=== PATIENT | female | born 1940 | race Caucasian/White ===

== ENCOUNTER 2020-04-11 07:53 | Outpatient (CLI) | payer MEDICARE, OTHER, SELFPAY ==
--- NOTE | ~2020-04-11 | CT_ITS ---
EXAMINATION: CT abdomen pelvis w con DATE: 04/11/2020 08:34 INDICATION: Unspecified abdominal pain TECHNIQUE: Computed tomography (CT) of the abdomen and pelvis was performed with 100 cc Omnipaque 350 intravenous contrast. The dose-length product was 1132.66 mGy-cm. Automated exposure control and ite rative reconstruction technique were employed. COMPARISON: None. FINDINGS: There is lingular atelectasis. Cardiomegaly. No significant pleural or pericardial effusion . There is a upper abdominal ventral hernia containing nonobstructed colon. Small fat-containing umbi lical hernia. The liver, spleen, pancreas, adrenal glands and kidneys are unremarkable. Gallbladder is not identifi ed, likely surgically absent. There is atherosclerosis of the aorta without aneurysm. No lymphadenopa thy. Nonobstructive bowel gas pattern. No free air or free fluid. No osteolytic or osteoblastic lesio ns. Moderate lumbar spondylosis. IMPRESSION: 1. Upper abdominal ventral hernia containing nonobstructed colon. Small fat-containing umbilical solo ia. 2: No acute abdominal abnormality identified. Reviewed, dictated and finalized at location A. IMPRESSION: 1. Upper abdominal ventral hernia containing nonobstructed colon. Small fat-con taining umbilical hernia. 2: No acute abdominal abnormality identified.
[2020-04-11 08:21] LABS: Estimated Glomerular Filt Rate 40
== END 2020-04-11 07:54 | disposition home or self-care (01) ==
PROVIDERS: PCP Internal Medicine; Visit Provider Physician Assistant
DX: K43.9 Ventral hernia without obstruction or gangrene (principal)
CPT/HCPCS: 36415; 74177; Q9967

== ENCOUNTER 2021-01-15 09:51 | Outpatient (CLI) | payer MEDICARE, SELFPAY | END 2021-01-15 09:52 | disposition home or self-care (01) | LOC: ANHCOVIDVC 09:51 | PROVIDERS: PCP Internal Medicine; Visit Provider Internal Medicine | DX: Z23 Encounter for immunization (principal) | CPT/HCPCS: 0001A; 91300 ==

== ENCOUNTER 2021-02-05 09:59 | Outpatient (CLI) | payer MEDICARE, SELFPAY | END 2021-02-05 10:00 | disposition home or self-care (01) | LOC: ANHCOVIDVC 09:59 | PROVIDERS: PCP Internal Medicine | DX: Z23 Encounter for immunization (principal) | CPT/HCPCS: 0002A; 91300 ==

== ENCOUNTER 2021-05-17 00:08 | Day surgery (SDC) | payer MEDICARE, SELFPAY ==
[2021-05-06 10:26] VITALS: BMI 38.3
[2021-05-17 07:44] VITALS: BP 138/69; PULSE 59; RESP 18; TEMP 35.8; O2SAT 97
[2021-05-17] MEDS: LACTATED RINGERS 1,000 ML 150 ML IV CONT (07:51)
[2021-05-17 07:57] LABS: Glucose Point of Care 99 mg/dl (65-105)
--- NOTE | 2021-05-17 08:40 | WPDANESEPPF ---
Anes - Initial Pre Proc Eval Procedure: Operation Date: 05/17/21 09:00 Proposed Procedures p Esophagogastroduodenoscopy - Lai Rollins MD Date/Time: 05/17/21 08:40 Surgeon: Lai Rollins MD Pre Op Diagnosis: dysphagia Patient Data Age: 80 Gender: F Height: 1.55 m Weight: 93 kg Last Vital Signs Temp 96.5 F L 05/17/21 07:44 Pulse 59 L 05/17/21 07:44 Resp 18 05/17/21 07:44 BP 138/69 05/17/21 07:44 Pulse Ox 97 05/17/21 07:44 Allergies Allergy/AdvReac Type Severity Reaction Status Date / Time lisinopril Allergy Mild Cough Verified 05/17/21 07:43 Home Medications Medication Instructions Recorded Confirmed Type aspirin 81 mg tablet,delayed 81 mg PO DAILY 03/26/20 05/06/21 History release atorvastatin 20 mg tablet 20 mg PO DAILY 03/26/20 05/06/21 History ergocalciferol (vitamin D2) 1,250 1,250 mcg PO .every other week cap 03/26/20 05/06/21 History mcg (50,000 unit) capsule furosemide 20 mg tablet 40 mg PO QAM tablet 03/26/20 05/06/21 History hydralazine 25 mg tablet 25 mg PO BID tablet 03/26/20 05/06/21 History lancets #50 each 03/26/20 03/28/21 History losartan 25 mg tablet 25 mg PO DAILY 03/26/20 05/06/21 History metoprolol tartrate 25 mg tablet 12.5 mg PO BID tablet 03/26/20 05/17/21 History oxybutynin chloride 5 mg tablet 5 mg PO DAILY 03/26/20 05/06/21 History blood sugar diagnostic #100 ea 11/12/20 03/28/21 Rx lancets 33 gauge #100 each 11/12/20 03/28/21 Rx fluticasone propionate 50 2 spray INTRANASAL DAILY PRN #15.8 12/26/20 05/06/21 Rx mcg/actuation nasal ml spray,suspension levothyroxine 112 mcg tablet 112 mcg PO DAILY #90 tablet 02/14/21 05/06/21 Rx metformin 500 mg tablet 500 mg PO BID #180 tablet 04/08/21 05/06/21 Rx cyclobenzaprine 5 mg PO DAILY 05/06/21 05/06/21 History Laboratory Tests 05/17/21 07:50 POC Capillary Glucose 99 mg/dl mg/dl (65-105) Patient hx anesthesia problems: none Family hx anesthesia problems: none [facility] Past Medical History Medical History (Updated 05/17/21 @ 08:40 by Aaron Guillaume MD) Essential (primary) hypertension Hypothyroidism Obesity Surgical History Surgical History (Updated 05/17/21 @ 08:40 by Aaron Guillaume MD) S/P CABG (coronary artery bypass graft) Family History Family History Sibling Patient's sister is in good health Family history of diabetes mellitus in first degree relative Patient's brother is in good health Father Family history of diabetes mellitus in first degree relative Patient's father is Mother Patient's mother is Social History Social History Smoking status: Never smoker Second hand tobacco smoke exposure: No Alcohol intake: current Alcohol use details: socially Substance use: never Substance use type: does not use Living arrangements: alone Spiritual care concerns: No Anes - Eval Final PreProcedure Day of Procedure 05/17/21 08:40 Patient weight: obese Heart: regular rate and rhythm Airway: Mallampati scale class II Neurological: alert and oriented Last oral intake: >/= 8 hours ASA classification: III Emergent: no Anesthetic plan: proceed Anesthesia type and monitoring: general GIVS and standard monitoring Informed Consent: The patient's anesthetic plan and its attendant risks and benefits were discussed with the patient/family/POA. Questions were solicited and answers provided to the satisfaction of the patient/family/POA.
--- NOTE | 2021-05-17 08:56 | PM.HPGS ---
History of Present Illness History of Present Illness Consent: Risks, benefits, and alternatives have been discussed and questions answered. Patient agrees to proceed with procedure. Chief complaint: dysphagia Narrative: Leila Baugh is a 80 year old female with intermittent dysphagia, no recent EGD Review of Systems Constitutional: Constitutional: Denies headache(s) and Denies weakness Eyes: Eyes: Denies blurry vision ENT: Reports Normal hearing present, Denies headache(s) and Denies neck pain Cardiovascular: Cardiovascular: Denies chest pain and Denies dyspnea Respiratory: Respiratory: Denies dyspnea Gastrointestinal: Gastrointestinal: Reports no additional gastrointestinal complaints Genitourinary: Genitourinary: Denies dysuria Musculoskeletal: Musculoskeletal: Denies neck pain Integumentary/Breasts: Skin/Breast: Denies dry skin Neurologic: Reports Normal hearing present, Denies headache(s) and Denies weakness Psychiatric: Psychiatric: Denies anxiety Endocrine: Endocrine: Denies change in body appearance Hematologic/Lymphatic: Hematologic/Lymphatic: Denies easy bleeding Allergic/Immunologic: Allergic/Immunologic: Denies urticaria PMFSH Past Medical History Medical History (Updated 05/17/21 @ 08:40 by Aaron Guillaume MD) Essential (primary) hypertension Hypothyroidism Obesity Surgical History Surgical History (Updated 05/17/21 @ 08:40 by Aaron Guillaume MD) S/P CABG (coronary artery bypass graft) Family History Family History Sibling Patient's sister is in good health Family history of diabetes mellitus in first degree relative Patient's brother is in good health Father Family history of diabetes mellitus in first degree relative Patient's father is Mother Patient's mother is Social History Social History Smoking status: Never smoker Second hand tobacco smoke exposure: No Alcohol intake: current Alcohol use details: socially Substance use: never Substance use type: does not use Living arrangements: alone Spiritual care concerns: No Meds Home Medications and Allergies Home Medications Medication Instructions Recorded Confirmed Type aspirin 81 mg tablet,delayed 81 mg PO DAILY 03/26/20 05/06/21 History release atorvastatin 20 mg tablet 20 mg PO DAILY 03/26/20 05/06/21 History ergocalciferol (vitamin D2) 1,250 1,250 mcg PO .every other week cap 03/26/20 05/06/21 History mcg (50,000 unit) capsule furosemide 20 mg tablet 40 mg PO QAM tablet 03/26/20 05/06/21 History hydralazine 25 mg tablet 25 mg PO BID tablet 03/26/20 05/06/21 History lancets #50 each 03/26/20 03/28/21 History losartan 25 mg tablet 25 mg PO DAILY 03/26/20 05/06/21 History metoprolol tartrate 25 mg tablet 12.5 mg PO BID tablet 03/26/20 05/17/21 History oxybutynin chloride 5 mg tablet 5 mg PO DAILY 03/26/20 05/06/21 History blood sugar diagnostic #100 ea 11/12/20 03/28/21 Rx lancets 33 gauge #100 each 11/12/20 03/28/21 Rx fluticasone propionate 50 2 spray INTRANASAL DAILY PRN #15.8 12/26/20 05/06/21 Rx mcg/actuation nasal ml spray,suspension levothyroxine 112 mcg tablet 112 mcg PO DAILY #90 tablet 02/14/21 05/06/21 Rx metformin 500 mg tablet 500 mg PO BID #180 tablet 04/08/21 05/06/21 Rx cyclobenzaprine 5 mg PO DAILY 05/06/21 05/06/21 History Allergies Allergy/AdvReac Type Severity Reaction Status Date / Time lisinopril Allergy Mild Cough Verified 05/17/21 07:43 Vital Signs Vital Signs - 24 hr 05/17/21 07:44 Temperature 96.5 F L Pulse Rate 59 L Respiratory Rate 18 Blood Pressure 138/69 Pulse Oximetry 97 Exam Const: General: comfortable and no acute distress HENMT: General nose exam: Normal nares present Eyes: General: appearance normal, both eyes and all related structures Neck: Neck: no
[2021-05-17 09:13] VITALS: BP 106/45; PULSE 50; RESP 10; O2SAT 98
[2021-05-17 09:23] VITALS: BP 113/53; PULSE 56; RESP 16; O2SAT 99
[2021-05-17 09:33] VITALS: BP 165/75; PULSE 53; RESP 13; O2SAT 99
== END 2021-05-17 09:50 | disposition home or self-care (01) ==
PROVIDERS: PCP Internal Medicine; Visit Provider Internal Medicine Gastroenterology
PROC: 0DJ08ZZ Inspection of Upper Intestinal Tract, Via Natural or Artificial Opening Endoscopic (ICD-10-PCS; CPT 43235; principal; 2021-05-17 09:00)
DX: R13.19 Other dysphagia (principal); K29.30 Chronic superficial gastritis without bleeding; I10 Essential (primary) hypertension; E03.9 Hypothyroidism, unspecified; Z95.1 Presence of aortocoronary bypass graft; Z79.82 Long term (current) use of aspirin; Z79.84 Long term (current) use of oral hypoglycemic drugs; E66.9 Obesity, unspecified; Z68.38 Body mass index [BMI] 38.0-38.9, adult
CPT/HCPCS: 43239; 82948; 87081; 88305; J2001; J2704; J7120

== ENCOUNTER → 2021-08-06 04:03 | Outpatient (CLI) | payer MEDICARE, SELFPAY ==
[2021-08-06 18:18] LABS: SARS-CoV-2 RNA PCR Negative
== END ==
PROVIDERS: PCP Internal Medicine; Visit Provider Physician Assistant
DX: Z20.822 Contact with and (suspected) exposure to COVID-19 (principal)
CPT/HCPCS: C9803; U0003; U0005

== ENCOUNTER 2021-10-21 02:04 | Day surgery (SDC) | payer MEDICARE, SELFPAY ==
[2021-10-17 11:04] VITALS: BMI 37.5
[2021-10-17 11:34] VITALS: BMI 37.5
[2021-10-21 09:08] VITALS: BP 154/77; PULSE 59; RESP 18; TEMP 36.1; O2SAT 97; BMI 38.2
[2021-10-21] MEDS: LACTATED RINGERS 1,000 ML 150 ML IV CONT (09:29)
[2021-10-21 09:30] LABS: Glucose Point of Care 83 mg/dl (65-105)
--- NOTE | 2021-10-21 09:40 | WPDANESEPPF ---
Anes - Initial Pre Proc Eval Procedure: Operation Date: 10/21/21 10:00 Proposed Procedures p Esophagogastroduodenoscopy - Lai Rollins MD Date/Time: 10/21/21 09:40 Surgeon: Lai Rollins MD Pre Op Diagnosis: gastritis Patient Data Age: 81 Gender: F Height: 1.55 m Weight: 91.8 kg Last Vital Signs Temp 97 F L 10/21/21 09:08 Pulse 59 L 10/21/21 09:08 Resp 18 10/21/21 09:08 BP 154/77 H 10/21/21 09:08 Pulse Ox 97 10/21/21 09:08 Allergies Allergy/AdvReac Type Severity Reaction Status Date / Time lisinopril Allergy Intermediate Difficulty Verified 10/21/21 09:04 Breathing Home Medications Medication Instructions Recorded Confirmed Type aspirin 81 mg tablet,delayed 81 mg PO DAILY 03/26/20 10/21/21 History release atorvastatin 20 mg tablet 20 mg PO DAILY 03/26/20 10/21/21 History hydralazine 25 mg tablet 25 mg PO BID tablet 03/26/20 10/21/21 History lancets #50 each 03/26/20 10/21/21 History losartan 25 mg tablet 25 mg PO DAILY 03/26/20 10/21/21 History metoprolol tartrate 25 mg tablet 12.5 mg PO BID tablet 03/26/20 10/21/21 History oxybutynin chloride 5 mg tablet 5 mg PO DAILY 03/26/20 10/21/21 History blood sugar diagnostic #100 ea 11/12/20 10/21/21 Rx lancets 33 gauge #100 each 11/12/20 10/21/21 Rx fluticasone propionate 50 2 spray INTRANASAL DAILY PRN #15.8 12/26/20 10/21/21 Rx mcg/actuation nasal ml spray,suspension cyclobenzaprine 5 mg PO DAILY 05/06/21 10/21/21 History levothyroxine 112 mcg tablet 112 mcg PO DAILY #90 tablet 08/19/21 10/21/21 Rx blood sugar diagnostic #100 ea 10/08/21 10/21/21 Rx metformin 500 mg tablet 500 mg PO BID #180 tablet 10/15/21 10/21/21 Rx cholecalciferol (vitamin D3) 50 mcg PO DAILY 10/17/21 10/21/21 History [Vitamin D3] clopidogrel 75 mg PO DAILY 10/17/21 10/21/21 History furosemide 40 mg PO DAILY 10/17/21 10/21/21 History omeprazole 40 mg PO DAILY 10/17/21 10/21/21 History Laboratory Tests 10/21/21 09:27 POC Capillary Glucose 83 mg/dl mg/dl (65-105) Patient hx anesthesia problems: none Family hx anesthesia problems: none Results Review: All pre-operative results and documents have been reviewed as part of the pre-operative evaluation. [facility] Past Medical History Medical History (Updated 08/29/21 @ 12:24 by Rodo Gutiérrez DO) Essential (primary) hypertension Hypothyroidism Obesity Surgical History Surgical History S/P CABG (coronary artery bypass graft) Family History Family History Sibling Patient's sister is in good health Family history of diabetes mellitus in first degree relative Patient's brother is in good health Father Family history of diabetes mellitus in first degree relative Patient's father is Mother Patient's mother is Social History Social History Smoking status: Never smoker Second hand tobacco smoke exposure: No Alcohol intake: current Alcohol use details: socially Substance use: never Substance use type: does not use Living arrangements: with family Spiritual care concerns: No Anes - Eval Final PreProcedure Day of Procedure 10/21/21 09:40 Patient weight: obese Heart: regular rate and rhythm Lungs: clear to auscultation Airway: Mallampati scale class II Neurological: alert and oriented Last oral intake: >/= 8 hours ASA classification: III Emergent: no Anesthetic plan: proceed Anesthesia type and monitoring: general GIVS and standard monitoring Results Review: All pre-operative results and documents have been reviewed as part of the pre-operative evaluation. Informed Consent: The patient's anesthetic plan and its attendant risks and benefits were discussed with the patient/family/POA. Questions were solicited and ans
--- NOTE | 2021-10-21 10:06 | PM.HPGS ---
History of Present Illness History of Present Illness Consent: Risks, benefits, and alternatives have been discussed and questions answered. Patient agrees to proceed with procedure. Chief complaint: gastritis Narrative: Leila Baugh is a 81 year old female with erosive gastritis and ulcers now on ppi daily, she is feeling better now. Review of Systems Constitutional: Constitutional: Denies headache(s) and Denies weakness Eyes: Eyes: Denies blurry vision ENT: Reports Normal hearing present, Denies headache(s) and Denies neck pain Cardiovascular: Cardiovascular: Denies chest pain and Denies dyspnea Respiratory: Respiratory: Denies dyspnea Gastrointestinal: Gastrointestinal: Reports no additional gastrointestinal complaints Genitourinary: Genitourinary: Denies dysuria Musculoskeletal: Musculoskeletal: Denies neck pain Integumentary/Breasts: Skin/Breast: Denies dry skin Neurologic: Reports Normal hearing present, Denies headache(s) and Denies weakness Psychiatric: Psychiatric: Denies anxiety Endocrine: Endocrine: Denies change in body appearance Hematologic/Lymphatic: Hematologic/Lymphatic: Denies easy bleeding Allergic/Immunologic: Allergic/Immunologic: Denies urticaria PMFSH Past Medical History Medical History (Updated 10/21/21 @ 10:07 by Lai Rollins MD) Erosive gastritis Essential (primary) hypertension Hypothyroidism Obesity Surgical History Surgical History S/P CABG (coronary artery bypass graft) Family History Family History Sibling Patient's sister is in good health Family history of diabetes mellitus in first degree relative Patient's brother is in good health Father Family history of diabetes mellitus in first degree relative Patient's father is Mother Patient's mother is Social History Social History Smoking status: Never smoker Second hand tobacco smoke exposure: No Alcohol intake: current Alcohol use details: socially Substance use: never Substance use type: does not use Living arrangements: with family Spiritual care concerns: No Meds Home Medications and Allergies Home Medications Medication Instructions Recorded Confirmed Type aspirin 81 mg tablet,delayed 81 mg PO DAILY 03/26/20 10/21/21 History release atorvastatin 20 mg tablet 20 mg PO DAILY 03/26/20 10/21/21 History hydralazine 25 mg tablet 25 mg PO BID tablet 03/26/20 10/21/21 History lancets #50 each 03/26/20 10/21/21 History losartan 25 mg tablet 25 mg PO DAILY 03/26/20 10/21/21 History metoprolol tartrate 25 mg tablet 12.5 mg PO BID tablet 03/26/20 10/21/21 History oxybutynin chloride 5 mg tablet 5 mg PO DAILY 03/26/20 10/21/21 History blood sugar diagnostic #100 ea 11/12/20 10/21/21 Rx lancets 33 gauge #100 each 11/12/20 10/21/21 Rx fluticasone propionate 50 2 spray INTRANASAL DAILY PRN #15.8 12/26/20 10/21/21 Rx mcg/actuation nasal ml spray,suspension cyclobenzaprine 5 mg PO DAILY 05/06/21 10/21/21 History levothyroxine 112 mcg tablet 112 mcg PO DAILY #90 tablet 08/19/21 10/21/21 Rx blood sugar diagnostic #100 ea 10/08/21 10/21/21 Rx metformin 500 mg tablet 500 mg PO BID #180 tablet 10/15/21 10/21/21 Rx cholecalciferol (vitamin D3) 50 mcg PO DAILY 10/17/21 10/21/21 History [Vitamin D3] clopidogrel 75 mg PO DAILY 10/17/21 10/21/21 History furosemide 40 mg PO DAILY 10/17/21 10/21/21 History omeprazole 40 mg PO DAILY 10/17/21 10/21/21 History Allergies Allergy/AdvReac Type Severity Reaction Status Date / Time lisinopril Allergy Intermediate Difficulty Verified 10/21/21 09:04 Breathing Vital Signs Vital Signs - 24 hr 10/21/21 09:08 Temperature 97 F L Pulse Rate 59 L Respiratory Rate 18 Blood Pressure 154/77 H Pulse Oximetry 97
[2021-10-21 10:26] VITALS: BP 160/51; PULSE 50; RESP 18; O2SAT 100
[2021-10-21 10:36] VITALS: BP 143/61; PULSE 51; RESP 16; O2SAT 98
[2021-10-21 10:46] VITALS: BP 127/69; PULSE 52; RESP 18; O2SAT 99
== END 2021-10-21 11:05 | disposition home or self-care (01) ==
PROVIDERS: PCP Internal Medicine; Visit Provider Internal Medicine Gastroenterology
PROC: 0DJ08ZZ Inspection of Upper Intestinal Tract, Via Natural or Artificial Opening Endoscopic (ICD-10-PCS; CPT 43235; principal; 2021-10-21 10:00)
DX: Z09 Encounter for follow-up examination after completed treatment for conditions other than malignant neoplasm (principal); K29.70 Gastritis, unspecified, without bleeding; K44.9 Diaphragmatic hernia without obstruction or gangrene; I10 Essential (primary) hypertension; E03.9 Hypothyroidism, unspecified; E66.9 Obesity, unspecified; Z68.38 Body mass index [BMI] 38.0-38.9, adult; Z79.82 Long term (current) use of aspirin; Z79.84 Long term (current) use of oral hypoglycemic drugs; Z79.02 Long term (current) use of antithrombotics/antiplatelets; Z95.1 Presence of aortocoronary bypass graft
CPT/HCPCS: 43235; 82948; J2704; J7120

== ENCOUNTER 2022-10-18 09:32 | Observation (INO) | payer MEDICARE, SELFPAY ==
--- NOTE | ~2022-10-18 | XR_ITS ---
XR ankle LT min 3V, XR foot LT min 3V 10/18/2022 11:24 Indication: Left foot and ankle pain Procedure: 4 views left ankle and 4 views left foot Comparison: No prior studies for comparison. Findings: Osteopenia. Ankle mortise intact. There is extensive atherosclerosis. There are degenerativ e calcaneal enthesophytes. There is midfoot osteoarthritis. There are severe degenerative changes at the first, second and third tarsal metatarsal joints. There is a distal fifth metatarsal fracture, li saniya chronic. Correlate for point tenderness. Mild soft tissue swelling lateral to the fifth metatars al. There is soft tissue swelling lateral to the ankle. Impression: 1: No acute fracture. 2: There is a distal fifth metatarsal fracture which appears chronic. 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 Reviewed, dictated and finalized at location A. GRADER Impression: 1: No acute fracture. 2: There is a distal fifth metatarsal fracture which appears chronic. 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 Impression: 1: No acute fracture. 2: There is a distal fifth metatarsal fracture which appears chronic. 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
--- NOTE | ~2022-10-18 | XR_ITS ---
EXAM: XR knee LT 2V DATE: 10/18/2022 16:48 HISTORY: Left knee pain . COMPARISON: 01/08/2016. FINDINGS: Decreased mineralization. Persistent displacement of the patellar component, otherwise unc omplicated appearing left total knee arthroplasty. No osseous fracture or dislocation. No lytic or bl astic lesion. Joint spaces are maintained. No erosion or periosteal change. Soft tissues within dajuan l limits. Small left knee joint effusion. IMPRESSION: No acute radiographic finding in the left knee. Reviewed, dictated and finalized at location K. NDER SANDER OPERATOR
--- NOTE | ~2022-10-18 | US_ITS ---
EXAMINATION:US venous doppler LE LT INDICATION:Left leg pain TECHNIQUE: Multiple grayscale, color flow and Doppler images of the left lower extremity deep venous systems were obtained and reviewed. COMPARISON: 09/13/2028 FINDINGS: The common femoral, superficial femoral and popliteal veins demonstrate normal respiratory variation, augmentation and compressibility. Color flow is also seen within the posterior tibial, pe roneal, greater saphenous and profunda veins. IMPRESSION: 1: No lower extremity deep venous thrombosis. Reviewed, dictated and finalized at location A. GER TERMINAL
[2022-10-18 09:41] VITALS: BP 182/47; PULSE 52; RESP 18; TEMP 36.6; O2SAT 97
--- NOTE | 2022-10-18 10:29 | ED.EXTPRO ---
HPI - Extremity Problem General Chief complaint: Extremity Problem,Nontraumatic Stated complaint: leg pain Time Seen by Provider: 10/18/22 10:29 Related Data Home Medications Medication Instructions Recorded Confirmed aspirin 81 mg tablet,delayed 81 mg PO DAILY 03/26/20 08/18/22 release (Adult Low Dose Aspirin) atorvastatin 20 mg tablet 20 mg PO DAILY 03/26/20 08/18/22 hydralazine 25 mg tablet 25 mg PO BID 03/26/20 08/18/22 lancets (Microlet Lancet) #50 ea 03/26/20 08/18/22 losartan 25 mg tablet 25 mg PO DAILY 03/26/20 08/18/22 metoprolol tartrate 25 mg tablet 12.5 mg PO BID 03/26/20 08/18/22 oxybutynin chloride 5 mg tablet 5 mg PO DAILY 03/26/20 08/18/22 cyclobenzaprine 5 mg tablet 5 mg PO DAILY muscle spasm 05/06/21 08/18/22 cholecalciferol (vitamin D3) 50 50 mcg PO DAILY 10/17/21 08/18/22 mcg (2,000 unit) tablet (Vitamin D3) clopidogrel 75 mg tablet 75 mg PO DAILY 10/17/21 08/18/22 furosemide 40 mg tablet 40 mg PO DAILY 10/17/21 08/18/22 Allergies Allergy/AdvReac Type Severity Reaction Status Date / Time lisinopril Allergy Intermediate Difficulty Verified 10/18/22 09:48 Breathing PMFSH Past Medical History Medical History Erosive gastritis Essential (primary) hypertension Hypothyroidism Obesity Surgical History Surgical History S/P CABG (coronary artery bypass graft) Family History Family History Sibling Patient's sister is in good health Family history of diabetes mellitus in first degree relative Patient's brother is in good health Father Family history of diabetes mellitus in first degree relative Patient's father is Mother Patient's mother is Social History Social History Smoking status: Never smoker Second hand tobacco smoke exposure: No Alcohol intake: current Alcohol use details: socially Substance use: never Substance use type: does not use Spiritual care concerns: No Course Reevaluation(s) Reevaluation #1: The patient and her daughter decided to not to go home because she does not have any care management assistant at home, and she is hurting and the possibility of fall is very high. They decided to go to a alf for pain management. Date: 10/18/22 Time: 12:55 Vital Signs Vital signs: Vital Signs Temperature 36.6 C 10/18/22 09:41 Pulse Rate 52 L 10/18/22 09:41 Respiratory Rate 18 10/18/22 09:41 Blood Pressure 182/47 H 10/18/22 09:41 Pulse Oximetry 97 10/18/22 09:41 Oxygen Delivery Room Air 10/18/22 09:41 Temperature 36.6 C 10/18/22 09:41 Pulse Rate 56 L 10/18/22 11:43 Respiratory Rate 18 10/18/22 11:43 Blood Pressure 202/59 H 10/18/22 11:43 Pulse Oximetry 96 10/18/22 11:43 Oxygen Delivery Room Air 10/18/22 09:41 MDM - Extremity (Nontraumatic) Imaging Data Radiologist's impression: Impressions Venous Doppler Study 10/18/22 10:28 IMPRESSION: 1: No lower extremity deep venous thrombosis. Ankle X-Ray 10/18/22 11:26 Impression: 1: No acute fracture. 2: There is a distal fifth metatarsal fracture which appears chronic. 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 Foot X-Ray 10/18/22 11:26 Impression: 1: No acute fracture. 2: There is a distal fifth metatarsal fracture which appears chronic. 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 Discharge Plan Discharge Clinical Impression: Polyarticular osteoarthritis, Unable to manage residence-related activities Patient Disposition: Still a Patient Condition: Stable Prescriptions: New tramadol 50 mg tablet 50 mg PO Q4H PRN (Reason: pain) Qty: 20 0RF No Action aspirin [Adult Low Dose Aspirin] 81 mg
[2022-10-18] MEDS: HYDROcodone/acetaminophen (*CRX) 5-325 MG TABLET 1 TAB PO (11:31)
[2022-10-18 11:43] VITALS: BP 202/59; PULSE 56; RESP 18; O2SAT 96
--- NOTE | 2022-10-18 12:25 | PC.NURSE ---
Pt and her daughter voiced concern going home, and be able to fully function on her own. Pt and family are thinking about staying and looking for chcf placement.
--- NOTE | 2022-10-18 13:20 | PC.NURSE ---
Heart healthy tray ordered for pt at [id number]
--- NOTE | 2022-10-18 13:25 | PM.IMHP ---
H&P: HPI History of Present Illness Date/Time: 10/18/22 13:25 Chief Complaint: Left leg pain Narrative: This is an 82-year-old female patient who lives home alone. The patient complains of pain and swelling to her left knee which has been chronic. The patient stated that the pain has been severe that she is not able to walk on it. The patient stated that she is scheduled in the near future to have the orthopedic physician to give her injections in the left knee. Her H&H is 10.8 and 32.5 with the baseline around 11.4 and 34.2. Her urine is clear and COVID is negative. The patient stated she has not had any injury to her left knee or left leg. Her foot x-ray on the left shows no acute fracture. There is a distal 5th metatarsal fracture which appears chronic. 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 The left ankle x-ray was read as no acute fracture. There is a distal 5th metatarsal fracture which appears chronic. 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 Venous Doppler of the left leg was read as no lower extremity deep vein thrombosis. The patient is being admitted to inpatient status on the date of service of 10/18/2022. Review of Systems Review of Systems: All systems reviewed & are unremarkable except as noted in HPI and below Constitutional: Constitutional: Reports as per HPI and Reports no additional constitutional complaints Eyes: Eyes: Reports as per HPI and Reports no additional eye complaints ENT: Reports system reviewed and no additional complaints, except as documented and Reports Normal hearing present Cardiovascular: Cardiovascular: Reports no additional cardiovascular complaints Respiratory: Respiratory: Reports no additional respiratory complaints and Reports no additional respiratory complaints Gastrointestinal: Gastrointestinal: Reports as per HPI and Reports no additional gastrointestinal complaints Musculoskeletal: Musculoskeletal: Reports no additional musculoskeletal complaints Integumentary/Breasts: Skin/Breast: Reports system reviewed and no additional complaints, except as docu and Reports as per HPI Neurologic: Reports system reviewed and no additional complaints, except as documented, Reports as per HPI and Reports Normal hearing present Psychiatric: Psychiatric: Reports no additional psychiatric complaints and Reports as per HPI Endocrine: Endocrine: Reports no additional endocrine complaints Hematologic/Lymphatic: Hematologic/Lymphatic: Reports no additional hematologic/lymphatic complaints Allergic/Immunologic: Allergic/Immunologic: Reports no additional allergic/immunologic complaints [facility] Past Medical History Medical History (Updated 10/18/22 @ 17:18 by Jesusita Linda NP) CAD (coronary artery disease) Cholecystitis with cholelithiasis Erosive gastritis Essential (primary) hypertension Hypothyroidism Obesity Titubation Type 2 diabetes mellitus Surgical History Surgical History Hx of cholecystectomy S/P CABG (coronary artery bypass graft) S/P rotator cuff repair Total knee replacement status Family History Family History Sibling Patient's sister is in good health Family history of diabetes mellitus in first degree relative Patient's brother is in good health Father Family history of diabetes mellitus in first degree relative Patient's father is Mother Patient's mother is Social History Social History (Updated 10/18/22 @ 16:51 by Jesusita Linda NP) Social History: The patient is and has 3 children. The patient is retired from [employer]. She has never smoked. She does not use any alcohol marijuana or illicit drugs. Her children on the durable power patent attorney for healthcare. Code status full code Smoking status: Never smoker Second hand tobac
[2022-10-18 13:55] LABS: Basophils Percent Auto 0.4 % (0.2-1.2); Eosinophils Absolute Auto 0.1 K/mm3 (0-0.3); Eosinophils Percent Auto 0.6 % (0-4.4); Hematocrit 32.5 % (37.0-47.0); Hemoglobin 10.8 g/dL (12.0-15.0); Immature Granulocyte Absolute 0.02 K/mm3 (0.00-0.031); Immature Granulocyte Percent A 0.2 % (0-0.5); Lymphocytes Absolute Auto 1.32 K/mm3 (0.9-3.2); Lymphocytes Percent Auto 13.8 % (18.3-44.2); Mean Corpuscular HGB Conc 33.2 g/dl (32-36); Mean Corpuscular Hemoglobin 30.4 pg (26-34); Mean Corpuscular Volume 91.5 fl (80-100); Mean Platelet Volume 10.9 fl (7.4-10.4); Monocytes Absolute Auto 1.1 K/mm3 (0.1-0.6); Monocytes Percent Auto 11.8 % (2.6-8.5); Neutrophils Percent Auto 73.2 % (45.5-73.1); Platelet Count Result 160 k/mm3 (150-375); Red Blood Count 3.55 M/mm3 (4.2-5.4); Red Cell Distribution Width 13.5 % (11.5-14.5); White Blood Count 9.6 K/mm3 (4.5-10.0)
[2022-10-18 14:13] LABS: Alanine Aminotransferase 13 U/L (6-35); Albumin Level 3.7 g/dL (3.5-5.1); Alkaline Phosphatase 82 U/L (38-126); Anion Gap 6 mmol/L (8-16); Aspartate Amino Transferase 16 U/L (14-36); Bilirubin,Total 0.4 mg/dL (0.2-1.3); Blood Urea Nitrogen 18 mg/dL (7-17); Carbon Dioxide 29 mmol/L (22-30); Chloride 105 mmol/L (98-107); Estimated CRCL calculation 39 ml/min; Estimated Glomerular Filt Rate 53; Glucose 107 mg/dL (65-110); Potassium 3.3 mmol/L (3.4-5.0); Sodium 140 mmol/L (137-145); Uric Acid 9.6 mg/dL (2.5-7.5)
[2022-10-18 14:30] LABS: SARS-CoV-2 RNA PCR Negative
[2022-10-18 14:37] LABS: Appearance Urine Clear (Clear); Bilirubin Urine Negative (Negative); Blood Urine Negative (Negative); Color Urine Yellow (Yellow); Glucose Urine UA Negative (Negative); Ketones Urine Negative (Negative); Leukocyte Esterase Ur Negative LEU/UL (Negative); Nitrate Urine Negative (Negative); Protein Urine 3+ mg/dL (Negative); Specific Grav Ur 1.015 (1.001-1.035); Urobilinogen Urine 0.2 mg/dL (<2.0); pH Urine 5.5 (5.0-9.0)
[2022-10-18 14:42] LABS: Vitamin D 25 Hydroxy 42.4 ng/mL
[2022-10-18 14:45] LABS: Mucus Urine Rare /lpf; RBC Urine 0-2 /hpf (0-2); Squamous Epithelial Cell Urine Rare /hpf (Few); WBC Urine 0-3 /hpf
[2022-10-18 14:47] LABS: Add Urine Microscopic? YES
[2022-10-18 15:17] VITALS: BMI 35.9
[2022-10-18 16:59] LABS: Glucose Point of Care 157 mg/dl (65-105)
--- NOTE | 2022-10-18 17:00 | PCCCNOTE ---
Addendum entered by Sakina Suggs RN 10/18/22 17:58: Referrals fax'd successfully to [facility], [facility], and [facility] Addendum entered by Sakina Suggs RN 10/18/22 17:37: PASSR completed, No Level II required. Original Note: Met with patient and daughter Kaylah in ED Room 9 for referral for group home placement. Patient reports that she lives alone with her puppy in [place]. She uses a walker and cane for mobility and is able to do her adls but very slowly. Reports recent falls and difficulty walking. Patient is having pain but daughter Kaylah reports some deconditioning. Requesting SNF placement for rehab with [facility] insurance. Understands will need insurance authorization. First choice, [facility] or [facility], 2nd choice [facility] and 3rd choice [facility]. PT/OT have been ordered.
[2022-10-18 17:03] LABS: INR 1.2; Prothrombin Time 14.3 Seconds (11.1-14.7)
[2022-10-18 17:04] LABS: Partial Thromboplastin Time 36.2 SECONDS (22.3-36.8)
[2022-10-18 17:12] LABS: NT Pro B Type Natriuretic Pept 2300 pg/mL (5-100)
[2022-10-18 17:36] LABS: D Dimer 0.61 ug/mL (<0.48)
[2022-10-18] MEDS: METOPROLOL TARTRATE 12.5 MG TABLET PO (18:09)
[2022-10-18] MEDS: hydrALAZINE HCL 25 MG TABLET PO (18:09)
[2022-10-18] MEDS: POTASSIUM CHLORIDE 20 MEQ PACKET (FOR LIQUID) PO (18:10)
[2022-10-18] MEDS: OXYBUTYNIN CHLORIDE 5 MG TABLET PO (18:10)
[2022-10-18] MEDS: metFORMIN HCL 500 MG TABLET PO (18:10)
[2022-10-18] MEDS: DICLOFENAC SODIUM 1% 100 GM GEL (*BKC) 1 APPLIC TOPICAL (20:17)
[2022-10-18] MEDS: ASPIRIN 81 MG ENTERIC TABLET PO (20:17)
[2022-10-18 20:56] LABS: Glucose Point of Care 168 mg/dl (65-105)
[2022-10-18 21:59] VITALS: BP 139/63; PULSE 49; RESP 14; TEMP 36.2; O2SAT 97
[2022-10-19 06:00] VITALS: BP 151/61; PULSE 57; RESP 14; TEMP 36.3; O2SAT 96
[2022-10-19] MEDS: predniSONE 40 MG, predniSONE 10 MG 50 MG PO (07:29)
[2022-10-19] MEDS: LEVOTHYROXINE SODIUM 112 MCG TABLET PO (07:29)
[2022-10-19 07:54] LABS: Glucose Point of Care 97 mg/dl (65-105)
[2022-10-19 08:13] LABS: Alanine Aminotransferase 10 U/L (6-35); Albumin Level 3.3 g/dL (3.5-5.1); Alkaline Phosphatase 68 U/L (38-126); Anion Gap 5 mmol/L (8-16); Aspartate Amino Transferase 18 U/L (14-36); Bilirubin,Total 0.4 mg/dL (0.2-1.3); Blood Urea Nitrogen 18 mg/dL (7-17); Calcium 8.7 mg/dL (8.4-10.2); Carbon Dioxide 29 mmol/L (22-30); Chloride 102 mmol/L (98-107); Estimated CRCL calculation 36 ml/min; Estimated Glomerular Filt Rate 48; Glucose 90 mg/dL (65-110); Magnesium 1.7 mg/dL (1.6-2.3); Potassium 3.8 mmol/L (3.4-5.0); Sodium 136 mmol/L (137-145)
[2022-10-19 08:17] LABS: Basophils Percent Auto 0.3 % (0.2-1.2); Eosinophils Absolute Auto 0.1 K/mm3 (0-0.3); Eosinophils Percent Auto 1.4 % (0-4.4); Hematocrit 30.7 % (37.0-47.0); Hemoglobin 9.9 g/dL (12.0-15.0); Immature Granulocyte Absolute 0.02 K/mm3 (0.00-0.031); Immature Granulocyte Percent A 0.2 % (0-0.5); Lymphocytes Absolute Auto 1.25 K/mm3 (0.9-3.2); Lymphocytes Percent Auto 14.4 % (18.3-44.2); Mean Corpuscular HGB Conc 32.2 g/dl (32-36); Mean Corpuscular Hemoglobin 30.2 pg (26-34); Mean Corpuscular Volume 93.6 fl (80-100); Mean Platelet Volume 12.1 fl (7.4-10.4); Monocytes Absolute Auto 1.2 K/mm3 (0.1-0.6); Monocytes Percent Auto 13.6 % (2.6-8.5); Neutrophils Absolute Auto 6.1 K/mm3 (1.3-6.7); Neutrophils Percent Auto 70.1 % (45.5-73.1); Platelet Count Result 148 k/mm3 (150-375); Red Blood Count 3.28 M/mm3 (4.2-5.4); Red Cell Distribution Width 13.6 % (11.5-14.5); White Blood Count 8.7 K/mm3 (4.5-10.0)
[2022-10-19 08:20] LABS: Lactic Acid Reflex 0.8 mmol/L (0.7-2.0)
[2022-10-19 08:43] LABS: Hemoglobin A1C 5.9 % (<5.7)
[2022-10-19 08:58] VITALS: PULSE 60
[2022-10-19] MEDS: LOSARTAN POTASSIUM 25 MG TABLET PO (08:58)
[2022-10-19] MEDS: PANTOPRAZOLE 40 MG TABLET PO ×2 (08:58→16:22)
[2022-10-19] MEDS: CLOPIDOGREL BISULFATE 75 MG TABLET PO (08:58)
[2022-10-19] MEDS: ATORVASTATIN 20 MG TABLET PO (08:58)
[2022-10-19] MEDS: metFORMIN HCL 500 MG TABLET PO ×2 (08:58→16:22)
[2022-10-19] MEDS: METOPROLOL TARTRATE 12.5 MG TABLET PO ×2 (08:58→16:25)
[2022-10-19] MEDS: FUROSEMIDE 40 MG TABLET PO (08:58)
[2022-10-19] MEDS: OXYBUTYNIN CHLORIDE 5 MG TABLET PO ×2 (08:58→16:22)
[2022-10-19] MEDS: DICLOFENAC SODIUM 1% 100 GM GEL (*BKC) 1 APPLIC TOPICAL ×4 (08:59→20:15)
[2022-10-19] MEDS: CHOLECALCIFEROL 1,000 UNITS TABLET 1000 UNITS PO (08:59)
[2022-10-19] MEDS: hydrALAZINE HCL 25 MG TABLET PO ×2 (08:59→16:22)
--- NOTE | 2022-10-19 09:15 | PM.IMPN ---
Progress Note: A&P Assessment and Plan (1) Gout flare: Code(s): M10.9 - Gout, unspecified Status: Acute Assessment and Plan: Acute gout flare Probably the reason for the ankle swelling and pain Prednisone on board Start allopurinol uric acid 9.6 Trend pain level PT/OT on board (2) Polyarticular osteoarthritis: Code(s): M15.9 - Polyosteoarthritis, unspecified Status: Acute Assessment and Plan: -the patient has had both of her knees replaced in the past. However the left ankle is swollen up to the mid calf -X-rays did show osteoarthritis in the mid foot. -low-dose prednisone and monitor her blood sugars carefully. -Continue Voltaren gel -PT and OT evaluation would greatly be appreciated -floor care technician has been consulted as well as the patient is not able to take care of herself at home anymore. (3) Type 2 diabetes mellitus: Code(s): E11.9 - Type 2 diabetes mellitus without complications Status: Acute Assessment and Plan: -current glucose is 90 -Accu-Cheks AC and HS -sliding scale insulin -hypoglycemic protocol. -hold metformin for now. -Trend glucose -adjust therapy as indicted (4) Unable to manage residence-related activities: Code(s): R68.89 - Other general symptoms and signs Status: Acute Assessment and Plan: PT and OT evaluation we greatly be appreciated -floor care technician would greatly be appreciated. The patient will either need to go into rehab facility or a usp. (5) PAD (peripheral artery disease): Code(s): I73.9 - Peripheral vascular disease, unspecified Status: Acute Assessment and Plan: -the patient is on Plavix and aspirin. (6) Erosive gastritis: Code(s): K29.60 - Other gastritis without bleeding Status: Acute Assessment and Plan: -continue with omeprazole. (7) Essential (primary) hypertension: Code(s): I10 - Essential (primary) hypertension Status: Acute Assessment and Plan: -current BP is 151/48 -continue Hydralazine, metoprolol, losartan, and Lasix -Trend BP -Adjust therapy as indicated (8) Hypothyroidism: Code(s): E03.9 - Hypothyroidism, unspecified Status: Acute Assessment and Plan: -TSH 4.700, T4 1.31, T3 0.88 -continue with levothyroxine (9) CAD (coronary artery disease): Code(s): I25.10 - Atherosclerotic heart disease of [place] coronary artery without angina pectoris Status: Acute Assessment and Plan: -continue with metoprolol -continue with losartan -continue with Plavix -continue with atorvastatin -continue with aspirin -the patient has a history of 4 vessel CABG. Time Spent With Patient Time with patient: Greater than 35 minutes Subjective Date/time seen: 10/19/22914 Interval history: 10/19/22914 Patient was lying in bed eating breakfast. Patient stated that she is doing okay however her ankle is still swollen. Her uric acid is elevated. Currently patient seems stable. Patient would like to get out of bed however is afraid of the pain. Will get PT and OT involved. 10/18/22? 13:25 This is an 82-year-old female patient who lives home alone.? The patient complains of pain and swelling to her left knee which has been chronic.? The patient stated that the pain has been severe that she is not able to walk on it.? The patient stated that she is scheduled in the near future to have the orthopedic physician to give her injections in the left knee.? Her H&H is 10.8 and 32.5 with the baseline around 11.4 and 34.2.? Her urine is clear and COVID is negative.? The patient stated she has not had any injury to her left knee or left leg.? Her foot x-ray on the left shows no acute fracture.? There is a distal 5th metatarsal fracture which appears chronic.? 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 The left a
[2022-10-19 10:26] LABS: Free T4 Free Thyroxine Reflex 1.31 ng/dL (0.78-2.19)
[2022-10-19 11:54] LABS: Glucose Point of Care 177 mg/dl (65-105)
[2022-10-19 12:32] LABS: Total Triiodothyronine (T3) 0.88 NG/ML (0.97-1.69)
[2022-10-19 13:58] VITALS: BP 151/48; PULSE 53; RESP 16; TEMP 36.6; O2SAT 96
[2022-10-19 16:25] VITALS: PULSE 53
[2022-10-19 16:34] LABS: Glucose Point of Care 261 mg/dl (65-105)
[2022-10-19] MEDS: ASPIRIN 81 MG ENTERIC TABLET PO (20:15)
[2022-10-19 21:04] LABS: Glucose Point of Care 216 mg/dl (65-105)
[2022-10-19 22:00] VITALS: BP 134/58; PULSE 48; RESP 18; TEMP 36.6; O2SAT 97
--- NOTE | 2022-10-20 | ECHO_ITS ---
Patient Info Name: Leila Baugh Age: 82 years : 1940 Gender: Female Ht: 61 in Wt: 187 lbs BSA: 1.95 m2 HR: 75 bpm BP: 159 / 66 mmHg Technical Quality: Good Exam Date: 10/20/2022 11:11 AM Exam Location: [facility] Pul[facility] Patient Status: Inpatient Admit Date: 10/18/2022 Staff Ordering Physician: Jesusita Linda NP Loss Prevention Analyst: Amrita Cheung RCS Attending Provider: Mitchell Uribe MD Referring Physician: Maddi RIVERA; Exam Type: CA echo doppler color flow Study Info Indications R60.9 - Edema, unspecified Complete two-dimensional, color flow and Doppler transthoracic echocardiogram is performed. Summary 1. Complete two-dimensional, color flow and Doppler transthoracic echocardiogram is performed. 2. Left ventricular chamber dimension is normal. 3. Left ventricular systolic function is normal, estimated at 60-65%. 4. There is mildly increased left ventricular wall thickness. 5. The left ventricular diastolic function is grade II diastolic dysfunction. 6. E/e' 13 is mildly elevated. 7. Left atrial chamber dimension is mildly enlarged. 8. There is moderate aortic valve sclerosis. 9. The mitral valve has moderately calcified annulus. 10. There is mild mitral valve regurgitation. 11. There is mild to moderate tricuspid valve regurgitation. 12. Mild pulmonary hypertension, estimated pulmonary arterial systolic pressure is 47 mmHg. 13. There is mild pulmonic regurgitation. Left Ventricle E/e' 13 is mildly elevated. Left ventricular chamber dimension is normal. Left ventricular systolic function is normal, estimated at 60-65%. There is mildly increased left ventricular wall thickness. The left ventricular diastolic function is grade II diastolic dysfunction. Right Ventricle Right ventricular chamber dimension is normal. Right ventricular systolic function is normal. Left Atria Left atrial chamber dimension is mildly enlarged. Right Atria Right atrial chamber dimension is normal. Aortic Valve The aortic valve is trileaflet. There is moderate aortic valve sclerosis. There is no aortic valve stenosis. There is no aortic valve regurgitation. Pulmonic Valve There is mild pulmonic regurgitation. Mitral Valve The mitral valve has moderately calcified annulus. There is no mitral valve stenosis. There is mild mitral valve regurgitation. Tricuspid Valve There is mild to moderate tricuspid valve regurgitation. Mild pulmonary hypertension, estimated pulmonary arterial systolic pressure is 47 mmHg. Pericardium/Pleural There is no pericardial effusion. Inferior Vena Cava Normal inferior vena cava with >50% collapse upon inspiration consistent with normal right atrial pressure, 5 mmHg. Aorta The aortic root size at the sinus of Valsalva is normal. Left Ventricular Outflow Tract Name Value Normal LVOT 2D LVOT Diameter 2.0 cm LVOT Doppler LVOT Peak Gradient 4 mmHg LVOT Mean Gradient 3 mmHg LVOT VTI 33 cm LVOT VTI/AV VTI Ratio 0.7
[2022-10-20] MEDS: LEVOTHYROXINE SODIUM 112 MCG TABLET PO (05:41)
[2022-10-20 06:00] VITALS: BP 159/66; PULSE 51; RESP 18; TEMP 36.6; O2SAT 97
[2022-10-20 07:29] LABS: Basophils Percent Auto 0.4 % (0.2-1.2); Eosinophils Percent Auto 0.4 % (0-4.4); Hematocrit 27.9 % (37.0-47.0); Hemoglobin 9.4 g/dL (12.0-15.0); Immature Granulocyte Absolute 0.03 K/mm3 (0.00-0.031); Immature Granulocyte Percent A 0.4 % (0-0.5); Lymphocytes Absolute Auto 1.34 K/mm3 (0.9-3.2); Mean Corpuscular HGB Conc 33.7 g/dl (32-36); Mean Corpuscular Hemoglobin 30.1 pg (26-34); Mean Corpuscular Volume 89.4 fl (80-100); Mean Platelet Volume 11.4 fl (7.4-10.4); Monocytes Absolute Auto 1.1 K/mm3 (0.1-0.6); Monocytes Percent Auto 13.3 % (2.6-8.5); Neutrophils Absolute Auto 5.8 K/mm3 (1.3-6.7); Neutrophils Percent Auto 69.5 % (45.5-73.1); Platelet Count Result 150 k/mm3 (150-375); Red Blood Count 3.12 M/mm3 (4.2-5.4); Red Cell Distribution Width 13.3 % (11.5-14.5); White Blood Count 8.4 K/mm3 (4.5-10.0)
[2022-10-20 07:40] LABS: Alanine Aminotransferase 11 U/L (6-35); Alkaline Phosphatase 57 U/L (38-126); Anion Gap 2 mmol/L (8-16); Aspartate Amino Transferase 15 U/L (14-36); Bilirubin,Total 0.3 mg/dL (0.2-1.3); Blood Urea Nitrogen 22 mg/dL (7-17); Calcium 8.6 mg/dL (8.4-10.2); Carbon Dioxide 30 mmol/L (22-30); Chloride 101 mmol/L (98-107); Estimated CRCL calculation 36 ml/min; Estimated Glomerular Filt Rate 48; Glucose 112 mg/dL (65-110); Magnesium 1.6 mg/dL (1.6-2.3); Potassium 3.4 mmol/L (3.4-5.0); Sodium 133 mmol/L (137-145)
[2022-10-20 08:19] LABS: Glucose Point of Care 133 mg/dl (65-105)
[2022-10-20 08:46] VITALS: PULSE 52
[2022-10-20] MEDS: METOPROLOL TARTRATE 12.5 MG TABLET PO ×2 (08:46→16:25)
[2022-10-20] MEDS: DICLOFENAC SODIUM 1% 100 GM GEL (*BKC) 1 APPLIC TOPICAL ×3 (08:46→16:27)
[2022-10-20] MEDS: CHOLECALCIFEROL 1,000 UNITS TABLET 1000 UNITS PO (08:46)
[2022-10-20] MEDS: LOSARTAN POTASSIUM 25 MG TABLET PO (08:46)
[2022-10-20] MEDS: allopurinoL 100 MG TABLET PO (08:47)
[2022-10-20] MEDS: FUROSEMIDE 40 MG TABLET PO (08:48)
[2022-10-20] MEDS: OXYBUTYNIN CHLORIDE 5 MG TABLET PO ×2 (08:48→16:26)
[2022-10-20] MEDS: ATORVASTATIN 20 MG TABLET PO (08:48)
[2022-10-20] MEDS: predniSONE 40 MG, predniSONE 10 MG 50 MG PO (08:48)
[2022-10-20] MEDS: PANTOPRAZOLE 40 MG TABLET PO ×2 (08:48→16:26)
[2022-10-20] MEDS: hydrALAZINE HCL 25 MG TABLET PO ×2 (08:49→16:26)
[2022-10-20] MEDS: CLOPIDOGREL BISULFATE 75 MG TABLET PO (08:49)
[2022-10-20] MEDS: metFORMIN HCL 500 MG TABLET PO ×2 (08:49→16:25)
[2022-10-20 12:04] LABS: Glucose Point of Care 158 mg/dl (65-105)
--- NOTE | 2022-10-20 12:45 | PM.IMPN ---
Progress Note: A&P Assessment and Plan (1) Gout flare: Code(s): M10.9 - Gout, unspecified Status: Acute Assessment and Plan: Acute gout flare Probably the reason for the ankle swelling and pain Prednisone on board Continue allopurinol uric acid 9.6 Trend pain level PT/OT on board (2) Polyarticular osteoarthritis: Code(s): M15.9 - Polyosteoarthritis, unspecified Status: Acute Assessment and Plan: -the patient has had both of her knees replaced in the past, swelling is better today -X-rays did show osteoarthritis in the mid foot. -low-dose prednisone and monitor her blood sugars carefully. -Continue Voltaren gel -PT and OT evaluation would greatly be appreciated -nursing care attendant has been consulted as well as the patient is not able to take care of herself at home anymore. (3) Type 2 diabetes mellitus: Code(s): E11.9 - Type 2 diabetes mellitus without complications Status: Acute Assessment and Plan: -current glucose is 112 -Accu-Cheks AC and HS -sliding scale insulin -hypoglycemic protocol. -hold metformin for now. -Trend glucose -adjust therapy as indicted (4) Unable to manage residence-related activities: Code(s): R68.89 - Other general symptoms and signs Status: Acute Assessment and Plan: PT and OT evaluation we greatly be appreciated -nursing care attendant would greatly be appreciated. rehab facility, awaiting acceptance and insurance auth (5) PAD (peripheral artery disease): Code(s): I73.9 - Peripheral vascular disease, unspecified Status: Acute Assessment and Plan: -the patient is on Plavix and aspirin. (6) Erosive gastritis: Code(s): K29.60 - Other gastritis without bleeding Status: Acute Assessment and Plan: -continue with omeprazole. (7) Essential (primary) hypertension: Code(s): I10 - Essential (primary) hypertension Status: Acute Assessment and Plan: -current BP is 159/66 -continue Hydralazine, metoprolol, losartan, and Lasix -Trend BP -Adjust therapy as indicated (8) Hypothyroidism: Code(s): E03.9 - Hypothyroidism, unspecified Status: Acute Assessment and Plan: -TSH 4.700, T4 1.31, T3 0.88 -continue with levothyroxine (9) CAD (coronary artery disease): Code(s): I25.10 - Atherosclerotic heart disease of [place] coronary artery without angina pectoris Status: Acute Assessment and Plan: -continue with metoprolol -continue with losartan -continue with Plavix -continue with atorvastatin -continue with aspirin -the patient has a history of 4 vessel CABG. Time Spent With Patient Time with patient: Greater than 35 minutes Subjective Date/time seen: 10/20/22 12:45 Interval history: 10/20/22 1245 Patient was sitting in the chair excited about eating a salad. She did state that she was doing little better with mobility however she is very slow and very unsteady on her feet. She denies any chest pain, shortness a breath, nausea, vomiting, diarrhea, constipation, sweats, fevers, chills. 10/19/22 0915 Patient was lying in bed eating breakfast. Patient stated that she is doing okay however her ankle is still swollen. Her uric acid is elevated. Currently patient seems stable. Patient would like to get out of bed however is afraid of the pain. Will get PT and OT involved. 10/18/22? 13:25 This is an 82-year-old female patient who lives home alone.? The patient complains of pain and swelling to her left knee which has been chronic.? The patient stated that the pain has been severe that she is not able to walk on it.? The patient stated that she is scheduled in the near future to have the orthopedic physician to give her injections in the left knee.? Her H&H is 10.8 and 32.5 with the baseline around 11.4 and 34.2.? Her urine
[2022-10-20 14:00] VITALS: BP 157/72; PULSE 51; RESP 16; TEMP 36.4; O2SAT 97
[2022-10-20] MEDS: MAGNESIUM SULF 2 GM/WATER 50ML 2 GM/50 ML BAG IVPB (15:25)
[2022-10-20 16:25] VITALS: PULSE 52
[2022-10-20 16:38] LABS: Glucose Point of Care 223 mg/dl (65-105)
[2022-10-20] MEDS: ASPIRIN 81 MG ENTERIC TABLET PO (21:19)
[2022-10-20 21:29] VITALS: BP 158/53; PULSE 49; RESP 20; TEMP 36.4; O2SAT 97
[2022-10-20] MEDS: HYDROcodone/acetaminophen (*CRX) 5-325 MG TABLET 1 TAB PO (22:21)
[2022-10-21 06:00] VITALS: PULSE 81; RESP 18; TEMP 36.3; O2SAT 98
[2022-10-21] MEDS: LEVOTHYROXINE SODIUM 112 MCG TABLET PO (06:36)
[2022-10-21 06:43] VITALS: BP 168/49
[2022-10-21] MEDS: hydrALAZINE HCL 25 MG TABLET PO ×2 (06:44→17:27)
[2022-10-21 07:53] LABS: Glucose Point of Care 107 mg/dl (65-105)
[2022-10-21] MEDS: LOSARTAN POTASSIUM 25 MG TABLET PO (09:38)
[2022-10-21] MEDS: ATORVASTATIN 20 MG TABLET PO (09:38)
[2022-10-21] MEDS: METOPROLOL TARTRATE 12.5 MG TABLET PO ×2 (09:38→17:27)
[2022-10-21] MEDS: FUROSEMIDE 40 MG TABLET PO (09:38)
[2022-10-21] MEDS: PANTOPRAZOLE 40 MG TABLET PO ×2 (09:38→17:27)
[2022-10-21] MEDS: OXYBUTYNIN CHLORIDE 5 MG TABLET PO ×2 (09:38→17:27)
[2022-10-21] MEDS: CHOLECALCIFEROL 1,000 UNITS TABLET 1000 UNITS PO (09:38)
[2022-10-21] MEDS: metFORMIN HCL 500 MG TABLET PO ×2 (09:38→17:27)
[2022-10-21] MEDS: allopurinoL 100 MG TABLET PO (09:38)
[2022-10-21] MEDS: predniSONE 40 MG, predniSONE 10 MG 50 MG PO (09:38)
[2022-10-21] MEDS: CLOPIDOGREL BISULFATE 75 MG TABLET PO (09:38)
[2022-10-21] MEDS: DICLOFENAC SODIUM 1% 100 GM GEL (*BKC) 1 APPLIC TOPICAL ×2 (09:39→21:26)
--- NOTE | 2022-10-21 10:15 | PM.IMPN ---
Progress Note: A&P Assessment and Plan (1) Gout flare: Code(s): M10.9 - Gout, unspecified Status: Acute Assessment and Plan: Acute gout flare Probably the reason for the ankle swelling and pain Prednisone on board, wean to 20mg PO daily Continue allopurinol uric acid 9.6 Trend pain level PT/OT on board (2) Polyarticular osteoarthritis: Code(s): M15.9 - Polyosteoarthritis, unspecified Status: Acute Assessment and Plan: -the patient has had both of her knees replaced in the past, swelling is better today -X-rays did show osteoarthritis in the mid foot. -low-dose prednisone and monitor her blood sugars carefully. -Continue Voltaren gel -PT and OT evaluation would greatly be appreciated -attending ambulatory care has been consulted as well as the patient is not able to take care of herself at home anymore. (3) Type 2 diabetes mellitus: Code(s): E11.9 - Type 2 diabetes mellitus without complications Status: Acute Assessment and Plan: -current glucose is 151 -Accu-Cheks AC and HS -sliding scale insulin -hypoglycemic protocol. -hold metformin for now. -Trend glucose -adjust therapy as indicted (4) Unable to manage residence-related activities: Code(s): R68.89 - Other general symptoms and signs Status: Acute Assessment and Plan: PT and OT evaluation we greatly be appreciated -attending ambulatory care would greatly be appreciated. rehab facility, awaiting acceptance and insurance auth (5) PAD (peripheral artery disease): Code(s): I73.9 - Peripheral vascular disease, unspecified Status: Acute Assessment and Plan: -the patient is on Plavix and aspirin. (6) Erosive gastritis: Code(s): K29.60 - Other gastritis without bleeding Status: Acute Assessment and Plan: -continue with omeprazole. (7) Essential (primary) hypertension: Code(s): I10 - Essential (primary) hypertension Status: Acute Assessment and Plan: -current BP is 168/49 -continue Hydralazine, metoprolol, losartan, and Lasix -Trend BP -Adjust therapy as indicated (8) Hypothyroidism: Code(s): E03.9 - Hypothyroidism, unspecified Status: Acute Assessment and Plan: -TSH 4.700, T4 1.31, T3 0.88 -continue with levothyroxine (9) CAD (coronary artery disease): Code(s): I25.10 - Atherosclerotic heart disease of [place] coronary artery without angina pectoris Status: Acute Assessment and Plan: -continue with metoprolol -continue with losartan -continue with Plavix -continue with atorvastatin -continue with aspirin -the patient has a history of 4 vessel CABG. Time Spent With Patient Time with patient: Greater than 35 minutes Subjective Date/time seen: 10/21/22 1015 Interval history: 10/21/22 1015 Patient was sitting in the chair doing well. She stated that she is still slow in her feet and she is still having hard time getting up and moving around on her own. She denies any chest pain, shortness a breath, nausea, vomiting, diarrhea, constipation, weakness or fatigue. Still waiting for placement at this time. 10/20/22 1245 Patient was sitting in the chair excited about eating a salad. She did state that she was doing little better with mobility however she is very slow and very unsteady on her feet. She denies any chest pain, shortness a breath, nausea, vomiting, diarrhea, constipation, sweats, fevers, chills. 10/19/22 0915 Patient was lying in bed eating breakfast. Patient stated that she is doing okay however her ankle is still swollen. Her uric acid is elevated. Currently patient seems stable. Patient would like to get out of bed however is afraid of the pain. Will get PT and OT involved. 10/18/22? 13:25 This is an 82-year-old female patient who lives home alone.? The
[2022-10-21 12:08] LABS: Glucose Point of Care 151 mg/dl (65-105)
[2022-10-21 14:00] VITALS: BP 121/65; PULSE 76; RESP 14; TEMP 35.8; O2SAT 100
[2022-10-21 17:01] LABS: Glucose Point of Care 217 mg/dl (65-105)
[2022-10-21 20:34] LABS: Glucose Point of Care 213 mg/dl (65-105)
[2022-10-21] MEDS: ASPIRIN 81 MG ENTERIC TABLET PO (21:26)
[2022-10-21 22:00] VITALS: BP 169/51; PULSE 54; RESP 18; TEMP 36.7; O2SAT 96
[2022-10-22 03:43] VITALS: BP 166/60; PULSE 56; RESP 17; TEMP 36.2; O2SAT 97
[2022-10-22] MEDS: LEVOTHYROXINE SODIUM 112 MCG TABLET PO (05:26)
[2022-10-22 07:53] LABS: Hematocrit 29.5 % (37.0-47.0); Hemoglobin 9.7 g/dL (12.0-15.0); Immature Granulocyte Absolute 0.05 K/mm3 (0.00-0.031); Immature Granulocyte Percent A 0.6 % (0-0.5); Lymphocytes Absolute Auto 1.07 K/mm3 (0.9-3.2); Lymphocytes Percent Auto 13.4 % (18.3-44.2); Mean Corpuscular HGB Conc 32.9 g/dl (32-36); Mean Corpuscular Hemoglobin 29.6 pg (26-34); Mean Corpuscular Volume 89.9 fl (80-100); Mean Platelet Volume 11.5 fl (7.4-10.4); Monocytes Absolute Auto 0.8 K/mm3 (0.1-0.6); Monocytes Percent Auto 9.6 % (2.6-8.5); Neutrophils Absolute Auto 6.1 K/mm3 (1.3-6.7); Neutrophils Percent Auto 76.4 % (45.5-73.1); Platelet Count Result 189 k/mm3 (150-375); Red Blood Count 3.28 M/mm3 (4.2-5.4); Red Cell Distribution Width 13.3 % (11.5-14.5)
[2022-10-22 08:14] LABS: Alanine Aminotransferase 12 U/L (6-35); Albumin Level 3.3 g/dL (3.5-5.1); Alkaline Phosphatase 58 U/L (38-126); Anion Gap 5 mmol/L (8-16); Aspartate Amino Transferase 15 U/L (14-36); Bilirubin,Total 0.2 mg/dL (0.2-1.3); Blood Urea Nitrogen 29 mg/dL (7-17); Calcium 8.6 mg/dL (8.4-10.2); Carbon Dioxide 31 mmol/L (22-30); Chloride 97 mmol/L (98-107); Estimated CRCL calculation 33 ml/min; Estimated Glomerular Filt Rate 43; Glucose 120 mg/dL (65-110); Magnesium 1.9 mg/dL (1.6-2.3); Potassium 3.7 mmol/L (3.4-5.0); Sodium 133 mmol/L (137-145)
[2022-10-22 08:25] LABS: Glucose Point of Care 122 mg/dl (65-105)
[2022-10-22 09:34] VITALS: PULSE 56
[2022-10-22] MEDS: DICLOFENAC SODIUM 1% 100 GM GEL (*BKC) 1 APPLIC TOPICAL (09:34)
[2022-10-22] MEDS: predniSONE 20 MG TABLET PO (09:34)
[2022-10-22] MEDS: METOPROLOL TARTRATE 12.5 MG TABLET PO ×2 (09:34→17:29)
[2022-10-22] MEDS: metFORMIN HCL 500 MG TABLET PO ×2 (09:34→17:29)
[2022-10-22] MEDS: LOSARTAN POTASSIUM 25 MG TABLET PO (09:34)
[2022-10-22] MEDS: FUROSEMIDE 40 MG TABLET PO (09:34)
[2022-10-22] MEDS: hydrALAZINE HCL 25 MG TABLET PO ×2 (09:34→17:29)
[2022-10-22] MEDS: ATORVASTATIN 20 MG TABLET PO (09:34)
[2022-10-22] MEDS: CHOLECALCIFEROL 1,000 UNITS TABLET 1000 UNITS PO (09:36)
[2022-10-22] MEDS: allopurinoL 100 MG TABLET PO (09:36)
[2022-10-22] MEDS: CLOPIDOGREL BISULFATE 75 MG TABLET PO (09:36)
[2022-10-22] MEDS: OXYBUTYNIN CHLORIDE 5 MG TABLET PO ×2 (09:36→17:29)
[2022-10-22] MEDS: PANTOPRAZOLE 40 MG TABLET PO ×2 (09:36→17:29)
[2022-10-22 12:10] LABS: Glucose Point of Care 177 mg/dl (65-105)
[2022-10-22 14:00] VITALS: BP 165/55; PULSE 52; RESP 16; TEMP 35.8; O2SAT 98
--- NOTE | 2022-10-22 14:35 | PM.IMPN ---
Progress Note: A&P Assessment and Plan (1) Gout flare: Code(s): M10.9 - Gout, unspecified Status: Acute Assessment and Plan: Patient presented with ankle swelling and pain, felt to be consistent with acute gout flare Uric acid level was 9.6 Symptoms improved with prednisone. Continue taper Continue allopurinol (2) Polyarticular osteoarthritis: Code(s): M15.9 - Polyosteoarthritis, unspecified Status: Chronic Assessment and Plan: X-rays did show osteoarthritis in the mid foot and patient has history of bilateral knee replacement. Continue Voltaren gel (3) Type 2 diabetes mellitus: Code(s): E11.9 - Type 2 diabetes mellitus without complications Status: Acute Assessment and Plan: A1c is 5.9. Blood sugars reasonably well controlled Continue Accu-Cheks, sliding scale insulin, hypoglycemic protocol Home metformin on hold (4) Unable to manage residence-related activities: Code(s): R68.89 - Other general symptoms and signs Status: Acute Assessment and Plan: Patient had some issues with ambulation and felt that she may not be able to care for herself at home She participated in PT/OT Referral placed to SNF, however patient was denied and family opted not to proceed with peer to peer review On further review with family, patient did feel comfortable to return home with the assistance of her daughter; home health services being arranged (5) Erosive gastritis: Code(s): K29.60 - Other gastritis without bleeding Status: Chronic Assessment and Plan: Continue with omeprazole. (6) Essential (primary) hypertension: Code(s): I10 - Essential (primary) hypertension Status: Chronic Assessment and Plan: Blood pressures remained reasonably well controlled continue Hydralazine, metoprolol, losartan, and Lasix (7) Hypothyroidism: Code(s): E03.9 - Hypothyroidism, unspecified Status: Chronic Assessment and Plan: Continue levothyroxine (8) CAD (coronary artery disease): Code(s): I25.10 - Atherosclerotic heart disease of [place] coronary artery without angina pectoris Status: Chronic Assessment and Plan: History of 4 vessel CABG Continue medication therapy per securities underwriter: Metoprolol, losartan, aspirin, Plavix, atorvastatin (9) PAD (peripheral artery disease): Code(s): I73.9 - Peripheral vascular disease, unspecified Status: Chronic Assessment and Plan: Chronic, no acute issues Continue aspirin and Plavix Subjective Date/time seen: 10/22/22 14:35 Interval history: date of service: 10/22/2022 Charline Baugh is an 82-year-old female with a history of CAD, hypertension, hypothyroidism, type 2 diabetes mellitus, who is seen in follow-up for gout flare. Patient states she is feeling okay today. Her weakness has improved. She does have some mild discomfort in her bilateral feet which she rates as 2/10. She also complains of chronic low back pain. She denies shortness of breath, cough, chest pain. She has no additional concerns. Review of Systems Review of Systems: All systems reviewed & are unremarkable except as noted in HPI and below Exam Narrative: General: Well-nourished, well-appearing 82-year-old female, sitting up in bed, comfortable, NARD Neuro: awake, alert and oriented x4, speech clear, no focal neuro deficits noted HEENMT: normocephalic, atraumatic, EOMI, sclerae anicteric Respiratory: clear to auscultation bilaterally, nonlabored breathing Cardio: regular rate, regular rhythm with S1-S2 Abdomen: nondistended, normoactive bowel sounds, soft, nontender to palpation Extremities: no edema, erythema, or tenderness to palpation, DP pulses 2+ bilaterally, able to wiggle toes bilaterally Skin: no rashes or lesions, warm and dry Psych: appropriate mood and affect, judgment and insight intact Objective Data Vi
--- NOTE | 2022-10-22 15:35 | PM.DS ---
DS: Admitting Diagnosis Discharge Date 10/22/2022 Admitting Diagnosis Gout DS: Discharge Diagnosis Discharge Diagnosis (1) Gout flare: Code(s): M10.9 - Gout, unspecified Status: Acute Assessment and Plan: Patient presented with ankle swelling and pain, felt to be consistent with acute gout flare Uric acid level was 9.6 Symptoms improved with prednisone. Continue with outpatient taper Continue allopurinol (2) Polyarticular osteoarthritis: Code(s): M15.9 - Polyosteoarthritis, unspecified Status: Chronic Assessment and Plan: X-rays did show osteoarthritis in the mid foot and patient has history of bilateral knee replacement. Continue Voltaren gel (3) Type 2 diabetes mellitus: Code(s): E11.9 - Type 2 diabetes mellitus without complications Status: Acute Assessment and Plan: A1c is 5.9. Blood sugars reasonably well controlled during admission Continue home metformin (4) Unable to manage residence-related activities: Code(s): R68.89 - Other general symptoms and signs Status: Acute Assessment and Plan: Patient had some issues with ambulation and felt that she may not be able to care for herself at home She participated in PT/OT Referral placed to SNF, however patient was denied and family opted not to proceed with peer to peer review On further review with family, patient did feel comfortable to return home with the assistance of her daughter and home health services were arranged (5) Erosive gastritis: Code(s): K29.60 - Other gastritis without bleeding Status: Chronic Assessment and Plan: Continue omeprazole. (6) Essential (primary) hypertension: Code(s): I10 - Essential (primary) hypertension Status: Chronic Assessment and Plan: Blood pressures remained reasonably well controlled during admission continue home regimen of Hydralazine, metoprolol, losartan, and Lasix (7) Hypothyroidism: Code(s): E03.9 - Hypothyroidism, unspecified Status: Chronic Assessment and Plan: Continue levothyroxine (8) CAD (coronary artery disease): Code(s): I25.10 - Atherosclerotic heart disease of nome coronary artery without angina pectoris Status: Chronic Assessment and Plan: History of 4 vessel CABG Continue medication therapy per bracelet maker novelty: Metoprolol, losartan, aspirin, Plavix, atorvastatin (9) PAD (peripheral artery disease): Code(s): I73.9 - Peripheral vascular disease, unspecified Status: Chronic Assessment and Plan: Chronic, no acute issues Continue aspirin and Plavix DS: Summary Hospital Course Hospital Course: Date of admission: 10/18/2022 Date of discharge: 10/22/2022 Charline Baugh is an 82-year-old female with a history of CAD, hypertension, hypothyroidism, type 2 diabetes mellitus who presented to the emergency department on 10/18/2022 with complaints of left leg, foot, ankle pain. On presentation to the ED, her vital signs were stable, she was afebrile, venous Doppler was negative for DVT, ankle x-ray showed chronic 5th metatarsal fracture with no acute fractures and mild polyarticular osteoarthritis. The patient was admitted to the hospitalist service for further evaluation and management. She was started on prednisone for treatment of acute gout flare with elevated uric acid level. She will continue with the prednisone taper and uric acid lowering therapy. Patient had symptomatic improvement and had overall improvement with her mobility. Initially plan for SNF placement, however unfortunately patient was denied placement and ultimately decided that she could return home with the assistance of her daughter and home health services were arranged per care coordination. Patient family felt comfortable with plans for discharge and patient was discharged in hemodynamically stable condition on 10/22/2022. Time S
--- NOTE | 2022-10-24 11:31 | PC.NURSE ---
daughter Kaylah Conde called and stated that she went to the pharmacy to machine operator picker patient's medications and the pharmacist told her that she needed a physical script for the pain medications. She states they were not given a physical script for the pain medication at discharge. I contacted the nurse Donita Gill who discharged the patient and she stated that she did not know they needed a physical script and did not give them one. I attempted to contact Twyla Child. I left a message on her phone and I am waiting for a call back.
--- NOTE | 2022-10-24 12:29 | PC.NURSE ---
talked with Twyla regarding tramadol script. She did not order the tramadol and recommended the patient take tylenol for pain or to call her primary MD if something more is needed. tramadol script was from ED. patient ended up being admitted and tramadol script stopped. Message left on Kaylah's phone regarding no need for ultram. Discussed with Charline at [phone]. She states that she is not having pain now but just thought that she was supposed to have the medication. I let her know about taking tylenol or calling her doctor if needed for pain. She verbalized understanding.
== END 2022-10-22 18:30 | disposition home health service (06) ==
LOC: ANHED 12:55 → ANH3MEDSUR 10-19 02:03
PROVIDERS: Nurse Practitioner; Admitting Provider Chiropractor; Emergency Provider Emergency Medicine; PCP Internal Medicine; Visit Provider Physician Assistant
DX: M10.9 Gout, unspecified (principal); M15.9 Polyosteoarthritis, unspecified; E11.9 Type 2 diabetes mellitus without complications; R68.89 Other general symptoms and signs; K29.60 Other gastritis without bleeding; I11.9 Hypertensive heart disease without heart failure; E03.9 Hypothyroidism, unspecified; I25.10 Atherosclerotic heart disease of native coronary artery without angina pectoris; I73.9 Peripheral vascular disease, unspecified; M25.562 Pain in left knee; M84.475A Pathological fracture, left foot, initial encounter for fracture; E66.9 Obesity, unspecified; Z68.36 Body mass index [BMI] 36.0-36.9, adult; D64.9 Anemia, unspecified; F10.90 Alcohol use, unspecified, uncomplicated; I27.20 Pulmonary hypertension, unspecified; I80.3 Phlebitis and thrombophlebitis of lower extremities, unspecified; Z20.822 Contact with and (suspected) exposure to COVID-19; Z96.653 Presence of artificial knee joint, bilateral; Z79.82 Long term (current) use of aspirin; Z79.02 Long term (current) use of antithrombotics/antiplatelets; Z79.84 Long term (current) use of oral hypoglycemic drugs; Z95.1 Presence of aortocoronary bypass graft; Z79.891 Long term (current) use of opiate analgesic; Z79.899 Other long term (current) drug therapy; Z83.3 Family history of diabetes mellitus
CPT/HCPCS: 36415; 73560; 73610; 73630; 80053; 81001; 82306; 82948; 83036; 83605; 83735; 83880; 84439; 84443; 84480; 84550; 85025; 85380; 85610; 85730; 93306; 93971; 97110; 97116; 97161; 97165; 97530; 97535; 99285; A9270; G0378; J3475; J7512; U0003; U0005

== ENCOUNTER 2022-10-29 11:54 | Outpatient (NON) | payer MEDICARE, SELFPAY ==
[2022-10-29 12:49] LABS: Albumin Level 3.7 g/dL (3.5-5.1); Anion Gap 6 mmol/L (8-16); Blood Urea Nitrogen 31 mg/dL (7-17); Calcium 8.9 mg/dL (8.4-10.2); Carbon Dioxide 30 mmol/L (22-30); Chloride 99 mmol/L (98-107); Estimated Glomerular Filt Rate 39; Glucose 153 mg/dL (65-110); Phosphorus 2.8 mg/dL (2.5-4.5); Potassium 3.4 mmol/L (3.4-5.0); Sodium 135 mmol/L (137-145)
== END 2022-10-29 11:55 | disposition home or self-care (01) ==
PROVIDERS: PCP Internal Medicine; Visit Provider Physician Assistant
DX: R79.89 Other specified abnormal findings of blood chemistry (principal); M10.9 Gout, unspecified; E11.9 Type 2 diabetes mellitus without complications; K29.60 Other gastritis without bleeding; M15.9 Polyosteoarthritis, unspecified
CPT/HCPCS: 80069

== ENCOUNTER 2023-01-13 18:20 | Inpatient (IN) | payer MEDICARE, SELFPAY ==
--- NOTE | ~2023-01-13 | XR_ITS ---
EXAM: XR lumbar spine 2-3V DATE: 01/13/2023 19:46 HISTORY: fall with lower back pain . COMPARISON: 01/08/2016, CT abdomen and pelvis 04/11/2020. FINDINGS: 5 nonrib-bearing lumbar-type vertebral bodies. Pedicles intact. Normal vertebral body alig nment. Exaggerated lumbar lordosis. Vertebral body heights preserved. Multilevel degenerative disc di sease. Multilevel facet arthropathy. No fracture or dislocation. Aortic atherosclerotic calcification without evident aneurysm. Pelvic phleboliths. IMPRESSION: No acute fracture or traumatic malalignment detected in the lumbar spine. Reviewed, dictated and finalized at location K. STANT PRESS OPERATOR OFFSET
--- NOTE | ~2023-01-13 | XR_ITS ---
EXAMINATION: XR chest 1V portable Exam Date/Time: 01/13/2023 12:30 REPAIRING CALIBRATOR HISTORY: syncope Comparison: None available. RESULT: Lines, tubes, and devices: Multiple fractured sternotomy wires, with migration of several wire fragm ents. Lungs and pleura: Increased bilateral reticular opacities. Indistinct pulmonary vessels. Bibasilar a telectasis. Cardiomediastinal silhouette: Stable. Other: No acute osseous or upper abdominal finding. IMPRESSION: Migrating sternotomy wire fragments, which can be a source of pain. Pulmonary opacities may represent mild pulmonary edema in the appropriate clinical context. Reviewed, dictated and finalized at location K. IRING CALIBRATOR IMPRESSION: Migrating sternotomy wire fragments, which can be a source of pain. Pulmonary o pacities may represent mild pulmonary edema in the appropriate clinical context .
--- NOTE | ~2023-01-13 | CT_ITS ---
EXAMINATION: CT brain wo con DATE: 01/13/2023 19:42 INDICATION: fall with neck and head pain . TECHNIQUE: Computed tomography (CT) of the head was performed without intravenous contrast. The mA wa s adjusted according to patient size. Iterative reconstruction technique was employed. The dose-lengt h product was 605.33 mGy-cm. COMPARISON: None. FINDINGS: No acute intracranial hemorrhage or extra-axial fluid collection. No hydrocephalus, mass, or herniation. No acute ischemic infarct. Unremarkable dural venous sinus attenuation. No acute osseous abnormality. The aerated spaces are clear. Right frontal scalp contusion/hematoma, near the vertex. Mild atrophy and chronic white matter change. Atherosclerotic intracranial calcification. Bilateral l ens replacements. IMPRESSION: No acute intracranial process. Reviewed, dictated and finalized at location K. LLECTUAL PROPERTY LAWYER
--- NOTE | ~2023-01-13 | CT_ITS ---
EXAMINATION: CT cervical spine wo con DATE: 01/13/2023 19:44 INDICATION: fall with head and neck pain TECHNIQUE: Computed tomography (CT) of the cervical spine was performed without intravenous contrast. Automated exposure control and iterative reconstruction technique were employed. The dose-length pro duct was 519.56 mGy-cm. COMPARISON: MR cervical spine 01/11/2018. FINDINGS: Vertebral Body Alignment: Intact. Focal kyphosis centered at C4-5, stable. Trace anterolisthesis at C 2-3, stable. Craniocervical and atlantoaxial alignment: Moderate degenerative change with pannus formation. Alignm ent intact. Osseous structures/fracture: No evidence of a lytic or blastic process in the visualized spine. No e vidence of acute fracture. . Cervical soft tissues: The paraspinal soft tissues planes are maintained. Moderate aortic arch calcif ication. Biapical pleural scarring. Interlobular septal thickening. Small right pleural effusion. Degenerative changes: Multilevel severe degenerative disc disease. Severe right neural foraminal narr owing at C4-5. Severe left neural foraminal narrowing at 3-4. Moderate central canal narrowing at C4- 5 and C5-6. IMPRESSION: No acute fracture or traumatic malalignment in the cervical spine. Interstitial edema. Small right pl eural effusion. Reviewed, dictated and finalized at location K. ICATION SPECIALIST IMPRESSION: No acute fracture or traumatic malalignment in the cervical spine. Interstitial edema. Small right pleural effusion.
--- NOTE | ~2023-01-13 | XR_ITS ---
EXAMINATION: XR foot RT 2V DATE: 01/15/2023 11:47 INDICATION: Right foot dorsal abscess. TECHNIQUE: 2 views of right foot were obtained. COMPARISON: None. FINDINGS: Bone alignment is normal. No fracture. There is mild to moderate osteoarthritis of many of the midfoot and forefoot joints. There is severe osteoarthritis of the naviculocuneiform joints. Ther e is an enthesophyte at plantar aspect of calcaneal tuberosity. There is dorsal foot soft tissue swel ling. IMPRESSION: 1. Polyarticular osteoarthritis. Reviewed, dictated and finalized at location A. IE
--- NOTE | ~2023-01-13 | XR_ITS ---
EXAMINATION: XR shoulder RT min 2V DATE: 01/19/2023 12:04 INDICATION: Right hand tingling. TECHNIQUE: 4 views of right shoulder were obtained. COMPARISON: None. FINDINGS: There is superior subluxation of humeral head with narrowing of the subacromial space and r emodeling of the undersurface of the acromion, consistent with chronic rotator cuff tear with cuff ar thropathy. No fracture. There is severe osteoarthritis of glenohumeral joint and mild osteoarthritis of the acromioclavicular joint. Median sternotomy wires are noted. IMPRESSION: 1. Severe osteoarthritis of glenohumeral joint. 2. Chronic rotator cuff tear with cuff arthropathy. Reviewed, dictated and finalized at location A. R
[2023-01-13 18:57] VITALS: BP 174/69; PULSE 48; RESP 16; TEMP 36.2; O2SAT 97
--- NOTE | 2023-01-13 21:14 | ECG_ITS ---
Measurements Intervals [place] Rate: 41 P: 133 IN: 243 QRS: 123 QRSD: 114 T: 220 QT: 519 QTc: 429 Interpretive Statements SINUS BRADYCARDIA WITH SINUS ARRHYTHMIA WITH FIRST DEGREE AV BLOCK CONSIDER LIMB LEAD REVERSAL INCOMPLETE RIGHT BUNDLE BRANCH BLOCK BORDERLINE ST-T WAVE ABNORMALITY- INFERIOR LEADS BASELINE ARTIFACT- I, II, III, AVR, AVL, AVF, V1-V6 ABNORMAL ECG NO PREVIOUS ECG AVAILABLE FOR COMPARISON Electronically Signed On 01-14-2023 6:35:42 SHOT PEEN OPERATOR by Tino Hong D.O.
--- NOTE | 2023-01-13 21:17 | ED.FALL ---
HPI - Fall General Chief Complaint: Fall Stated Complaint: multiple falls/hi Time Seen by Provider: 01/13/23 20:29 History of Present Illness HPI Narrative: Patient is an 82-year-old female with a history of hypertension, gout, CAD, hypothyroidism, CHF presenting with multiple falls. Patient lives alone and unfortunately has been having increasingly frequent falls at home. Today she had 2 falls. She states that she does not remember tripping. She is unsure why she fell. States that she struck her head on a table. Does not think that she lost consciousness. States that she has been feeling generally weak. She does not think that she felt light headed or nauseated or diaphoretic prior to falling. No chest pain or shortness of breath. Patient's family is concerned due to her increasingly frequent falls. They are also concerned that she seems to be having episodes of left-sided weakness. Patient's daughter states that she sometimes will drag her left foot. Patient states that she does have intermittent paresthesias affecting her left arm. Patient's family feels like the left side of her face was drooping earlier today and she had some slurred speech. The symptoms had resolved prior to her arrival. Patient reports decreased appetite lately but no vomiting or diarrhea, no dysuria, no hematuria, no fevers or cough. Patient does complain of a chronic wound on her right foot for which she is following with podiatry. Related Data Home Medications Medication Instructions Recorded Confirmed aspirin 81 mg tablet,delayed 81 mg PO HS 03/26/20 01/14/23 release (Adult Low Dose Aspirin) atorvastatin 20 mg tablet 20 mg PO DAILY 03/26/20 01/14/23 hydralazine 25 mg tablet 25 mg PO BID 03/26/20 01/14/23 lancets (Microlet Lancet) #50 ea 03/26/20 01/07/23 losartan 25 mg tablet 25 mg PO DAILY 03/26/20 01/14/23 metoprolol tartrate 25 mg tablet 12.5 mg PO BID 03/26/20 01/14/23 cholecalciferol (vitamin D3) 50 50 mcg PO DAILY 10/17/21 01/14/23 mcg (2,000 unit) tablet (Vitamin D3) clopidogrel 75 mg tablet 75 mg PO DAILY 10/17/21 01/14/23 furosemide 40 mg tablet 40 mg PO DAILY 10/17/21 01/14/23 azelastine 205.5 mcg (0.15 %) 2 spray intranasal BID PRN Allergy 10/18/22 01/14/23 nasal spray Symptoms omeprazole 40 mg capsule,delayed 40 mg PO DAILY 01/14/23 01/14/23 release triamcinolone acetonide 0.1 % 1 applic topical BID 01/14/23 01/14/23 topical ointment Allergies Allergy/AdvReac Type Severity Reaction Status Date / Time lisinopril Allergy Intermediate Difficulty Verified 01/07/23 15:21 Breathing Review of Systems Review of Systems: All systems reviewed & are unremarkable except as noted in HPI and below PMFSH Past Medical History Medical History CAD (coronary artery disease) Cholecystitis with cholelithiasis Erosive gastritis Essential (primary) hypertension Hypothyroidism Obesity Titubation Type 2 diabetes mellitus Surgical History Surgical History Hx of cholecystectomy S/P CABG (coronary artery bypass graft) S/P rotator cuff repair Total knee replacement status Family History Family History Sibling Patient's sister is in good health Family history of diabetes mellitus in first degree relative Patient's brother is in good health Father Family history of diabetes mellitus in first degree relative Patient's father is Mother Patient's mother is Social History Social History Social History: The patient is and has 3 children. The patient is retired from [employer]. She has never smoked. She does not use any alcohol marijuana or illicit drugs. Her children on the durable power workers compensation defense attorney for healthcare. Code status full code Smoking status: Never sm
[2023-01-13] MEDS: SODIUM CHLORIDE 0.9% IV 1,000 ML 999 ML IV CONT (21:38)
[2023-01-13 21:40] LABS: Basophils Percent Auto 0.6 % (0.2-1.2); Eosinophils Percent Auto 0.8 % (0-4.4); Hematocrit 28.6 % (37.0-47.0); Hemoglobin 9.3 g/dL (12.0-15.0); Immature Granulocyte Absolute 0.02 K/mm3 (0.00-0.031); Immature Granulocyte Percent A 0.4 % (0-0.5); Lymphocytes Absolute Auto 0.84 K/mm3 (0.9-3.2); Lymphocytes Percent Auto 16.1 % (18.3-44.2); Mean Corpuscular HGB Conc 32.5 g/dl (32-36); Mean Corpuscular Hemoglobin 29.9 pg (26-34); Mean Platelet Volume 11.4 fl (7.4-10.4); Monocytes Absolute Auto 0.6 K/mm3 (0.1-0.6); Monocytes Percent Auto 10.6 % (2.6-8.5); Neutrophils Absolute Auto 3.7 K/mm3 (1.3-6.7); Neutrophils Percent Auto 71.5 % (45.5-73.1); Platelet Count Result 144 k/mm3 (150-375); Red Blood Count 3.11 M/mm3 (4.2-5.4); Red Cell Distribution Width 14.8 % (11.5-14.5); White Blood Count 5.2 K/mm3 (4.5-10.0)
[2023-01-13 21:51] LABS: INR 1.1
[2023-01-13 21:52] LABS: Partial Thromboplastin Time 40.5 SECONDS (22.3-36.8)
[2023-01-13 22:03] VITALS: BP 162/58; PULSE 43; RESP 19; O2SAT 97
[2023-01-13 22:05] LABS: Alanine Aminotransferase 26 U/L (6-35); Albumin Level 3.8 g/dL (3.5-5.1); Alkaline Phosphatase 128 U/L (38-126); Anion Gap 5 mmol/L (8-16); Aspartate Amino Transferase 26 U/L (14-36); Bilirubin,Total 0.5 mg/dL (0.2-1.3); Blood Urea Nitrogen 27 mg/dL (7-17); Calcium 9.5 mg/dL (8.4-10.2); Carbon Dioxide 29 mmol/L (22-30); Chloride 106 mmol/L (98-107); Estimated CRCL calculation 36 ml/min; Estimated Glomerular Filt Rate 48; Glucose 114 mg/dL (65-110); Sodium 140 mmol/L (137-145)
[2023-01-13 22:10] LABS: NT Pro B Type Natriuretic Pept 2710 pg/mL (19.9-100); Troponin I < 0.012 ng/mL (0.000-0.034)
[2023-01-13 22:15] LABS: Influenza A QL RT-PCR Negative (Negative); Influenza B QL RT-PCR Negative (Negative); RSV RNA, RT-PCR Negative (Negative); SARS-CoV-2 RNA PCR Negative
[2023-01-13 22:46] VITALS: BP 158/56; PULSE 44; RESP 12; O2SAT 95
--- NOTE | 2023-01-13 23:05 | PM.IMHP ---
H&P: HPI History of Present Illness Date/Time: 01/13/23 23:05 Chief Complaint: Recurrent falls Narrative: This is an 82-year-old female with past medical history significant for hypertension, hypothyroidism, GERD, coronary artery disease, obesity, coronary artery bypass graft. Patient presents to the emergency room due to recurrent falls as well as tingling sensation on of the limbs and face patient denies any shortness of breath cough sputum production fevers rigors or chills describes headache no vision changes no chest pain, no PND, no orthopnea has bilateral lower extremity swelling. Preliminary workup was significant for brain natriuretic peptide upwards 1999, a chest x-ray was reported as: IMPRESSION: Migrating sternotomy wire fragments, which can be a source of pain. Pulmonary opacities may represent mild pulmonary edema in the appropriate clinical context. Patient also was noted to be bradycardic on telemetry in emergency room Review of Systems Review of Systems: Recurrent falls, generalized weakness, numbness tingling sensation, PMFSH Past Medical History Medical History (Updated 01/14/23 @ 03:15 by Reinaldo Casillas MD) CAD (coronary artery disease) Cholecystitis with cholelithiasis Erosive gastritis Essential (primary) hypertension Hypothyroidism Obesity Titubation Type 2 diabetes mellitus Surgical History Surgical History (Updated 01/14/23 @ 03:15 by Reinaldo Casillas MD) Hx of cholecystectomy S/P CABG (coronary artery bypass graft) S/P rotator cuff repair Total knee replacement status Family History Family History Sibling Patient's sister is in good health Family history of diabetes mellitus in first degree relative Patient's brother is in good health Father Family history of diabetes mellitus in first degree relative Patient's father is Mother Patient's mother is Social History Social History Social History: The patient is and has 3 children. The patient is retired from [employer]. She has never smoked. She does not use any alcohol marijuana or illicit drugs. Her children on the durable power litigation attorney associate for healthcare. Code status full code Smoking status: Never smoker Second hand tobacco smoke exposure: No Alcohol intake: current Drinks per week: 1 Alcohol use details: socially Substance use: never Substance use type: does not use Lack of Transportation: No Lack of Food: Never True Current Housing: I Have Housing Concerned About Future Housing: No Difficulty Paying Gas/Electric Bills: No Difficulty Paying for Meds: No Currently Unemployed: No Education: High School Diploma/GED Difficulty w/ Childcare or Family Care: No Living arrangements: with family Spiritual care concerns: No Meds Home Medications and Allergies Home Medications Medication Instructions Recorded Confirmed Type aspirin 81 mg tablet,delayed 81 mg PO HS 03/26/20 01/07/23 History release (Adult Low Dose Aspirin) atorvastatin 20 mg tablet 20 mg PO DAILY 03/26/20 01/07/23 History hydralazine 25 mg tablet 25 mg PO BID 03/26/20 01/07/23 History lancets (Microlet Lancet) #50 ea 03/26/20 01/07/23 History losartan 25 mg tablet 25 mg PO DAILY 03/26/20 01/07/23 History metoprolol tartrate 25 mg tablet 12.5 mg PO BID 03/26/20 01/07/23 History blood sugar diagnostic (Blood #100 ea 11/12/20 01/07/23 Rx Glucose Test strips) fluticasone propionate 50 2 spray intranasal DAILY PRN 12/26/20 01/07/23 Rx mcg/actuation nasal allergy symptoms #15.8 mL spray,suspension cholecalciferol (vitamin D3) 50 50 mcg PO DAILY 10/17/21 01/07/23 History mcg (2,000 unit) tablet (Vitamin D3) clopidogrel 75 mg tablet 75 mg PO DAILY 10/17/21 01/07/23 History furosemide 40 mg tablet 40 mg PO DAILY 10/17/21 01/07/23 History biju
[2023-01-13 23:31] VITALS: BP 150/57; PULSE 39; RESP 18; O2SAT 93
[2023-01-13 23:46] VITALS: BP 151/61; PULSE 41; RESP 10; O2SAT 95
[2023-01-14] VITALS (16 sets, daily range): BP systolic 125–181; BP diastolic 45–74; PULSE 39–79; RESP 14–20; TEMP 35.3–37; O2SAT 95–100
--- NOTE | 2023-01-14 | ECHO_ITS ---
Patient Info Name: Leila Baugh Age: 82 years : 1940 Gender: Female Ht: 61 in Wt: 190 lbs BSA: 1.97 m2 HR: 46 bpm BP: 125 / 73 mmHg Heart Rhythm: Sinus Rhythm, Bradycardia Technical Quality: Good Exam Date: 01/14/2023 11:15 AM Exam Location: [facility]am Room: [facility]– [place][note 2] Patient Status: Inpatient Admit Date: 01/13/2023 Staff Ordering Physician: Jaime Sargent MD Perpetual Inventory Clerk: Amrita Cheung RDCS Attending Provider: Reinaldo Casillas MD Exam Type: CA echo doppler color flow Study Info Indications - bradycardia syncope Complete two-dimensional, color flow and Doppler transthoracic echocardiogram is performed. Summary 1. Complete two-dimensional, color flow and Doppler transthoracic echocardiogram is performed. 2. Left ventricular chamber dimension is normal. 3. Left ventricular systolic function is normal, estimated at 60-65%. 4. There is no increased left ventricular wall thickness. 5. The left ventricular diastolic function is grade II diastolic dysfunction. 6. Left atrial chamber dimension is severely enlarged. 7. Right atrial chamber dimension is moderately enlarged. 8. There is no aortic valve stenosis. 9. There is mild mitral valve regurgitation. 10. There is mild to moderate tricuspid valve regurgitation. 11. Severe pulmonary hypertension, estimated pulmonary arterial systolic pressure is 63 mmHg. 12. Dilated inferior vena cava with <50% collapse upon inspiration consistent with elevated right atrial pressure, 10 mmHg. Left Ventricle Left ventricular chamber dimension is normal. Left ventricular systolic function is normal, estimated at 60-65%. There is no increased left ventricular wall thickness. The left ventricular diastolic function is grade II diastolic dysfunction. Right Ventricle Right ventricular chamber dimension is normal. Prominent moderator band. Right ventricular systolic function is normal. Left Atria Left atrial chamber dimension is severely enlarged. Right Atria Right atrial chamber dimension is moderately enlarged. Aortic Valve The aortic valve is probable trileaflet. There is mild aortic valve sclerosis. There is no aortic valve stenosis. There is no aortic valve regurgitation. Pulmonic Valve The pulmonic valve is normal. There is mild to moderate pulmonic regurgitation. Mitral Valve The mitral valve has thickened leaflets. There is mild mitral valve regurgitation. The mitral valve annulus is moderately calcified. Tricuspid Valve The tricuspid valve leaflets are normal. There is mild to moderate tricuspid valve regurgitation. Severe pulmonary hypertension, estimated pulmonary arterial systolic pressure is 63 mmHg. Pericardium/Pleural The pericardium appears normal. There is no pericardial effusion. Inferior Vena Cava Dilated inferior vena cava with <50% collapse upon inspiration consistent with elevated right atrial pressure, 10 mmHg. Aorta The aortic root size at the sinus of Valsalva is normal. There is mild-moderate aortic atherosclerosis. Left Ventricular Outflow Tract Name Value Normal LVOT 2D LVOT Diameter 2.0 cm LVOT Doppler
[2023-01-14 00:51] LABS: Appearance Urine Clear (Clear); Bacteria Urine None Seen /hpf; Bilirubin Urine Negative (Negative); Blood Urine Negative (Negative); Color Urine Yellow (Yellow); Glucose Urine UA Negative (Negative); Ketones Urine Negative (Negative); Leukocyte Esterase Ur Negative LEU/UL (Negative); Nitrate Urine Negative (Negative); Non Pathogenic Casts 0-2; Protein Urine 3+ mg/dL (Negative); RBC Urine 0-2 /hpf (0-2); Specific Grav Ur 1.012 (1.001-1.035); Squamous Epithelial Cell Urine None seen /hpf (Few); Urobilinogen Urine 0.2 mg/dL (<2.0); WBC Urine 0-5 /hpf; pH Urine 6.5 (5.0-9.0)
[2023-01-14 00:53] LABS: Troponin I < 0.012 ng/mL (0.000-0.034)
[2023-01-14 00:56] LABS: Add Urine Microscopic? YES
--- NOTE | 2023-01-14 01:01 | PC.NURSE ---
0100 attempted to call report. BREANA Smith currently tied up in a room.
--- NOTE | 2023-01-14 01:55 | ADMGEN ---
This patient, Leila Baugh, was admitted to Medical Room 342-01. Patient/family oriented to hospital policies and general routines including ID bracelet, bed and alarms, visiting hours, pain management, procedures, bathroom and other care routines, personal items, smoking policy, room service/diet, and visiting hours. Information on how to activate the Rapid Response Team has been discussed. Patient/Family are encouraged to report perceived risks to care and to ask questions if they do not understand what they are told or what they should do.
[2023-01-14 01:56] LABS: Glucose Point of Care 82 mg/dl (65-105)
[2023-01-14 05:44] LABS: Troponin I < 0.012 ng/mL (0.000-0.034)
[2023-01-14] MEDS: ACETAMINOPHEN 500 MG TABLET 1000 MG PO (06:40)
--- NOTE | 2023-01-14 13:47 | PCPTNOTE ---
Per hospitalist, hold PT evaluation for today due to low HR. Will follow.
--- NOTE | 2023-01-14 14:32 | PM.IMPN ---
Progress Note: A&P Assessment and Plan (1) Sinus bradycardia: Code(s): R00.1 - Bradycardia, unspecified Status: Acute Assessment and Plan: Will continue to monitor Admit to [facility] telemetry Cardiology consult Avoid beta-blockers Avoid calcium channel raegan SINUS BRADYCARDIA WITH SINUS ARRHYTHMIA WITH FIRST DEGREE AV BLOCK POSSIBLE RIGHT VENTRICULAR HYPERTROPHY [SOME/ALL OF: PROMINENT R IN V1, LATE TRANSITION, RAD, TAMELA, SSS] INFERIOR MYOCARDIAL INFARCTION , OF INDETERMINATE AGE [40+ ms Q WAVE AND/OR ST/T ABNORMALITY IN II/aVF] NO PREVIOUS ECG AVAILABLE FOR COMPARISO 01/14/2023 interval history: 82-year-old female with history of coronary artery disease status post CABG presented with a syncopal episode patient states there were no prodrome she just fell, patient states she was on the ground for 30 minutes before sick call for help, call for help, however upon arrival EKG showed sinus bradycardia suspect her syncopal episode may be related to bradycardia, will consult web production designer, do cardiac echo and further recommendation to follow, will transfer the patient to IMU. patient daughter is present in the room and answered all her questions. (2) Recurrent falls while walking: Code(s): R29.6 - Repeated falls Status: Acute Assessment and Plan: PT OT consult (3) TIA (transient ischemic attack): Code(s): G45.9 - Transient cerebral ischemic attack, unspecified Status: Acute Assessment and Plan: Patient noted to be bradycardic which could be potentially contributing to these subjective feelings Physical exam no findings CT of the head reported as: FINDINGS: No acute intracranial hemorrhage or extra-axial fluid collection. No hydrocephalus, mass, or herniation. No acute ischemic infarct. Unremarkable dural venous sinus attenuation. No acute osseous abnormality. The? aerated spaces are clear. Right frontal scalp contusion/hematoma, near the vertex. Mild atrophy and chronic white matter change. Atherosclerotic intracranial calcification. Bilateral lens replacements. IMPRESSION:? No acute intracranial process. (4) CAD (coronary artery disease): Code(s): I25.10 - Atherosclerotic heart disease of [place] coronary artery without angina pectoris Status: Chronic Assessment and Plan: Chest pain-free Status post coronary artery bypass grafting (5) Type 2 diabetes mellitus: Code(s): E11.9 - Type 2 diabetes mellitus without complications Status: Acute Assessment and Plan: Patient is on metformin at home (6) PAD (peripheral artery disease): Code(s): I73.9 - Peripheral vascular disease, unspecified Status: Chronic Assessment and Plan: Unchanged (7) Essential (primary) hypertension: Code(s): I10 - Essential (primary) hypertension Status: Chronic Assessment and Plan: Unchanged (8) Obesity (BMI 30-39.9): Code(s): E66.9 - Obesity, unspecified Status: Acute Assessment and Plan: Carb consistent diet (9) Spinal stenosis, unspecified region other than cervical: Code(s): M48.00 - Spinal stenosis, site unspecified Status: Acute Assessment and Plan: Unchanged (10) S/P CABG (coronary artery bypass graft): Code(s): Z95.1 - Presence of aortocoronary bypass graft Status: Acute Assessment and Plan: Unchanged (11) Gastro-esophageal reflux disease without esophagitis: Code(s): K21.9 - Gastro-esophageal reflux disease without esophagitis Status: Acute Assessment and Plan: PPI Subjective Date/time seen: 01/14/23 14:32 Recurrent falls Narrative: This is an 82-year-old female with past medical history significant for hypertension, hypothyroidism, GERD, coronary artery disease, obesity, coronary artery bypass graft.? Patient presents to the emergency room due to recurrent falls as well as tingling sensation on of the limbs and face pat
--- NOTE | 2023-01-14 14:43 | PM.CNCAR ---
Assessment and Plan Assessment and plan (1) Sinus bradycardia: Code(s): R00.1 - Bradycardia, unspecified Status: Acute Assessment and Plan: patient remains bradycardic and potentially symptomatic with recurrent falls and generalized weakness. Evaluate for treatable reversible causes. Check TSH. Metoprolol has been on hold now nearly 48 hours. No significant or consistent hypotension noted. Check orthostatic vital signs. Electrolytes stable. Discussed with patient and her daughter at length she likely may require permanent pacemaker implantation but need to washout metoprolol for Another 24 hours and observe any change in this regard. explained very additional contributions to weakness and falls be on bradycardia need to establish chronic contributors. If she remains unacceptably bradycardic with poor chronotropic response may plan for permanent pacemaker implantation prior to discharge. Patient clearly has underlying sick sinus syndrome with first-degree AV block incomplete right bundle-branch block but without high-grade AV blocks or prolonged pauses thus far. Continue telemetry. Avoid all AV idalia blocking agents particular metoprolol. Apnea link overnight. Check TSH monitor renal function electrolytes closely. Follow H&H. (2) CAD (coronary artery disease): Code(s): I25.10 - Atherosclerotic heart disease of [place] coronary artery without angina pectoris Status: Chronic Assessment and Plan: patient had been maintained on dual antiplatelet therapy as an outpatient. May be able to simplify further Cindy clopidogrel over aspirin history of gastric ulcer. Continue atorvastatin atherosclerotic risk reduction. Goal LDL less than 70. Avoid all AV idalia blocking agents particular metoprolol. (3) Recurrent falls while walking: Code(s): R29.6 - Repeated falls Status: Acute Assessment and Plan: As above. PT OT evaluation. Explained likely multifactorial contribution to fall risk,, need to exclude other treatable secondary reversible causes to contribute persistent bradycardia to weakness and falls. No high-grade AV blocks or prolonged pauses noted thus far. DVT prophylaxis. (4) Essential (primary) hypertension: Code(s): I10 - Essential (primary) hypertension Status: Chronic Assessment and Plan: Stable, she remains hypertensive. Check orthostatic vital signs. Hydralazine and losartan have been held since admission. (5) Anemia: Code(s): D64.9 - Anemia, unspecified Status: Acute Assessment and Plan: Worsen from July 2022 but stable from October with mild decline. Monitor for bleeding, workup underway. Mild thrombocytopenia. Monitor platelet count. (6) Type 2 diabetes mellitus: Code(s): E11.9 - Type 2 diabetes mellitus without complications Status: Acute Assessment and Plan: Diabetes management per primary service. (7) S/P CABG (coronary artery bypass graft): Code(s): Z95.1 - Presence of aortocoronary bypass graft Status: Acute Assessment and Plan: As above. No anginal symptoms. History of 3 vessel with only MACIAS to LAD remaining on left heart catheterization 2018 per outpatient cardiovascular records. History of Present Illness History of Present Illness Consult date/time: Date of service:01/14/23 14:43 Requesting physician: Jaime Sargent MD Consult reason: Other ( Bradycardia) Reason For Visit: TIA Narrative: patient is a very pleasant 82-year-old female with past medical history single for prior CABG Three vessel 2010 with patent MACIAS to LAD noted on left heart catheterization 07/06/2019, hypertension, hyperlipidemia, type 2 diabetes mellitus, obesity, history of LUCIANA no longer on CPAP, hypothyroidism, history of bleeding gastric ulcer presented emergency department with complaints of generalized weakness and recurrent falls without syncope. patient's da
[2023-01-14] MEDS: ACETAMINOPHEN 325 MG TABLET 650 MG PO (16:38)
[2023-01-14] MEDS: oxyBUTYnin CHLORIDE 5 MG TABLET PO (16:41)
[2023-01-14 17:13] LABS: Glucose Point of Care 171 mg/dl (65-105)
[2023-01-14] MEDS: TRIAMCINOLONE ACET 0.1% OINT 15 GM TUBE 1 APPLIC TOPICAL (18:26)
[2023-01-14] MEDS: ASPIRIN 81 MG ENTERIC TABLET PO (20:52)
[2023-01-15] VITALS (18 sets, daily range): BP systolic 136–181; BP diastolic 48–84; PULSE 48–70; RESP 11–22; TEMP 36–36.6; O2SAT 22–100
[2023-01-15] MEDS: ACETAMINOPHEN 325 MG TABLET 650 MG PO (00:19)
[2023-01-15] MEDS: LEVOTHYROXINE SODIUM 112 MCG TABLET PO (06:17)
[2023-01-15 08:08] LABS: Glucose Point of Care 83 mg/dl (65-105)
[2023-01-15] MEDS: oxyBUTYnin CHLORIDE 5 MG TABLET PO ×2 (08:13→20:01)
[2023-01-15] MEDS: TRIAMCINOLONE ACET 0.1% OINT 15 GM TUBE 1 APPLIC TOPICAL (08:13)
[2023-01-15] MEDS: allopurinoL 100 MG TABLET PO (08:14)
[2023-01-15] MEDS: ATORVASTATIN 20 MG TABLET PO (08:14)
[2023-01-15] MEDS: LOSARTAN POTASSIUM 25 MG TABLET PO (08:14)
[2023-01-15] MEDS: CLOPIDOGREL BISULFATE 75 MG TABLET PO (08:14)
[2023-01-15] MEDS: CHOLECALCIFEROL 1,000 UNITS TABLET 2000 UNITS PO (08:14)
[2023-01-15] MEDS: PANTOPRAZOLE 40 MG TABLET PO (08:14)
--- NOTE | 2023-01-15 10:26 | PM.PNCARD ---
Progress Note: A&P Assessment and Plan (1) Sinus bradycardia: Code(s): R00.1 - Bradycardia, unspecified Status: Acute Assessment and Plan: -Continue telemetry for now. -EF preserved by echocardiogram personally reviewed. Severe pulmonary hypertension RVSP 63 mm Hg noted, however. - She remains in sinus rhythm without prolonged pauses or high-grade AV blocks. Heart rate improved now day 3 off metoprolol sleeping heart rate in the 40s generally 50s to 70s. Patient does not require permanent pacemaker implantation at this moment. However, given concern for underlying infection dorsum of right foot and suspicion for underlying abscess even if permanent pacemaker implantation were felt necessary at this juncture must be deferred till this infectious concern has been addressed. she is hemodynamically stable in this regard. Will continue to monitor clinically. Avoid all AV idalia blocking agents. The patient maintains in this regard pacemaker may be deferred even as an outpatient to follow up with her therapy assistant for further management decisions. -Will continue to follow for the time being. (2) CAD (coronary artery disease): Code(s): I25.10 - Atherosclerotic heart disease of [place] coronary artery without angina pectoris Status: Chronic Assessment and Plan: patient had been maintained on dual antiplatelet therapy as an outpatient. May be able to simplify further Cindy clopidogrel over aspirin history of gastric ulcer. Continue atorvastatin atherosclerotic risk reduction. Goal LDL less than 70. Avoid all AV idalia blocking agents particular metoprolol. (3) Recurrent falls while walking: Code(s): R29.6 - Repeated falls Status: Acute Assessment and Plan: As above. PT OT evaluation. Explained likely multifactorial contribution to fall risk,, need to exclude other treatable secondary reversible causes to contribute persistent bradycardia to weakness and falls. No high-grade AV blocks or prolonged pauses noted thus far. DVT prophylaxis. (4) Foot pain: Code(s): M79.673 - Pain in unspecified foot Status: Acute Assessment and Plan: appearance consistent with infection and concern for underlying abscess with warmth, tenderness, swelling and blanching. This must be dealt with more definitively either with drainage and ongoing antibiotics with appropriate wound care prior to any consideration for device therapy or invasive procedure. At this time patient is stable and does not require pacemaker at this very moment. Will defer to primary service, consider surgical consultation. (5) Essential (primary) hypertension: Code(s): I10 - Essential (primary) hypertension Status: Chronic Assessment and Plan: Stable, she remains hypertensive. Check orthostatic vital signs. Hydralazine and losartan have been held since admission. (6) Anemia: Code(s): D64.9 - Anemia, unspecified Status: Acute Assessment and Plan: Worsen from July 2022 but stable from October with mild decline. Monitor for bleeding, workup underway. Mild thrombocytopenia. Monitor platelet count. (7) Type 2 diabetes mellitus: Code(s): E11.9 - Type 2 diabetes mellitus without complications Status: Acute Assessment and Plan: Diabetes management per primary service. (8) S/P CABG (coronary artery bypass graft): Code(s): Z95.1 - Presence of aortocoronary bypass graft Status: Acute Assessment and Plan: As above. No anginal symptoms. History of 3 vessel with only MACIAS to LAD remaining on left heart catheterization 2019 per outpatient cardiovascular records. Subjective Date/time seen: Date of service:01/15/23 10:26 Follow-up for bradycardia, falls patient denies chest pain shortness of breath. She states she still feels tired. No dizziness or falls. Remains in sinus rhythm out prolonged pauses or high-grade AV bl
--- NOTE | 2023-01-15 12:03 | PM.CNGS ---
Assessment and Plan Assessment and plan (1) Abscess of right foot excluding toes: Code(s): L02.611 - Cutaneous abscess of right foot Status: Acute Assessment and Plan: will proceed with incision and drainage under anesthesia later today in the operating room. I discussed the procedure with the patient. She agrees to proceed. Will make her NPO and add her on for this afternoon. (2) Antiplatelet or antithrombotic long-term use: Code(s): Z79.02 - custodial (current) use of antithrombotics/antiplatelets Status: Acute Assessment and Plan: Should be okay for minor superficial incision and drainage procedure (3) Recurrent falls while walking: Code(s): R29.6 - Repeated falls Status: Chronic (4) Sinus bradycardia: Code(s): R00.1 - Bradycardia, unspecified Status: Chronic (5) S/P CABG (coronary artery bypass graft): Code(s): Z95.1 - Presence of aortocoronary bypass graft Status: Chronic History of Present Illness Consult details Consult date: 01/15/23 Reason for consult: other ( right foot abscess) Requesting physician: Jaime Sargent MD Narrative: patient is an 82-year-old woman who was admitted 2 days ago with history of falls, bradycardia, pulmonary edema. She was also noted to have an injury to the instep of her right foot. She has been evaluated by Cardiology and the hospitalist group. Her beta-raegan was stopped and apparently she does not need a pacemaker at this time. Her CT scan of the head did not show an acute process. I was asked to see her as her injury to the right foot has gotten more swollen and is now fluctuant. She reports that about 2 weeks ago, her 3-year-old grandson was running and stepped on the foot. Later that day, for mobile phone fell and landed in the same area. She has had soreness to the area since then but it has gotten worse in the last couple of days. She has not had a fever and her white blood cell count is normal. She is an insulin-dependent diabetic. Plain films of the right foot from earlier today shows swelling over the dorsum of the foot and osteoarthritis. She is seen now in consultation. She does take clopidogrel which has been continued since admission. Review of Systems Review of Systems: All systems reviewed & are unremarkable except as noted in HPI and below ( HPI and those items noted below) Constitutional: Constitutional: Denies chills and Denies fever(s) Cardiovascular: Cardiovascular: Denies chest pain, Denies diaphoresis, Denies dyspnea and Denies paroxysmal nocturnal dyspnea Respiratory: Respiratory: Denies chest congestion, Denies cough and Denies dyspnea Integumentary/Breasts: Skin/Breast: Denies lesions and Denies rash [facility] Past Medical History Medical History CAD (coronary artery disease) Cholecystitis with cholelithiasis Erosive gastritis Essential (primary) hypertension Hypothyroidism Obesity Titubation Type 2 diabetes mellitus Surgical History Surgical History Hx of cholecystectomy S/P CABG (coronary artery bypass graft) S/P rotator cuff repair Total knee replacement status Family History Family History Sibling Patient's sister is in good health Family history of diabetes mellitus in first degree relative Patient's brother is in good health Father Family history of diabetes mellitus in first degree relative Patient's father is Mother Patient's mother is Social History Social History Social History: The patient is and has 3 children. The patient is retired from [employer]. She has never smoked. She does not use any alcohol marijuana or illicit drugs. Her children on the durable power provider scribe for healthcare.
[2023-01-15 12:53] LABS: Glucose Point of Care 114 mg/dl (65-105)
--- NOTE | 2023-01-15 14:36 | WPDANESEPPF ---
Anes - Initial Pre Proc Eval Procedure: Operation Date: 01/15/23 16:00 Proposed Procedures p Incision and Drainage Superficial Right Foot Abcess - Jarad Linaers MD Date/Time: 01/15/23 14:36 Surgeon: Reinaldo Casillas MD Pre Op Diagnosis: TIA Patient Data Age: 82 Gender: F Height: 1.55 m Weight: 86.3 kg Last Vital Signs Temp 36.0 C L 01/15/23 12:00 Pulse 52 L 01/15/23 12:00 Resp 22 H 01/15/23 12:00 BP 181/74 H 01/15/23 12:00 Pulse Ox 22 L 01/15/23 12:00 O2 Del Method Room Air 01/15/23 12:00 Allergies Allergy/AdvReac Type Severity Reaction Status Date / Time lisinopril Allergy Intermediate Difficulty Verified 01/07/23 15:21 Breathing Home Medications Medication Instructions Recorded Confirmed Type aspirin 81 mg tablet,delayed 81 mg PO HS 03/26/20 01/14/23 History release (Adult Low Dose Aspirin) atorvastatin 20 mg tablet 20 mg PO DAILY 03/26/20 01/14/23 History hydralazine 25 mg tablet 25 mg PO BID 03/26/20 01/14/23 History lancets (Microlet Lancet) #50 ea 03/26/20 01/07/23 History losartan 25 mg tablet 25 mg PO DAILY 03/26/20 01/14/23 History metoprolol tartrate 25 mg tablet 12.5 mg PO BID 03/26/20 01/14/23 History blood sugar diagnostic (Blood #100 ea 11/12/20 01/07/23 Rx Glucose Test strips) cholecalciferol (vitamin D3) 50 50 mcg PO DAILY 10/17/21 01/14/23 History mcg (2,000 unit) tablet (Vitamin D3) clopidogrel 75 mg tablet 75 mg PO DAILY 10/17/21 01/14/23 History furosemide 40 mg tablet 40 mg PO DAILY 10/17/21 01/14/23 History lancets 33 gauge (OneTouch Delica #100 ea 04/08/22 01/07/23 Rx Lancets) azelastine 205.5 mcg (0.15 %) 2 spray intranasal BID PRN Allergy 10/18/22 01/14/23 History nasal spray Symptoms allopurinol 100 mg tablet 100 mg PO DAILY@0800 #30 tabs 10/22/22 01/14/23 Rx metformin 500 mg tablet 500 mg PO BID #180 tabs 11/03/22 01/14/23 Rx oxybutynin chloride 5 mg tablet 5 mg PO BID #60 tabs 12/23/22 01/14/23 Rx levothyroxine 112 mcg tablet 112 mcg PO DAILY #90 tabs 12/25/22 01/14/23 Rx blood sugar diagnostic (OneTouch #100 ea 01/01/23 01/07/23 Rx Ultra Test strips) omeprazole 40 mg capsule,delayed 40 mg PO DAILY 01/14/23 01/14/23 History release triamcinolone acetonide 0.1 % 1 applic topical BID 01/14/23 01/14/23 History topical ointment Laboratory Tests 01/14/23 01/15/23 01/15/23 17:11 06:57 07:54 POC Capillary Glucose 171 mg/dl H mg/dl 83 mg/dl mg/dl (65-105) (65-105) TSH (Reflex) 1.740 uIU/mL uIU/mL (0.465-4.68) 01/15/23 12:45 POC Capillary Glucose 114 mg/dl H mg/dl (65-105) TSH (Reflex) Patient hx anesthesia problems: none Family hx anesthesia problems: none Results Review: All pre-operative results and documents have been reviewed as part of the pre-operative evaluation. [facility] Past Medical History Medical History CAD (coronary artery disease) Cholecystitis with cholelithiasis Erosive gastritis Essential (primary) hypertension Hypothyroidism Obesity Titubation Type 2 diabetes mellitus Surgical History Surgical History Hx of cholecystectomy S/P CABG (coronary artery bypass graft) S/P rotator cuff repair Total knee replacement status Family History Family History Sibling Patient's sister is in good health Family history of diabetes mellitus in first degree relative Patient's brother is in good health Father Family history of diabetes mellitus in first degree relative Patient's father is Mother Patient's mother is Social History Social History Social History: The patient is and has 3 children. The patient is retired from [employer]. She has never smoked. She does not use any alcohol marijua
[2023-01-15] MEDS: LACTATED RINGERS 1,000 ML 30 ML IV CONT (15:00)
[2023-01-15 15:18] LABS: Glucose Point of Care 92 mg/dl (65-105)
--- NOTE | 2023-01-15 15:18 | WPDHPUPDATE1 ---
History and Physical Update Update Date/Time: 01/15/23 15:18 History and Physical has been reviewed, including an updated exam of the patient. There are NO changes in the patient's condition. Risks, benefits, and alternatives have been discussed and questions answered. Patient agrees to proceed with procedure.
[2023-01-15] MEDS: ceFAZolin 2 GM/D5W 50 ML 2 GM/50 ML BAG IVPB (15:42)
[2023-01-15] MEDS: LIDOCAINE 1% BUFFERED WITH 8.4% SODIUM BICARB 1 ML SYRINGE 10 ML INFILTRATE (16:09)
--- NOTE | 2023-01-15 16:25 | P.OP_ITS ---
Procedure Note - Detailed Date of Procedure 01/15/23 Pre-op Diagnosis Right foot abscess Post-op Diagnosis Same Procedure Performed Incision and drainage complex right foot abscess Surgeon Jarad Linares MD Decorative Engraver Yelena Gould [facility] Anesthesia General and Local (1% lidocaine plain) Indications Patient suffered injuries to the instep of her right foot about 2 weeks ago. She was admitted to the hospital with falls, pulmonary edema, bradycardia. She does take Plavix. The for right foot was swelling and became fluctuant. It was quite red and peer to be an abscess. Plain films did not show osteomyelitis. She is taken to surgery now for incision and drainage. Findings Patient had an infected hematoma. Cultures were taken Description of Procedure Patient was taken to surgery and induced into general anesthesia. The right foot was prepped and draped. I infiltrated local over the area of the anticipated incision and all around the area of the abscess on the dorsum of the right foot. Incision was made and purulent appearing old blood came forth. Cultures were taken for aerobes anaerobes and Gram stain. I then evacuated as much of the hematoma as I could. We then irrigated the wound thoroughly with warm saline. Once the irrigant was quite clear, we dressed the wound with fluffs and wrapped with Kerlix roll and 4 in Raffy wrap. Patient was then awakened and taken to recovery in good condition. Sponge needle counts were correct x2. Estimated Blood Loss -2 Urine Output 600 Drains No Packing No Pathology Other (Cultures only) Complications No immediate complications Condition Stable Disposition PACU [facility] Billing Surgery - Charge Forward: Surgery Billing (Incision and drainage complex right foot abscess under anesthesia)
[2023-01-15 16:26] LABS: Glucose Point of Care 97 mg/dl (65-105)
[2023-01-15] MEDS: fentaNYL CITRATE INJ (*CRX) 100 MCG/2 ML VIAL 25 MCG IV PUSH ×2 (16:32→16:39)
--- NOTE | 2023-01-15 17:19 | PM.IMPN ---
Progress Note: A&P Assessment and Plan (1) Sinus bradycardia: Code(s): R00.1 - Bradycardia, unspecified Status: Chronic Assessment and Plan: Will continue to monitor Admit to med telemetry Cardiology consult Avoid beta-blockers Avoid calcium channel raegan SINUS BRADYCARDIA WITH SINUS ARRHYTHMIA WITH FIRST DEGREE AV BLOCK POSSIBLE RIGHT VENTRICULAR HYPERTROPHY [SOME/ALL OF: PROMINENT R IN V1, LATE TRANSITION, RAD, TAMELA, SSS] INFERIOR MYOCARDIAL INFARCTION , OF INDETERMINATE AGE [40+ ms Q WAVE AND/OR ST/T ABNORMALITY IN II/aVF] NO PREVIOUS ECG AVAILABLE FOR COMPARISO 01/15/2023 interval history: 82-year-old female with history of coronary artery disease status post CABG presented with a syncopal episode patient stated there were no prodrome she just fell, patient states she was on the ground for 30 minutes before she call for help, however upon arrival EKG showed sinus bradycardia suspect her syncopal episode may be related to bradycardia, seen by apartment groundskeeper held BB and her HR is trending up, will continue to monitor, echo showed preserved LV function with grade 2 diastolic dysfunction, and further recommendation to follow, patient was transferred to IMU. patient also found to cellulitis on right dorsum of the foot patient is seen by surgery service and will have I&D and further recommendation to follow. (2) Recurrent falls while walking: Code(s): R29.6 - Repeated falls Status: Chronic Assessment and Plan: PT OT consult (3) TIA (transient ischemic attack): Code(s): G45.9 - Transient cerebral ischemic attack, unspecified Status: Acute Assessment and Plan: Patient noted to be bradycardic which could be potentially contributing to these subjective feelings Physical exam no findings CT of the head reported as: FINDINGS: No acute intracranial hemorrhage or extra-axial fluid collection. No hydrocephalus, mass, or herniation. No acute ischemic infarct. Unremarkable dural venous sinus attenuation. No acute osseous abnormality. The? aerated spaces are clear. Right frontal scalp contusion/hematoma, near the vertex. Mild atrophy and chronic white matter change. Atherosclerotic intracranial calcification. Bilateral lens replacements. IMPRESSION:? No acute intracranial process. (4) CAD (coronary artery disease): Code(s): I25.10 - Atherosclerotic heart disease of [place] coronary artery without angina pectoris Status: Chronic Assessment and Plan: Chest pain-free Status post coronary artery bypass grafting (5) Type 2 diabetes mellitus: Code(s): E11.9 - Type 2 diabetes mellitus without complications Status: Acute Assessment and Plan: Patient is on metformin at home (6) PAD (peripheral artery disease): Code(s): I73.9 - Peripheral vascular disease, unspecified Status: Chronic Assessment and Plan: Unchanged (7) Essential (primary) hypertension: Code(s): I10 - Essential (primary) hypertension Status: Chronic Assessment and Plan: Unchanged (8) Obesity (BMI 30-39.9): Code(s): E66.9 - Obesity, unspecified Status: Acute Assessment and Plan: Carb consistent diet (9) Spinal stenosis, unspecified region other than cervical: Code(s): M48.00 - Spinal stenosis, site unspecified Status: Acute Assessment and Plan: Unchanged (10) S/P CABG (coronary artery bypass graft): Code(s): Z95.1 - Presence of aortocoronary bypass graft Status: Chronic Assessment and Plan: Unchanged (11) Gastro-esophageal reflux disease without esophagitis: Code(s): K21.9 - Gastro-esophageal reflux disease without esophagitis Status: Acute Assessment and Plan: PPI Subjective Date/time seen: 01/15/23 17:19 01/15/2023 interval history: 82-year-old female with history of coronary artery disease status post CABG presented with a syncopal episode patien
[2023-01-15 18:16] LABS: Glucose Point of Care 103 mg/dl (65-105)
[2023-01-15 19:46] LABS: Glucose Point of Care 143 mg/dl (65-105)
[2023-01-15] MEDS: HYDROcodone/acetaminophen (*CRX) 5-325 MG TABLET 1 TAB PO (19:59)
[2023-01-15] MEDS: ASPIRIN 81 MG ENTERIC TABLET PO (19:59)
[2023-01-16] VITALS (13 sets, daily range): BP systolic 133–166; BP diastolic 40–68; PULSE 45–63; RESP 16–20; TEMP 36–36.6; O2SAT 92–100
[2023-01-16 04:41] LABS: Hemoglobin 8.2 g/dL (12.0-15.0); Immature Platelet Fraction Pct 8.4 % (0.9-11.2); Mean Corpuscular HGB Conc 31.5 g/dl (32-36); Mean Corpuscular Volume 91.9 fl (80-100); Mean Platelet Volume 11.4 fl (7.4-10.4); Platelet Count Result 115 k/mm3 (150-375); Red Blood Count 2.83 M/mm3 (4.2-5.4); Red Cell Distribution Width 14.9 % (11.5-14.5); White Blood Count 5.5 K/mm3 (4.5-10.0)
[2023-01-16 04:55] LABS: Anion Gap 3 mmol/L (8-16); Blood Urea Nitrogen 21 mg/dL (7-17); Calcium 9.2 mg/dL (8.4-10.2); Carbon Dioxide 26 mmol/L (22-30); Chloride 106 mmol/L (98-107); Estimated CRCL calculation 33 ml/min; Estimated Glomerular Filt Rate 43; Glucose 78 mg/dL (65-110); Potassium 4.1 mmol/L (3.4-5.0); Sodium 135 mmol/L (137-145)
[2023-01-16] MEDS: LEVOTHYROXINE SODIUM 112 MCG TABLET PO (06:11)
[2023-01-16] MEDS: HYDROcodone/acetaminophen (*CRX) 5-325 MG TABLET 1 TAB PO ×2 (06:11→12:53)
--- NOTE | 2023-01-16 07:38 | WPDANESPN ---
Anes - Prog Note Post-Op Date/Time: 01/16/23 07:38 Cardiovascular status: normal Respiratory status: normal Airway patency: baseline Mental status: baseline Post-Op hydration status: normal Vital Signs: Last Vital Signs Temp 36.4 C L 01/16/23 04:00 Pulse 63 01/16/23 06:00 Resp 18 01/16/23 04:00 BP 166/41 H 01/16/23 04:00 Pulse Ox 93 01/16/23 04:00 O2 Del Method Room Air 01/16/23 04:00 O2 Flow Rate 2 01/15/23 20:00 Pain Score (VAS): Patient asleep, no nonverbal signs of pain at this time I/O: Intake & Output 01/15/23 01/15/23 01/16/23 15:59 23:59 07:59 Intake Total 580 650 100 Output Total 1600 400 Balance 580 -950 -300 Laboratory Tests 01/16/23 04:33 01/16/23 04:33 01/15/23 01/15/23 01/15/23 06:57 07:54 12:45 WBC RBC Hgb Hct MCV MCH MCHC RDW Plt Count MPV % Immature Plt Fraction Sodium Potassium Chloride Carbon Dioxide Anion Gap BUN Creatinine Estim Creat Clear Calc Estimated GFR Glucose POC Capillary Glucose 83 114 H Calcium TSH (Reflex) 1.740 01/15/23 01/15/23 01/15/23 15:14 16:22 18:14 WBC RBC Hgb Hct MCV MCH MCHC RDW Plt Count MPV % Immature Plt Fraction Sodium Potassium Chloride Carbon Dioxide Anion Gap BUN Creatinine Estim Creat Clear Calc Estimated GFR Glucose POC Capillary Glucose 92 97 103 Calcium TSH (Reflex) 01/15/23 01/16/23 01/16/23 19:43 04:33 04:33 WBC 5.5 RBC 2.83 L Hgb 8.2 L Hct 26.0 L MCV 91.9 MCH 29.0 MCHC 31.5 L RDW 14.9 H Plt Count 115 L MPV 11.4 H % Immature Plt Fraction 8.4 Sodium 135 L Potassium 4.1 Chloride 106 Carbon Dioxide 26 Anion Gap 3 L BUN 21 H Creatinine 1.20 H Estim Creat Clear Calc 33 Estimated GFR 43 L Glucose 78 POC Capillary Glucose 143 H Calcium 9.2 TSH (Reflex) Post-procedural complaints: none Patient Feedback: Patient satisfied with anesthetic care.
[2023-01-16 08:03] LABS: Glucose Point of Care 79 mg/dl (65-105)
[2023-01-16] MEDS: ATORVASTATIN 20 MG TABLET PO (09:05)
[2023-01-16] MEDS: CHOLECALCIFEROL 1,000 UNITS TABLET 2000 UNITS PO (09:05)
[2023-01-16] MEDS: allopurinoL 100 MG TABLET PO (09:05)
[2023-01-16] MEDS: CLOPIDOGREL BISULFATE 75 MG TABLET PO (09:06)
[2023-01-16] MEDS: PANTOPRAZOLE 40 MG TABLET PO (09:06)
[2023-01-16] MEDS: LOSARTAN POTASSIUM 25 MG TABLET PO (09:06)
[2023-01-16] MEDS: oxyBUTYnin CHLORIDE 5 MG TABLET PO ×2 (09:06→20:43)
[2023-01-16] MEDS: TOLNAFTATE 1% POWDER 45 GM BTL 1 APPLIC TOPICAL ×2 (09:07→20:17)
--- NOTE | 2023-01-16 10:35 | ECG_ITS ---
Measurements Intervals [place] Rate: 43 P: 69 MN: 203 QRS: 85 QRSD: 109 T: 17 QT: 489 QTc: 416 Interpretive Statements SINUS BRADYCARDIA BORDERLINE AV CONDUCTION DELAY BASELINE ARTIFACT- V4 ABNORMAL ECG COMPARED TO ECG 01/13/2023 21:22:40 NO SIGNIFICANT CHANGES Electronically Signed On 01-16-2023 11:25:31 DIRECTOR TEEN POST by Tino Hong D.O.
--- NOTE | 2023-01-16 11:26 | PM.PNCARD ---
Progress Note: A&P Assessment and Plan (1) Sinus bradycardia: Code(s): R00.1 - Bradycardia, unspecified Status: Chronic Assessment and Plan: She has sinus bradycardia, improved wit discontinuation of beta raegan Continue telemetry for now. EF preserved by echocardiogram personally reviewed. Severe pulmonary hypertension RVSP 63 mm Hg noted, however. She remains in sinus rhythm without prolonged pauses or high-grade AV blocks. Heart rate improved now day 4 off metoprolol sleeping heart rate in the 40s generally 50s to 70s. No indication for PPM at this time. Avoid all AV idalia blocking agents. Will see her on an as needed basis at this point. (2) CAD (coronary artery disease): Code(s): I25.10 - Atherosclerotic heart disease of [place] coronary artery without angina pectoris Status: Chronic Assessment and Plan: patient had been maintained on dual antiplatelet therapy as an outpatient. May be able to simplify further Cindy clopidogrel over aspirin history of gastric ulcer. Continue atorvastatin atherosclerotic risk reduction. Goal LDL less than 70. Avoid all AV idalia blocking agents particular metoprolol. (3) Recurrent falls while walking: Code(s): R29.6 - Repeated falls Status: Chronic Assessment and Plan: As above. PT OT evaluation. Explained likely multifactorial contribution to fall risk,, need to exclude other treatable secondary reversible causes to contribute persistent bradycardia to weakness and falls. No high-grade AV blocks or prolonged pauses noted thus far. DVT prophylaxis. (4) Foot pain: Code(s): M79.673 - Pain in unspecified foot Status: Acute Assessment and Plan: S/p debridement. Surgery following. (5) Essential (primary) hypertension: Code(s): I10 - Essential (primary) hypertension Status: Chronic Assessment and Plan: Stable, she remains hypertensive. Check orthostatic vital signs. Hydralazine and losartan have been held since admission. (6) Anemia: Code(s): D64.9 - Anemia, unspecified Status: Acute Assessment and Plan: Worsen from July 2022 but stable from October with mild decline. Monitor for bleeding, workup underway. Mild thrombocytopenia. Monitor platelet count. (7) Type 2 diabetes mellitus: Code(s): E11.9 - Type 2 diabetes mellitus without complications Status: Acute Assessment and Plan: Diabetes management per primary service. (8) S/P CABG (coronary artery bypass graft): Code(s): Z95.1 - Presence of aortocoronary bypass graft Status: Chronic Assessment and Plan: As above. No anginal symptoms. History of 3 vessel with only MACIAS to LAD remaining on left heart catheterization 2019 per outpatient cardiovascular records. Subjective Date/time seen: 01/16/23 11:26 Cardiology follow up for bradycardia She is sleeping when I entered the room but awakens to voice. Has no complaints aside from being very tired. Remains in sinus bradycardia on telemetry Review of Systems Review of Systems: All systems reviewed & are unremarkable except as noted in HPI and below Constitutional: Constitutional: Reports as per HPI and Reports no additional constitutional complaints Eyes: Eyes: Reports as per HPI and Reports no additional eye complaints ENT: Reports system reviewed and no additional complaints, except as documented and Reports as per HPI Cardiovascular: Cardiovascular: Reports as per HPI and Reports no additional cardiovascular complaints Respiratory: Respiratory: Reports as per HPI and Reports no additional respiratory complaints Gastrointestinal: Gastrointestinal: Reports as per HPI and Reports no additional gastrointestinal complaints Genitourinary: Genitourinary: Reports as per HPI Musculoskeletal: Musculoskeletal: Reports no additional musculoskeletal complaints and Reports as per HPI Integumentary/
[2023-01-16 11:36] LABS: Glucose Point of Care 114 mg/dl (65-105)
--- NOTE | 2023-01-16 12:02 | PM.PNGS ---
Progress Note: A&P Assessment and Plan (1) Abscess of right foot excluding toes: Code(s): L02.611 - Cutaneous abscess of right foot Status: Acute Assessment and Plan: Appeared to be infected hematoma. Cultures are pending. Looks much better. Wound is clean with no evidence of bleeding. Will start silver gel and gauze dressings daily. If patient is discharged, she can continue these dressings at home and see me in the office in 2 weeks. (2) Antiplatelet or antithrombotic long-term use: Code(s): Z79.02 - medical terminologist (current) use of antithrombotics/antiplatelets Status: Acute Assessment and Plan: Continue Plavix. Subjective Subjective Date/Time Seen: 01/16/23 12:02 Post Op day: 1 Patient reports: no new complaints and afebrile Review of Systems Review of Systems: All systems reviewed & are unremarkable except as noted in HPI and below (HPI) Exam Const: General: cooperative, comfortable, no acute distress, alert and awake Extrem: Right lower extremity: foot (Drainage wound clean, no hematoma or recurrent purulent fluid.) Objective Data Vital Signs Vital Signs: Vital Signs - 24 hr 01/15/23 14:55 01/15/23 16:17 01/15/23 16:30 Temperature 36.1 C L 36.4 C L Pulse Rate 51 L 57 L 53 L Respiratory Rate 18 12 14 Blood Pressure 150/73 H 148/63 H 178/84 H Pulse Oximetry 94 98 97 Oxygen Delivery Room Air Simple Face Mask Simple Face Mask Oxygen Flow Rate 8 8 01/15/23 16:45 01/15/23 14:00 01/15/23 17:00 Temperature Pulse Rate 51 L 54 L 52 L Respiratory Rate 14 11 L Blood Pressure 145/56 H 155/62 H Pulse Oximetry 97 98 Oxygen Delivery Simple Face Mask Nasal Cannula Oxygen Flow Rate 8 3 01/15/23 17:15 01/15/23 17:24 01/15/23 19:49 Temperature 36.1 C L Pulse Rate 51 L 52 L 52 L Respiratory Rate 12 12 16 Blood Pressure 156/68 H 158/77 H 161/48 H Pulse Oximetry 99 99 92 Oxygen Delivery Nasal Cannula Nasal Cannula Oxygen Flow Rate 3 3 01/15/23 20:00 01/15/23 20:00 01/15/23 22:00 Temperature Pulse Rate 51 L 52 L 50 L Respiratory Rate 16 Blood Pressure Pulse Oximetry 92 Oxygen Delivery Nasal Cannula Oxygen Flow Rate 2 01/16/23 00:00 01/16/23 00:00 01/16/23 00:00 Temperature 36.3 C L Pulse Rate 51 L 51 L 57 L Respiratory Rate 16 16 Blood Pressure 145/40 H Pulse Oximetry 92 92 Oxygen Delivery Room Air Oxygen Flow Rate 01/16/23 02:00 01/16/23 04:00 01/16/23 04:00 Temperature Pulse Rate 55 L 52 L 52 L Respiratory Rate 16 Blood Pressure Pulse Oximetry 92 Oxygen Delivery Room Air Oxygen Flow Rate 01/16/23 04:00 01/16/23 06:00 01/16/23 08:00 Temperature 36.4 C L Pulse Rate 58 L 63 Respiratory Rate 18 Blood Pressure 166/41 H Pulse Oximetry 93 92 Oxygen Delivery Room Air Oxygen Flow Rate 01/16/23 08:00 01/16/23 08:00 01/16/23 08:00 Temperature 36.3 C L Pulse Rate 46 L 53 L 53 L Respiratory Rate 18 18 Blood Pressure 166/51 H Pulse Oximetry 99 99 Oxygen Delivery Nasal Cannula Oxygen Flow Rate 2 01/16/23 10:00 01/16/23 11:49 Temperature Pulse Rate 47 L Respiratory Rate Blood Pressure Pulse Oximetry 92 Oxygen Delivery Room Air Oxygen Flow Rate Intake/Output Intake/Output: Intake & Output 01/13/23 01/14/23 01/15/23 01/16/23 23:59 23:59 23:59 23:59 Intake Total 1100 1250 1480 540 Output Total 2200 400 Balance 1100 1250 -720 140 Meds/Results Medications: Active Medications Generic Name Dose Route Start Last Admin Trade Name Freq PRN Reason Stop Dose Admin Acetaminophen 500 mg 01/15/23 17:29 Acetaminophen 500 Mg Tablet PO Q6H PRN Mild Pain (1-3) or Fever Hydrocodone Bitart/Acetaminophen 1 tab 01/15/23 17:29 01/16/23 06:11 Hydrocodone/Acetaminophen (*Crx) 5-325 Mg Tablet PO 1 tab Q4H PRN Administration Pain Rated 4-6 Allopurinol 100 mg 01/15/23 08:00 01/16/23 09:05 Allopurinol 100 Mg
--- NOTE | 2023-01-16 13:05 | PCOTNOTE ---
Attempted to see Patient at this time. Patient verbalized she is having a hard time staying awake, still feels so drowsy. Patient's family in the room and requested to perform therapy services at a another time.
[2023-01-16] MEDS: cefTRIAXone 2 GM in SODIUM CHLORIDE 0.9% IV 100 ML 200 ML IVPB (14:04)
--- NOTE | 2023-01-16 15:08 | PM.IMPN ---
Progress Note: A&P Assessment and Plan (1) Sinus bradycardia: Code(s): R00.1 - Bradycardia, unspecified Status: Chronic Assessment and Plan: Will continue to monitor Admit to [facility] telemetry Cardiology consult Avoid beta-blockers Avoid calcium channel raegan SINUS BRADYCARDIA WITH SINUS ARRHYTHMIA WITH FIRST DEGREE AV BLOCK POSSIBLE RIGHT VENTRICULAR HYPERTROPHY [SOME/ALL OF: PROMINENT R IN V1, LATE TRANSITION, RAD, TAMELA, SSS] INFERIOR MYOCARDIAL INFARCTION , OF INDETERMINATE AGE [40+ ms Q WAVE AND/OR ST/T ABNORMALITY IN II/aVF] NO PREVIOUS ECG AVAILABLE FOR COMPARISO 01/16/2023 interval history: 82-year-old female with history of coronary artery disease status post CABG presented with a syncopal episode patient stated there were no prodrome she just fell, patient states she was on the ground for 30 minutes before she call for help, however upon arrival EKG showed sinus bradycardia suspect her syncopal episode may be related to bradycardia, seen by rescue boat operator held BB and her HR is trending up, will continue to monitor, echo showed preserved LV function with grade 2 diastolic dysfunction, and further recommendation to follow, patient was transferred to IMU. patient also found to cellulitis on right dorsum of the foot patient is seen by surgery service and had I&D surgeon suspect infected hematoma, started patient on ceftriaxone, wlll follow up on wound culture, and further recommendation to follow. (2) Recurrent falls while walking: Code(s): R29.6 - Repeated falls Status: Chronic Assessment and Plan: PT OT consult (3) TIA (transient ischemic attack): Code(s): G45.9 - Transient cerebral ischemic attack, unspecified Status: Acute Assessment and Plan: Patient noted to be bradycardic which could be potentially contributing to these subjective feelings Physical exam no findings CT of the head reported as: FINDINGS: No acute intracranial hemorrhage or extra-axial fluid collection. No hydrocephalus, mass, or herniation. No acute ischemic infarct. Unremarkable dural venous sinus attenuation. No acute osseous abnormality. The? aerated spaces are clear. Right frontal scalp contusion/hematoma, near the vertex. Mild atrophy and chronic white matter change. Atherosclerotic intracranial calcification. Bilateral lens replacements. IMPRESSION:? No acute intracranial process. (4) CAD (coronary artery disease): Code(s): I25.10 - Atherosclerotic heart disease of [place] coronary artery without angina pectoris Status: Chronic Assessment and Plan: Chest pain-free Status post coronary artery bypass grafting (5) Type 2 diabetes mellitus: Code(s): E11.9 - Type 2 diabetes mellitus without complications Status: Acute Assessment and Plan: Patient is on metformin at home (6) PAD (peripheral artery disease): Code(s): I73.9 - Peripheral vascular disease, unspecified Status: Chronic Assessment and Plan: Unchanged (7) Essential (primary) hypertension: Code(s): I10 - Essential (primary) hypertension Status: Chronic Assessment and Plan: Unchanged (8) Obesity (BMI 30-39.9): Code(s): E66.9 - Obesity, unspecified Status: Acute Assessment and Plan: Carb consistent diet (9) Spinal stenosis, unspecified region other than cervical: Code(s): M48.00 - Spinal stenosis, site unspecified Status: Acute Assessment and Plan: Unchanged (10) S/P CABG (coronary artery bypass graft): Code(s): Z95.1 - Presence of aortocoronary bypass graft Status: Chronic Assessment and Plan: Unchanged (11) Gastro-esophageal reflux disease without esophagitis: Code(s): K21.9 - Gastro-esophageal reflux disease without esophagitis Status: Acute Assessment and Plan: PPI Subjective Date/time seen: 01/16/23 15:08 01/16/2023 interval history: 82-year-old female wi
[2023-01-16 17:06] LABS: Glucose Point of Care 104 mg/dl (65-105)
[2023-01-16 19:32] LABS: Glucose Point of Care 110 mg/dl (65-105)
[2023-01-16] MEDS: ASPIRIN 81 MG ENTERIC TABLET PO (20:16)
[2023-01-16] MEDS: TRIAMCINOLONE ACET 0.1% OINT 15 GM TUBE 1 APPLIC TOPICAL (20:18)
[2023-01-16] MEDS: LACTATED RINGERS 1,000 ML 60 ML IV CONT (20:51)
[2023-01-17] VITALS (13 sets, daily range): BP systolic 102–165; BP diastolic 41–47; PULSE 42–63; RESP 12–20; TEMP 36.4–36.8; O2SAT 87–98; BMI 10.0
[2023-01-17] MEDS: LEVOTHYROXINE SODIUM 112 MCG TABLET PO (06:22)
[2023-01-17 07:39] LABS: Glucose Point of Care 82 mg/dl (65-105)
[2023-01-17] MEDS: allopurinoL 100 MG TABLET PO (08:59)
[2023-01-17] MEDS: LOSARTAN POTASSIUM 25 MG TABLET PO (09:00)
[2023-01-17] MEDS: ATORVASTATIN 20 MG TABLET PO (09:00)
[2023-01-17] MEDS: PANTOPRAZOLE 40 MG TABLET PO (09:00)
[2023-01-17] MEDS: CHOLECALCIFEROL 1,000 UNITS TABLET 2000 UNITS PO (09:00)
[2023-01-17] MEDS: oxyBUTYnin CHLORIDE 5 MG TABLET PO ×2 (09:00→16:40)
[2023-01-17] MEDS: SILVERGEL (ELTA) 45 ML 1 APPLIC TOPICAL (09:01)
[2023-01-17] MEDS: TRIAMCINOLONE ACET 0.1% OINT 15 GM TUBE 1 APPLIC TOPICAL ×2 (09:01→16:40)
[2023-01-17] MEDS: TOLNAFTATE 1% POWDER 45 GM BTL 1 APPLIC TOPICAL ×2 (09:01→20:27)
--- NOTE | 2023-01-17 10:06 | PM.PNCARD ---
Progress Note: A&P Assessment and Plan (1) Sinus bradycardia: Code(s): R00.1 - Bradycardia, unspecified Status: Chronic Assessment and Plan: She has sinus bradycardia, improved wit discontinuation of beta raegan Continue telemetry for now. EF preserved by echocardiogram personally reviewed. Severe pulmonary hypertension RVSP 63 mm Hg noted, however. She remains in sinus rhythm without prolonged pauses or high-grade AV blocks. Heart rate improved now day 4 off metoprolol sleeping heart rate in the 40s generally 50s to 70s. No indication for PPM at this time. Continue to avoid AV idalai agents (2) CAD (coronary artery disease): Code(s): I25.10 - Atherosclerotic heart disease of [place] coronary artery without angina pectoris Status: Chronic Assessment and Plan: patient had been maintained on dual antiplatelet therapy as an outpatient. May be able to simplify further Cindy clopidogrel over aspirin history of gastric ulcer. Continue atorvastatin atherosclerotic risk reduction. Goal LDL less than 70. Avoid all AV idalia blocking agents particular metoprolol. (3) Recurrent falls while walking: Code(s): R29.6 - Repeated falls Status: Chronic Assessment and Plan: As above. PT OT evaluation. Explained likely multifactorial contribution to fall risk,, need to exclude other treatable secondary reversible causes to contribute persistent bradycardia to weakness and falls. No high-grade AV blocks or prolonged pauses noted thus far. DVT prophylaxis. (4) Foot pain: Code(s): M79.673 - Pain in unspecified foot Status: Acute Assessment and Plan: S/p debridement. Surgery following. (5) Essential (primary) hypertension: Code(s): I10 - Essential (primary) hypertension Status: Chronic Assessment and Plan: Stable, she remains hypertensive. Check orthostatic vital signs. Hydralazine and losartan have been held since admission. (6) Anemia: Code(s): D64.9 - Anemia, unspecified Status: Acute Assessment and Plan: Worsen from July 2022 but stable from October with mild decline. Monitor for bleeding, workup underway. Mild thrombocytopenia. Monitor platelet count. (7) Type 2 diabetes mellitus: Code(s): E11.9 - Type 2 diabetes mellitus without complications Status: Acute Assessment and Plan: Diabetes management per primary service. (8) S/P CABG (coronary artery bypass graft): Code(s): Z95.1 - Presence of aortocoronary bypass graft Status: Chronic Assessment and Plan: As above. No anginal symptoms. History of 3 vessel with only MACIAS to LAD remaining on left heart catheterization 2019 per outpatient cardiovascular records. Subjective Date/time seen: 01/17/23 10:06 Interval history: 82-year-old consult for bradycardia. Date of service 01/17/2023: Beta-raegan held and heart rate is now better. She denies any chest pain or shortness of breath Review of Systems Review of Systems: All systems reviewed & are unremarkable except as noted in HPI and below Constitutional: Constitutional: Reports as per HPI and Reports no additional constitutional complaints Eyes: Eyes: Reports as per HPI and Reports no additional eye complaints ENT: Reports system reviewed and no additional complaints, except as documented and Reports as per HPI Cardiovascular: Cardiovascular: Reports as per HPI and Reports no additional cardiovascular complaints Respiratory: Respiratory: Reports as per HPI and Reports no additional respiratory complaints Gastrointestinal: Gastrointestinal: Reports as per HPI and Reports no additional gastrointestinal complaints Genitourinary: Genitourinary: Reports as per HPI Musculoskeletal: Musculoskeletal: Reports no additional musculoskeletal complaints and Reports as per HPI Integumentary/Breasts: Skin/Breast: Reports system reviewed and no additio
[2023-01-17] MEDS: CLOPIDOGREL BISULFATE 75 MG TABLET PO (10:39)
[2023-01-17 12:16] LABS: Glucose Point of Care 95 mg/dl (65-105)
--- NOTE | 2023-01-17 14:38 | PM.IMPN ---
Progress Note: A&P Assessment and Plan (1) Sinus bradycardia: Code(s): R00.1 - Bradycardia, unspecified Status: Chronic Assessment and Plan: Will continue to monitor Admit to [facility] telemetry Cardiology consult Avoid beta-blockers Avoid calcium channel raegan SINUS BRADYCARDIA WITH SINUS ARRHYTHMIA WITH FIRST DEGREE AV BLOCK POSSIBLE RIGHT VENTRICULAR HYPERTROPHY [SOME/ALL OF: PROMINENT R IN V1, LATE TRANSITION, RAD, TAMELA, SSS] INFERIOR MYOCARDIAL INFARCTION , OF INDETERMINATE AGE [40+ ms Q WAVE AND/OR ST/T ABNORMALITY IN II/aVF] NO PREVIOUS ECG AVAILABLE FOR COMPARISO 01/17/2023 interval history: 82-year-old female with history of coronary artery disease status post CABG presented with a syncopal episode patient stated there were no prodrome she just fell, patient states she was on the ground for 30 minutes before she call for help, however upon arrival EKG showed sinus bradycardia suspect her syncopal episode may be related to bradycardia, seen by veterans services specialist held BB and her HR is trending up, will continue to monitor, echo showed preserved LV function with grade 2 diastolic dysfunction, and further recommendation to follow, patient was transferred to IMU. patient also found to cellulitis on right dorsum of the foot patient was seen by surgery service and had I&D surgeon suspect infected hematoma, started patient on ceftriaxone, wlll follow up on wound culture, patient still with difficulty with bearing weight on the foot, will encourage to participate in PT and further recommendation to follow. (2) Recurrent falls while walking: Code(s): R29.6 - Repeated falls Status: Chronic Assessment and Plan: PT OT consult (3) TIA (transient ischemic attack): Code(s): G45.9 - Transient cerebral ischemic attack, unspecified Status: Acute Assessment and Plan: Patient noted to be bradycardic which could be potentially contributing to these subjective feelings Physical exam no findings CT of the head reported as: FINDINGS: No acute intracranial hemorrhage or extra-axial fluid collection. No hydrocephalus, mass, or herniation. No acute ischemic infarct. Unremarkable dural venous sinus attenuation. No acute osseous abnormality. The? aerated spaces are clear. Right frontal scalp contusion/hematoma, near the vertex. Mild atrophy and chronic white matter change. Atherosclerotic intracranial calcification. Bilateral lens replacements. IMPRESSION:? No acute intracranial process. (4) CAD (coronary artery disease): Code(s): I25.10 - Atherosclerotic heart disease of [place] coronary artery without angina pectoris Status: Chronic Assessment and Plan: Chest pain-free Status post coronary artery bypass grafting (5) Type 2 diabetes mellitus: Code(s): E11.9 - Type 2 diabetes mellitus without complications Status: Acute Assessment and Plan: Patient is on metformin at home (6) PAD (peripheral artery disease): Code(s): I73.9 - Peripheral vascular disease, unspecified Status: Chronic Assessment and Plan: Unchanged (7) Essential (primary) hypertension: Code(s): I10 - Essential (primary) hypertension Status: Chronic Assessment and Plan: Unchanged (8) Obesity (BMI 30-39.9): Code(s): E66.9 - Obesity, unspecified Status: Acute Assessment and Plan: Carb consistent diet (9) Spinal stenosis, unspecified region other than cervical: Code(s): M48.00 - Spinal stenosis, site unspecified Status: Acute Assessment and Plan: Unchanged (10) S/P CABG (coronary artery bypass graft): Code(s): Z95.1 - Presence of aortocoronary bypass graft Status: Chronic Assessment and Plan: Unchanged (11) Gastro-esophageal reflux disease without esophagitis: Code(s): K21.9 - Gastro-esophageal reflux disease without esophagitis Status: Acute Assessment and Plan: PPI
[2023-01-17] MEDS: cefTRIAXone 2 GM in SODIUM CHLORIDE 0.9% IV 100 ML 200 ML IVPB (14:43)
[2023-01-17] MEDS: HYDROcodone/acetaminophen (*CRX) 5-325 MG TABLET 1 TAB PO (15:35)
[2023-01-17 16:21] LABS: Glucose Point of Care 122 mg/dl (65-105)
--- NOTE | 2023-01-17 18:21 | PC.NURSE ---
This patient, Leila Baugh, was received from [facility] on 01/17/23 at 1822. Patient/family oriented to unit policies and routines
[2023-01-17 20:25] LABS: Glucose Point of Care 155 mg/dl (65-105)
[2023-01-17] MEDS: ASPIRIN 81 MG ENTERIC TABLET PO (20:27)
[2023-01-18] VITALS (11 sets, daily range): BP systolic 136–167; BP diastolic 46–91; PULSE 47–67; RESP 12–18; TEMP 36.6–36.7; O2SAT 90–95
[2023-01-18] MEDS: LEVOTHYROXINE SODIUM 112 MCG TABLET PO (05:27)
[2023-01-18 08:15] LABS: Glucose Point of Care 96 mg/dl (65-105)
--- NOTE | 2023-01-18 08:55 | PM.PNCARD ---
Progress Note: A&P Assessment and Plan (1) Sinus bradycardia: Code(s): R00.1 - Bradycardia, unspecified Status: Chronic Assessment and Plan: She has sinus bradycardia, improved wit discontinuation of beta raegan Continue telemetry for now. EF preserved by echocardiogram personally reviewed. Severe pulmonary hypertension RVSP 63 mm Hg noted, however. She remains in sinus rhythm without prolonged pauses or high-grade AV blocks. Heart rate improved now day 4 off metoprolol sleeping heart rate in the 40s generally 50s to 70s. No indication for PPM at this time. Continue to avoid AV idalia agents (2) CAD (coronary artery disease): Code(s): I25.10 - Atherosclerotic heart disease of [place] coronary artery without angina pectoris Status: Chronic Assessment and Plan: patient had been maintained on dual antiplatelet therapy as an outpatient. May be able to simplify further Cindy clopidogrel over aspirin history of gastric ulcer. Continue atorvastatin atherosclerotic risk reduction. Goal LDL less than 70. Avoid all AV idalia blocking agents particular metoprolol. (3) Recurrent falls while walking: Code(s): R29.6 - Repeated falls Status: Chronic Assessment and Plan: As above. PT OT evaluation. Explained likely multifactorial contribution to fall risk,, need to exclude other treatable secondary reversible causes to contribute persistent bradycardia to weakness and falls. No high-grade AV blocks or prolonged pauses noted thus far. DVT prophylaxis. (4) Foot pain: Code(s): M79.673 - Pain in unspecified foot Status: Acute Assessment and Plan: S/p debridement. Surgery following. (5) Essential (primary) hypertension: Code(s): I10 - Essential (primary) hypertension Status: Chronic Assessment and Plan: Stable, she remains hypertensive. Check orthostatic vital signs. Hydralazine and losartan have been held since admission. (6) Anemia: Code(s): D64.9 - Anemia, unspecified Status: Acute Assessment and Plan: Worsen from July 2022 but stable from October with mild decline. Monitor for bleeding, workup underway. Mild thrombocytopenia. Monitor platelet count. (7) Type 2 diabetes mellitus: Code(s): E11.9 - Type 2 diabetes mellitus without complications Status: Acute Assessment and Plan: Diabetes management per primary service. (8) S/P CABG (coronary artery bypass graft): Code(s): Z95.1 - Presence of aortocoronary bypass graft Status: Chronic Assessment and Plan: As above. No anginal symptoms. History of 3 vessel with only MACIAS to LAD remaining on left heart catheterization 2019 per outpatient cardiovascular records. Subjective Date/time seen: 01/18/23 08:55 Interval history: 82-year-old consult for bradycardia. Date of service 01/17/2023: Beta-raegan held and heart rate is now better. She denies any chest pain or shortness of breath Date of service 01/18/2023: Still intermittently bradycardic but not symptomatic from it Review of Systems Review of Systems: All systems reviewed & are unremarkable except as noted in HPI and below Constitutional: Constitutional: Reports as per HPI and Reports no additional constitutional complaints Eyes: Eyes: Reports as per HPI and Reports no additional eye complaints ENT: Reports system reviewed and no additional complaints, except as documented and Reports as per HPI Cardiovascular: Cardiovascular: Reports as per HPI and Reports no additional cardiovascular complaints Respiratory: Respiratory: Reports as per HPI and Reports no additional respiratory complaints Gastrointestinal: Gastrointestinal: Reports as per HPI and Reports no additional gastrointestinal complaints Genitourinary: Genitourinary: Reports as per HPI Musculoskeletal: Musculoskeletal: Reports no additional musculoskeletal complaints and Rep
[2023-01-18] MEDS: CHOLECALCIFEROL 1,000 UNITS TABLET 2000 UNITS PO (09:12)
[2023-01-18] MEDS: allopurinoL 100 MG TABLET PO (09:12)
[2023-01-18] MEDS: LOSARTAN POTASSIUM 25 MG TABLET PO (09:12)
[2023-01-18] MEDS: ATORVASTATIN 20 MG TABLET PO (09:12)
[2023-01-18] MEDS: CLOPIDOGREL BISULFATE 75 MG TABLET PO (09:12)
[2023-01-18] MEDS: oxyBUTYnin CHLORIDE 5 MG TABLET PO ×2 (09:13→16:54)
[2023-01-18] MEDS: TOLNAFTATE 1% POWDER 45 GM BTL 1 APPLIC TOPICAL ×2 (09:13→22:07)
[2023-01-18] MEDS: PANTOPRAZOLE 40 MG TABLET PO (09:13)
[2023-01-18] MEDS: SILVERGEL (ELTA) 45 ML 1 APPLIC TOPICAL (11:21)
--- NOTE | 2023-01-18 11:58 | PM.IMPN ---
Progress Note: A&P Assessment and Plan (1) Sinus bradycardia: Code(s): R00.1 - Bradycardia, unspecified Status: Chronic Assessment and Plan: Will continue to monitor Admit to [facility] telemetry Cardiology consult Avoid beta-blockers Avoid calcium channel raegan SINUS BRADYCARDIA WITH SINUS ARRHYTHMIA WITH FIRST DEGREE AV BLOCK POSSIBLE RIGHT VENTRICULAR HYPERTROPHY [SOME/ALL OF: PROMINENT R IN V1, LATE TRANSITION, RAD, TAMELA, SSS] INFERIOR MYOCARDIAL INFARCTION , OF INDETERMINATE AGE [40+ ms Q WAVE AND/OR ST/T ABNORMALITY IN II/aVF] NO PREVIOUS ECG AVAILABLE FOR COMPARISO 01/18/2023 interval history: 82-year-old female with history of coronary artery disease status post CABG presented with a syncopal episode patient stated there were no prodrome she just fell, patient states she was on the ground for 30 minutes before she call for help, however upon arrival EKG showed sinus bradycardia suspect her syncopal episode may be related to bradycardia, seen by production line worker held BB and her HR is trending up, will continue to monitor, echo showed preserved LV function with grade 2 diastolic dysfunction, and further recommendation to follow, patient was transferred to IMU. patient also found to have cellulitis on right dorsum of the foot patient was seen by surgery service and had I&D surgeon suspect infected hematoma, started patient on ceftriaxone, wlll follow up on wound culture, still no growth, patient still with difficulty with bearing weight on the foot, today patient c/o pain and painful with ROM, suspect rotator cuff injury, will consult orthopedics, will encourage to participate in PT and further recommendation to follow. (2) Recurrent falls while walking: Code(s): R29.6 - Repeated falls Status: Chronic Assessment and Plan: PT OT consult (3) TIA (transient ischemic attack): Code(s): G45.9 - Transient cerebral ischemic attack, unspecified Status: Acute Assessment and Plan: Patient noted to be bradycardic which could be potentially contributing to these subjective feelings Physical exam no findings CT of the head reported as: FINDINGS: No acute intracranial hemorrhage or extra-axial fluid collection. No hydrocephalus, mass, or herniation. No acute ischemic infarct. Unremarkable dural venous sinus attenuation. No acute osseous abnormality. The? aerated spaces are clear. Right frontal scalp contusion/hematoma, near the vertex. Mild atrophy and chronic white matter change. Atherosclerotic intracranial calcification. Bilateral lens replacements. IMPRESSION:? No acute intracranial process. (4) CAD (coronary artery disease): Code(s): I25.10 - Atherosclerotic heart disease of [place] coronary artery without angina pectoris Status: Chronic Assessment and Plan: Chest pain-free Status post coronary artery bypass grafting (5) Type 2 diabetes mellitus: Code(s): E11.9 - Type 2 diabetes mellitus without complications Status: Acute Assessment and Plan: Patient is on metformin at home (6) PAD (peripheral artery disease): Code(s): I73.9 - Peripheral vascular disease, unspecified Status: Chronic Assessment and Plan: Unchanged (7) Essential (primary) hypertension: Code(s): I10 - Essential (primary) hypertension Status: Chronic Assessment and Plan: Unchanged (8) Obesity (BMI 30-39.9): Code(s): E66.9 - Obesity, unspecified Status: Acute Assessment and Plan: Carb consistent diet (9) Spinal stenosis, unspecified region other than cervical: Code(s): M48.00 - Spinal stenosis, site unspecified Status: Acute Assessment and Plan: Unchanged (10) S/P CABG (coronary artery bypass graft): Code(s): Z95.1 - Presence of aortocoronary bypass graft Status: Chronic Assessment and Plan: Unchanged (11) Gastro-esophageal reflux disease without esophagitis: C
[2023-01-18 12:26] LABS: Glucose Point of Care 113 mg/dl (65-105)
[2023-01-18] MEDS: cefTRIAXone 2 GM in SODIUM CHLORIDE 0.9% IV 100 ML 200 ML IVPB (13:33)
[2023-01-18 17:22] LABS: Glucose Point of Care 151 mg/dl (65-105)
[2023-01-18 21:01] LABS: Glucose Point of Care 161 mg/dl (65-105)
[2023-01-18] MEDS: ASPIRIN 81 MG ENTERIC TABLET PO (22:06)
[2023-01-19] VITALS (11 sets, daily range): BP systolic 144–161; BP diastolic 44–51; PULSE 48–67; RESP 14–18; TEMP 36.4–36.9; O2SAT 92–99
[2023-01-19 06:23] LABS: Hematocrit 24.6 % (37.0-47.0); Mean Corpuscular HGB Conc 32.5 g/dl (32-36); Mean Corpuscular Volume 92.1 fl (80-100); Mean Platelet Volume 11.3 fl (7.4-10.4); Platelet Count Result 138 k/mm3 (150-375); Red Blood Count 2.67 M/mm3 (4.2-5.4); Red Cell Distribution Width 14.8 % (11.5-14.5); White Blood Count 5.8 K/mm3 (4.5-10.0)
[2023-01-19] MEDS: LEVOTHYROXINE SODIUM 112 MCG TABLET PO (06:34)
[2023-01-19 06:35] LABS: Anion Gap 4 mmol/L (8-16); Blood Urea Nitrogen 25 mg/dL (7-17); Calcium 8.7 mg/dL (8.4-10.2); Carbon Dioxide 26 mmol/L (22-30); Chloride 103 mmol/L (98-107); Estimated CRCL calculation 32 ml/min; Estimated Glomerular Filt Rate 39; Glucose 98 mg/dL (65-110); Sodium 133 mmol/L (137-145)
[2023-01-19 08:02] LABS: Glucose Point of Care 101 mg/dl (65-105)
[2023-01-19] MEDS: allopurinoL 100 MG TABLET PO (10:13)
[2023-01-19] MEDS: LOSARTAN POTASSIUM 25 MG TABLET PO (10:13)
[2023-01-19] MEDS: oxyBUTYnin CHLORIDE 5 MG TABLET PO ×2 (10:13→17:54)
[2023-01-19] MEDS: ATORVASTATIN 20 MG TABLET PO (10:13)
[2023-01-19] MEDS: PANTOPRAZOLE 40 MG TABLET PO (10:13)
[2023-01-19] MEDS: CHOLECALCIFEROL 1,000 UNITS TABLET 2000 UNITS PO (10:13)
[2023-01-19] MEDS: CLOPIDOGREL BISULFATE 75 MG TABLET PO (10:13)
[2023-01-19] MEDS: TRIAMCINOLONE ACET 0.1% OINT 15 GM TUBE 1 APPLIC TOPICAL ×2 (10:14→17:54)
[2023-01-19] MEDS: SILVERGEL (ELTA) 45 ML 1 APPLIC TOPICAL (10:14)
[2023-01-19] MEDS: TOLNAFTATE 1% POWDER 45 GM BTL 1 APPLIC TOPICAL ×2 (10:15→20:19)
--- NOTE | 2023-01-19 11:17 | PM.IMPN ---
Progress Note: A&P Assessment and Plan (1) Sinus bradycardia: Code(s): R00.1 - Bradycardia, unspecified Status: Chronic Assessment and Plan: Will continue to monitor Admit to [facility] telemetry Cardiology consult Avoid beta-blockers Avoid calcium channel raegan SINUS BRADYCARDIA WITH SINUS ARRHYTHMIA WITH FIRST DEGREE AV BLOCK POSSIBLE RIGHT VENTRICULAR HYPERTROPHY [SOME/ALL OF: PROMINENT R IN V1, LATE TRANSITION, RAD, TAMELA, SSS] INFERIOR MYOCARDIAL INFARCTION , OF INDETERMINATE AGE [40+ ms Q WAVE AND/OR ST/T ABNORMALITY IN II/aVF] NO PREVIOUS ECG AVAILABLE FOR COMPARISO 01/19/2023 interval history: 82-year-old female with history of coronary artery disease status post CABG presented with a syncopal episode patient stated there were no prodrome she just fell, patient states she was on the ground for 30 minutes before she call for help, however upon arrival EKG showed sinus bradycardia suspect her syncopal episode may be related to bradycardia, seen by freezing room worker held BB and her HR is trending up, will continue to monitor, echo showed preserved LV function with grade 2 diastolic dysfunction, and further recommendation to follow, patient was transferred to IMU. patient also found to have cellulitis on right dorsum of the foot patient was seen by surgery service and had I&D surgeon suspect infected hematoma, started patient on ceftriaxone, wlll follow up on wound culture, still no growth, will stop abxm patient still with difficulty with bearing weight on the foot, on 01/18 patient c/o pain and painful with ROM, RT shoulder, suspect rotator cuff injury, will consult orthopedics, will encourage to participate in PT, discuss with patient care technician instructor, patient will benefit going to SNF rehabm and further recommendation to follow. (2) Recurrent falls while walking: Code(s): R29.6 - Repeated falls Status: Chronic Assessment and Plan: PT OT consult (3) TIA (transient ischemic attack): Code(s): G45.9 - Transient cerebral ischemic attack, unspecified Status: Acute Assessment and Plan: Patient noted to be bradycardic which could be potentially contributing to these subjective feelings Physical exam no findings CT of the head reported as: FINDINGS: No acute intracranial hemorrhage or extra-axial fluid collection. No hydrocephalus, mass, or herniation. No acute ischemic infarct. Unremarkable dural venous sinus attenuation. No acute osseous abnormality. The? aerated spaces are clear. Right frontal scalp contusion/hematoma, near the vertex. Mild atrophy and chronic white matter change. Atherosclerotic intracranial calcification. Bilateral lens replacements. IMPRESSION:? No acute intracranial process. (4) CAD (coronary artery disease): Code(s): I25.10 - Atherosclerotic heart disease of [place] coronary artery without angina pectoris Status: Chronic Assessment and Plan: Chest pain-free Status post coronary artery bypass grafting (5) Type 2 diabetes mellitus: Code(s): E11.9 - Type 2 diabetes mellitus without complications Status: Acute Assessment and Plan: Patient is on metformin at home (6) PAD (peripheral artery disease): Code(s): I73.9 - Peripheral vascular disease, unspecified Status: Chronic Assessment and Plan: Unchanged (7) Essential (primary) hypertension: Code(s): I10 - Essential (primary) hypertension Status: Chronic Assessment and Plan: Unchanged (8) Obesity (BMI 30-39.9): Code(s): E66.9 - Obesity, unspecified Status: Acute Assessment and Plan: Carb consistent diet (9) Spinal stenosis, unspecified region other than cervical: Code(s): M48.00 - Spinal stenosis, site unspecified Status: Acute Assessment and Plan: Unchanged (10) S/P CABG (coronary artery bypass graft): Code(s): Z95.1 - Presence of aortocoronary bypass graft Status: Chronic
--- NOTE | 2023-01-19 11:40 | PM.CNOR ---
Assessment and Plan Assessment and plan (1) Shoulder pain: Code(s): M25.519 - Pain in unspecified shoulder Status: Acute Assessment and Plan: Patient is an 82-year-old female I am asked to see for evaluation right shoulder. She complains of occasional pain she lives in overhead and she has noticed that it is weak your than should be. She does have a history of rotator cuff repair on the left side. She has history of tingling in the fingers of her right hand that seems to travel up to the shoulder. This happens on the left at times as well. To get relief she shakes her hand and it goes away. It does not linger. Sometimes it feels like electricity sensation. She denies any neck pain. She did have a CT scan of her cervical spine that showed significant spondylosis and foraminal stenosis. She denies any trauma to the right shoulder. On exam today she was a pleasant female in no acute distress. She is alert and oriented. She does have significant obesity with BMI of 39.2. There is an anterolateral shoulder scar on the left shoulder consistent with prior open rotator cuff repair. She had passive elevation of the right shoulder to 150 the cause no significant discomfort but with active elevation of the right shoulder to 100? she felt her typical lateral shoulder soreness. External rotation passively was to 60? which caused anterior shoulder soreness. On strength testing she had normal belly press but moderately severe weakness with external rotation strength testing with the arm at the side and at least moderate abduction weakness. This was not painful. She had no redness swelling warmth and no significant tenderness today about the shoulder. She had intact light touch sensation from the shoulder down through her fingertips today. 2+ radial artery pulse palpable. Negative Tinel's over the median nerve at the wrist. Neck range of motion cause no discomfort and negative Spurling's bilaterally. She had 2+ right biceps and brachioradialis reflexes. She had 5/5 muscle strength in all muscle groups of the right upper extremity. Normal thenar eminence bulk and firmness to firing of the abductor pollicis brevis. Normal intrinsic strength normal wrist flexion extension finger flexion extension strength normal elbow flexion extension strength. She had absent knee jerk reflexes bilaterally negative clonus bilaterally. Patient has history of bilateral knee replacements many years ago. Patient was a on January 14 with a severe hematoma of the right foot from a trauma which clinically appeared to be infected and cultures thus far have been no growth to date. Her white count is 5.8 1000 today. She does have anemia hemoglobin 8.0. Platelets [id number]. A PTT elevated at 40.5. Was admission 01/13/2023. Creatinine today 1.3 creatinine clearance 32 Bnp elevated at 2700 urine showed no signs of urinary tract infection history of coronary artery bypass history of erosive gastritis hypertension and hypothyroidism. Impression: From the standpoint of her right shoulder pain and weakness, I suspect that she has a chronic rotator cuff tear posterior superior involving supraspinatus and infraspinatus tendons. I ordered x-rays of her right shoulder earlier but they have not been done yet. Differential diagnosis would include neurologic weakness such as a C5 radiculopathy. Her normal biceps elbow flexion strength could argue against that. Biceps reflex is normal also. Her tingling may be a sign of radicular symptoms or carpal tunnel syndrome. It has occurred infrequently enough and is mild enough that she has not sought medical attention have that evaluated. The same holds true with her shoulder symptoms. With respect to the numbness and tingling, and EMG nerve conduction velocity test would be appropriate to determine whether this represents a peripheral neuropathy such as carpal tunnel syndrome or radiculopathy. 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
[2023-01-19 12:14] LABS: Glucose Point of Care 109 mg/dl (65-105)
[2023-01-19] MEDS: polyethylene glycoL 3350 17 GM POWD.PACK PO (12:32)
[2023-01-19] MEDS: cefTRIAXone 2 GM in SODIUM CHLORIDE 0.9% IV 100 ML 200 ML IVPB (12:32)
[2023-01-19] MEDS: DOCUSATE SODIUM 100 MG CAPSULE PO ×2 (12:32→20:19)
[2023-01-19 12:37] LABS: INR 1.2; Prothrombin Time 15.1 Seconds (11.1-14.7)
--- NOTE | 2023-01-19 13:57 | PM.DS ---
DS: Summary Time Spent with Patient Time attestation: Total time spent providing and/or coordinating discharge services: DS: Data Data Completed and Pending Labs on day of discharge: Labs from last 24 hours 01/19/23 01/19/23 01/19/23 12:11 12:11 07:56 WBC RBC Hgb Hct MCV MCH MCHC RDW Plt Count MPV % Immature Plt Fraction PT 15.1 H INR 1.2 Sodium Potassium Chloride Carbon Dioxide Anion Gap BUN Creatinine Estim Creat Clear Calc Estimated GFR Glucose POC Capillary Glucose 109 H 101 Calcium Magnesium 01/19/23 01/19/23 01/18/23 05:54 05:54 20:20 WBC 5.8 RBC 2.67 L Hgb 8.0 L Hct 24.6 L MCV 92.1 MCH 30.0 MCHC 32.5 RDW 14.8 H Plt Count 138 L MPV 11.3 H % Immature Plt Fraction 7.0 PT INR Sodium 133 L Potassium 4.0 Chloride 103 Carbon Dioxide 26 Anion Gap 4 L BUN 25 H Creatinine 1.30 H Estim Creat Clear Calc 32 Estimated GFR 39 L Glucose 98 POC Capillary Glucose 161 H Calcium 8.7 Magnesium 2.0 01/18/23 17:11 WBC RBC Hgb Hct MCV MCH MCHC RDW Plt Count MPV % Immature Plt Fraction PT INR Sodium Potassium Chloride Carbon Dioxide Anion Gap BUN Creatinine Estim Creat Clear Calc Estimated GFR Glucose POC Capillary Glucose 151 H Calcium Magnesium Preliminary micro results at discharge 01/15/23 16:02 Anaerobic Culture - Preliminary Foot Right Discharge Plan Discharge Attending physician on discharge: Jaime Sargent Consulting providers: Truman Mcneil ; Jarad Linares ; Del Jenkins Discharging Clinician: Jaime Sargent Patient Disposition: NH [facility]/Asst Living Activity: as tolerated Diet: heart healthy Wound Care Instructions: keep dressing dry, remove dressing to shower, change dressing daily and other - see discharge instructions Discharge Instructions: Dressing changes for right foot wound: Apply silver gel to open wound daily. Cover with gauze and wrapped foot and ankle with 4 in Raffy wrap. Keep dressing dry. Remove dressing to wash the foot. Okay to shower. Soap and water are good for wound healing. Okay to ambulate on right foot and leg. Orders for the right shoulder: Patient appears to have chronic rotator cuff tear right shoulder. She would like to have therapy or a home rotator cuff tear protocol - is in improved function range of motion scapular and upper thoracic posture exercises. The the Patient to follow discharge care instruction from her surgeon and follow up as scheduled, patient to follow up with her rental sales agent, orthopedics and primary care provider as soon as possible. Patient Instructions: Antibiotic Form, Transient Ischemic Attack (DC), Blood Thinners (DC) Stand Alone Forms: General Discharge Information Follow-up/Referrals: Truman Mcneil MD [Physician] - 6 Weeks Rodo Gutiérrez DO [Primary Care Provider] - Jarad Linares MD [Physician] - 2 Weeks (See Dr. Linares in his office 2 weeks after discharge. Call to make appointment.) Del Jenkins MD [Physician] - Discharge Medications: New hydrocodone-acetaminophen 5-325 mg Tablet 1 tablet PO Q4H PRN (Reason: Pain Rated 4-6) Qty: 2 0RF tolnaftate 1 % Powder 1 applic topical Q12HR Qty: 30 0RF Silver-Sept 200 mcg/gram Gel 1 applic topical DAILY Qty: 25 0RF polyethylene glycol 3350 [Miralax] 17 gram Powder In Packet 17 g PO QAM Qty: 14 0RF Continued aspirin [Adult Low Dose Aspirin] 81 mg tablet,delayed release (DR/EC) 81 mg PO HS atorvastatin 20 mg tablet 20 mg PO DAILY losartan 25 mg tablet 25 mg PO DAILY (DME) lancets [Microlet Lancet] Misc See Rx Instructions .ROUTE .MEDSUPPLY Qty: 50 Rx Instructions: As directed clopidogrel 75 mg tablet 75 mg PO DAILY cholecalciferol (vi
[2023-01-19 17:33] LABS: Glucose Point of Care 128 mg/dl (65-105)
[2023-01-19] MEDS: ASPIRIN 81 MG ENTERIC TABLET PO (20:19)
[2023-01-19 20:47] LABS: Glucose Point of Care 147 mg/dl (65-105)
[2023-01-20] VITALS (10 sets, daily range): BP systolic 143–160; BP diastolic 51–58; PULSE 46–59; RESP 16–18; TEMP 36.4–36.8; O2SAT 93–98
[2023-01-20 05:32] LABS: Hematocrit 24.1 % (37.0-47.0); Hemoglobin 7.8 g/dL (12.0-15.0); Mean Corpuscular HGB Conc 32.4 g/dl (32-36); Mean Corpuscular Hemoglobin 29.1 pg (26-34); Mean Corpuscular Volume 89.9 fl (80-100); Mean Platelet Volume 10.9 fl (7.4-10.4); Platelet Count Result 141 k/mm3 (150-375); Red Blood Count 2.68 M/mm3 (4.2-5.4); Red Cell Distribution Width 14.3 % (11.5-14.5); White Blood Count 5.9 K/mm3 (4.5-10.0)
[2023-01-20] MEDS: LEVOTHYROXINE SODIUM 112 MCG TABLET PO (05:44)
[2023-01-20 05:46] LABS: Anion Gap 4 mmol/L (8-16); Blood Urea Nitrogen 23 mg/dL (7-17); Calcium 8.6 mg/dL (8.4-10.2); Carbon Dioxide 27 mmol/L (22-30); Chloride 106 mmol/L (98-107); Estimated CRCL calculation 35 ml/min; Estimated Glomerular Filt Rate 43; Glucose 93 mg/dL (65-110); Potassium 4.1 mmol/L (3.4-5.0); Sodium 137 mmol/L (137-145)
--- NOTE | 2023-01-20 08:00 | PM.PNORT ---
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 Most likely the shoulder has become symptomatic for her because of her foot issue and having to use her arms more to get up out of the chair or up out of the bed. I did offer her a cortisone injection again today and she wished to do that. I will inject subacromial space this morning. Office will give her some relief of her symptoms. Have put in orders in her discharge summary for her care facility to work on some gentle range of motion exercises as well for the shoulder. Patient can repeat injections in the future as often as every 3 months and if she feels the injection helps they can call the office to set up an appointment in the future. Objective Data Vital Signs Vital Signs: Vital Signs - 24 hr 01/19/23 10:21 01/19/23 10:15 01/19/23 14:08 Temperature 36.4 C Pulse Rate 56 L 52 L Respiratory Rate 14 16 Blood Pressure 148/51 H 161/46 H Pulse Oximetry 92 92 94 Oxygen Delivery Nasal Cannula Oxygen Flow Rate 2 01/19/23 12:00 01/19/23 16:00 01/19/23 21:32 Temperature 36.4 C Pulse Rate 52 L 48 L 50 L Respiratory Rate 17 Blood Pressure 145/44 H Pulse Oximetry 97 Oxygen Delivery Oxygen Flow Rate 01/19/23 20:45 01/20/23 00:00 01/20/23 04:00 Temperature Pulse Rate 51 L 50 L 46 L Respiratory Rate Blood Pressure Pulse Oximetry Oxygen Delivery Oxygen Flow Rate 01/20/23 05:26 Temperature 36.8 C Pulse Rate 50 L Respiratory Rate 17 Blood Pressure 143/51 H Pulse Oximetry 96 Oxygen Delivery Oxygen Flow Rate Intake/Output Intake/Output: Intake & Output 01/17/23 01/18/23 01/19/23 01/20/23 23:59 23:59 23:59 23:59 Intake Total 1070 1270 1430 550 Output Total 1100 350 900 400 Balance -30 920 530 150 Meds/Results Medications: Active Medications Generic Name Dose Route Start Last Admin Trade Name Freq PRN Reason Stop Dose Admin Acetaminophen 500 mg 01/15/23 17:29 Acetaminophen 500 Mg Tablet PO Q6H PRN Mild Pain (1-3) or Fever Hydrocodone Bitart/Acetaminophen 1 tab 01/15/23 17:29 01/17/23 15:35 Hydrocodone/Acetaminophen (*Crx) 5-325 Mg Tablet PO 1 tab Q4H PRN Administration Pain Rated 4-6 Allopurinol 100 mg 01/15/23 08:00 01/19/23 10:13 Allopurinol 100 Mg Tablet PO 100 mg DAILY@0800 BALA Administration Aspirin 81 mg 01/14/23 21:00 01/19/23 20:19 Aspirin 81 Mg Enteric Tablet PO 81 mg HS BALA Administration Atorvastatin Calcium 20 mg 01/15/23 09:00 01/19/23 10:13 Atorvastatin 20 Mg Tablet PO 20 mg DAILY BALA Administration Azelastine HCl 2 spray 01/14/23 15:49 Azelastine Hcl Nasal 0.1% 137 Mcg/Spr 30 Ml Btl NASAL BID PRN Allergy Symptoms Clopidogrel Bisulfate 75 mg 01/15/23 09:00 01/19/23 10:13 Clopidogrel Bisulfate 75 Mg Tablet PO 75 mg DAILY BALA Administration Dextrose 12.5 gm 01/14/23 16:04 Dextrose 50% 25 Gm/50 Ml Syringe IV PUSH PRN PRN Hypoglycemia Protocol Docusate Sodium 100 mg 01/19/23 12:25 01/19/23 20:19 Docusate Sodium 100 Mg Capsule PO 100 mg Q12HR BALA Administration Glucagon 1 mg 01/14/23 16:04 Glucagon For Inj 1 Mg Vial IM PRN PRN Hypoglycemia Protocol Glucose 15 gm 01/14/23 16:04 Glucose Oral Gel 15 Gm Of Glucse In 37.5 Gm Tube PO PRN PRN Hypoglycemia Protocol Dextrose 1,000 mls @ 100 mls/hr 01/14/23 16:04 Dextrose 5% 1,000 Ml IVPB PRN PRN Hypoglycemia Protocol Insulin Aspart 2 - 5 units 01/14/23 17:00 01/19/23 17:43 Insulin Aspart (*Bkc) 100 Units/Ml SUB-Q Not Given TIDWM [facility] Protocol Levothyroxine Sodium 112 mcg 01/15/23 06:30 01/20/23 05:44 Levothyroxine Sodium 112 Mcg Tablet PO 112 mcg CHAPO
[2023-01-20 08:29] LABS: Glucose Point of Care 105 mg/dl (65-105)
[2023-01-20] MEDS: CHOLECALCIFEROL 1,000 UNITS TABLET 2000 UNITS PO (08:39)
[2023-01-20] MEDS: LOSARTAN POTASSIUM 25 MG TABLET PO (08:39)
[2023-01-20] MEDS: oxyBUTYnin CHLORIDE 5 MG TABLET PO ×2 (08:39→17:28)
[2023-01-20] MEDS: ATORVASTATIN 20 MG TABLET PO (08:39)
[2023-01-20] MEDS: allopurinoL 100 MG TABLET PO (08:40)
[2023-01-20] MEDS: CLOPIDOGREL BISULFATE 75 MG TABLET PO (08:40)
[2023-01-20] MEDS: PANTOPRAZOLE 40 MG TABLET PO (08:40)
[2023-01-20] MEDS: LIDOCAINE HCL 1% LOCAL INJ 20 ML VIAL 4 ML IM (08:47)
[2023-01-20] MEDS: methylPREDNISolone ACETATE 80 MG/ML VIAL IM (08:48)
[2023-01-20] MEDS: SILVERGEL (ELTA) 45 ML 1 APPLIC TOPICAL (08:50)
[2023-01-20] MEDS: DOCUSATE SODIUM 100 MG CAPSULE PO ×2 (08:50→20:18)
[2023-01-20] MEDS: polyethylene glycoL 3350 17 GM POWD.PACK PO (08:50)
[2023-01-20] MEDS: TOLNAFTATE 1% POWDER 45 GM BTL 1 APPLIC TOPICAL ×2 (08:51→20:18)
--- NOTE | 2023-01-20 10:15 | PM.PNGS ---
Progress Note: A&P Assessment and Plan (1) Abscess of right foot excluding toes: Code(s): L02.611 - Cutaneous abscess of right foot Status: Acute Assessment and Plan: S/p I&D right foot abscess on 01/15. Right foot wound healing well. Erythema and swelling resolved. Will switch to silver gel and Band-Aid dressing changes daily. Okay to discharge from our standpoint when medically stable. F/u with Dr. Linares in 2 weeks in the office. (2) Antiplatelet or antithrombotic long-term use: Code(s): Z79.02 - penitentiary (current) use of antithrombotics/antiplatelets Status: Acute Plan I have discussed the patient's case and plan of care with Dr. Linarse. Subjective Subjective Date/Time Seen: 01/20/23 10:15 Post Op day: 5 (I&D R foot abscess) Patient reports: no new complaints and afebrile Interval history: Patient seen this morning. R foot dressing has not yet been changed. She reports her right foot pain and swelling has improved since surgery. No foot pain today. Exam Const: General: no acute distress and awake Orientation/consciousness: patient oriented x3 Skin: Other: Right foot dressing removed. Small open wound on dorsum of right forefoot with granulation tissue noted and surrounding erythema and swelling nearly resolved. No purulent drainage. Objective Data Vital Signs Vital Signs: Vital Signs - 24 hr 01/19/23 10:21 01/19/23 14:08 01/19/23 12:00 Temperature 97.6 F Pulse Rate 56 L 52 L 52 L Respiratory Rate 14 16 Blood Pressure 148/51 H 161/46 H Pulse Oximetry 92 94 01/19/23 16:00 01/19/23 21:32 01/19/23 20:45 Temperature 97.6 F Pulse Rate 48 L 50 L 51 L Respiratory Rate 17 Blood Pressure 145/44 H Pulse Oximetry 97 01/20/23 00:00 01/20/23 04:00 01/20/23 05:26 Temperature 98.3 F Pulse Rate 50 L 46 L 50 L Respiratory Rate 17 Blood Pressure 143/51 H Pulse Oximetry 96 Intake/Output Intake/Output: Intake & Output 01/17/23 01/18/23 01/19/23 01/20/23 23:59 23:59 23:59 23:59 Intake Total 1070 1270 1430 550 Output Total 1100 350 900 400 Balance -30 920 530 150 Meds/Results Medications: Active Medications Generic Name Dose Route Start Last Admin Trade Name Johnq PRN Reason Stop Dose Admin Acetaminophen 500 mg 01/15/23 17:29 Acetaminophen 500 Mg Tablet PO Q6H PRN Mild Pain (1-3) or Fever Hydrocodone Bitart/Acetaminophen 1 tab 01/15/23 17:29 01/17/23 15:35 Hydrocodone/Acetaminophen (*Crx) 5-325 Mg Tablet PO 1 tab Q4H PRN Administration Pain Rated 4-6 Allopurinol 100 mg 01/15/23 08:00 01/20/23 08:40 Allopurinol 100 Mg Tablet PO 100 mg DAILY@0800 BALA Administration Aspirin 81 mg 01/14/23 21:00 01/19/23 20:19 Aspirin 81 Mg Enteric Tablet PO 81 mg HS BALA Administration Atorvastatin Calcium 20 mg 01/15/23 09:00 01/20/23 08:39 Atorvastatin 20 Mg Tablet PO 20 mg DAILY BALA Administration Azelastine HCl 2 spray 01/14/23 15:49 Azelastine Hcl Nasal 0.1% 137 Mcg/Spr 30 Ml Btl NASAL BID PRN Allergy Symptoms Clopidogrel Bisulfate 75 mg 01/15/23 09:00 01/20/23 08:40 Clopidogrel Bisulfate 75 Mg Tablet PO 75 mg DAILY BALA Administration Dextrose 12.5 gm 01/14/23 16:04 Dextrose 50% 25 Gm/50 Ml Syringe IV PUSH PRN PRN Hypoglycemia Protocol Docusate Sodium 100 mg 01/19/23 12:25 01/20/23 08:50 Docusate Sodium 100 Mg Capsule PO 100 mg Q12HR BALA Administration Glucagon 1 mg 01/14/23 16:04 Glucagon For Inj 1 Mg Vial IM PRN PRN Hypoglycemia Protocol Glucose 15 gm 01/14/23 16:04 Glucose Oral Gel 15 Gm Of Glucse In 37.5 Gm Tube PO PRN PRN Hypoglycemia Protocol Dextrose 1,000 mls @ 100 mls/hr 01/14/23 16:04 Dextrose 5% 1,000 Ml IVPB PRN PRN Hypoglycemia Protocol Insulin Aspart 2 - 5 units 01/14/23 17:00 01/20/23 08:43 Insulin Aspart (*Bkc) 100 Units/Ml SUB-Q Not G
[2023-01-20 12:01] LABS: Glucose Point of Care 154 mg/dl (65-105)
--- NOTE | 2023-01-20 16:18 | PM.IMPN ---
Progress Note: A&P Assessment and Plan (1) Sinus bradycardia: Code(s): R00.1 - Bradycardia, unspecified Status: Chronic Assessment and Plan: SINUS BRADYCARDIA WITH SINUS ARRHYTHMIA WITH FIRST DEGREE AV BLOCK POSSIBLE RIGHT VENTRICULAR HYPERTROPHY [SOME/ALL OF: PROMINENT R IN V1, LATE TRANSITION, RAD, TAMELA, SSS] INFERIOR MYOCARDIAL INFARCTION , OF INDETERMINATE AGE [40+ ms Q WAVE AND/OR ST/T ABNORMALITY IN II/aVF] NO PREVIOUS ECG AVAILABLE FOR COMPARISO 01/20/2023 interval history:? 82-year-old female with history of coronary artery disease status post CABG presented with a syncopal episode patient stated there were no prodrome she just fell, patient states she was? on the ground for 30 minutes before she call for help,? however upon arrival EKG showed sinus bradycardia suspect her syncopal episode may be related to bradycardia, seen by incident manager held BB and her HR is trending up, will continue to monitor, echo showed preserved LV function with grade 2 diastolic dysfunction,? and further recommendation to follow,? patient was transferred to IMU.? patient also found to have cellulitis on right dorsum of the foot patient was seen by surgery service and had I&D surgeon suspect infected hematoma, started patient on ceftriaxone, wlll follow up on wound culture, still no growth, will stop abxm ? patient still with difficulty with bearing weight on the foot, on 01/18 patient c/o pain and painful with ROM, RT shoulder,? suspect rotator cuff injury, patient was seen orthopedics, shoulder x-ray was ordered patient will follow up as an outpatine, will encourage to participate in PT, discuss with animal care taker, patient will benefit going to SNF rehab pending insurance authorization, and further recommendation to follow. (2) Recurrent falls while walking: Code(s): R29.6 - Repeated falls Status: Chronic (3) TIA (transient ischemic attack): Code(s): G45.9 - Transient cerebral ischemic attack, unspecified Status: Acute (4) CAD (coronary artery disease): Code(s): I25.10 - Atherosclerotic heart disease of [place] coronary artery without angina pectoris Status: Chronic (5) Type 2 diabetes mellitus: Code(s): E11.9 - Type 2 diabetes mellitus without complications Status: Acute (6) PAD (peripheral artery disease): Code(s): I73.9 - Peripheral vascular disease, unspecified Status: Chronic (7) Essential (primary) hypertension: Code(s): I10 - Essential (primary) hypertension Status: Chronic (8) Obesity (BMI 30-39.9): Code(s): E66.9 - Obesity, unspecified Status: Acute (9) Spinal stenosis, unspecified region other than cervical: Code(s): M48.00 - Spinal stenosis, site unspecified Status: Acute (10) S/P CABG (coronary artery bypass graft): Code(s): Z95.1 - Presence of aortocoronary bypass graft Status: Chronic (11) Gastro-esophageal reflux disease without esophagitis: Code(s): K21.9 - Gastro-esophageal reflux disease without esophagitis Status: Acute Subjective Date/time seen: 01/20/23 16:18 SINUS BRADYCARDIA WITH SINUS ARRHYTHMIA WITH FIRST DEGREE AV BLOCK POSSIBLE RIGHT VENTRICULAR HYPERTROPHY [SOME/ALL OF: PROMINENT R IN V1, LATE TRANSITION, RAD, TAMELA, SSS] INFERIOR MYOCARDIAL INFARCTION , OF INDETERMINATE AGE [40+ ms Q WAVE AND/OR ST/T ABNORMALITY IN II/aVF] NO PREVIOUS ECG AVAILABLE FOR COMPARISO 01/20/2023 interval history:? 82-year-old female with history of coronary artery disease status post CABG presented with a syncopal episode patient stated there were no prodrome she just fell, patient states she was? on the ground for 30 minutes before she call for help,? however upon arrival EKG showed sinus bradycardia suspect her syncopal episode may be related to bradycardia, seen by incident manager held BB and her HR is trending up, will continue to monitor, echo showed preserved LV function with grade 2 diastolic dysfunction,? a
[2023-01-20 17:04] LABS: Glucose Point of Care 131 mg/dl (65-105)
[2023-01-20] MEDS: ASPIRIN 81 MG ENTERIC TABLET PO (20:18)
[2023-01-20 23:10] LABS: Glucose Point of Care 122 mg/dl (65-105)
[2023-01-21] VITALS (8 sets, daily range): BP systolic 137–147; BP diastolic 47–51; PULSE 9–50; RESP 16–22; TEMP 36.3–36.6; O2SAT 91–100
[2023-01-21] MEDS: HYDROcodone/acetaminophen (*CRX) 5-325 MG TABLET 1 TAB PO (05:30)
[2023-01-21] MEDS: LEVOTHYROXINE SODIUM 112 MCG TABLET PO (05:30)
[2023-01-21 06:22] LABS: Hematocrit 25.3 % (37.0-47.0); Hemoglobin 8.1 g/dL (12.0-15.0); Mean Corpuscular Hemoglobin 29.2 pg (26-34); Mean Corpuscular Volume 91.3 fl (80-100); Mean Platelet Volume 10.3 fl (7.4-10.4); Platelet Count Result 170 k/mm3 (150-375); Red Blood Count 2.77 M/mm3 (4.2-5.4); Red Cell Distribution Width 14.3 % (11.5-14.5); White Blood Count 5.6 K/mm3 (4.5-10.0)
[2023-01-21 06:31] LABS: Anion Gap 2 mmol/L (8-16); Blood Urea Nitrogen 20 mg/dL (7-17); Calcium 8.8 mg/dL (8.4-10.2); Carbon Dioxide 28 mmol/L (22-30); Chloride 107 mmol/L (98-107); Estimated CRCL calculation 35 ml/min; Estimated Glomerular Filt Rate 43; Glucose 103 mg/dL (65-110); Magnesium 2.1 mg/dL (1.6-2.3); Potassium 4.2 mmol/L (3.4-5.0); Sodium 137 mmol/L (137-145)
[2023-01-21] MEDS: CLOPIDOGREL BISULFATE 75 MG TABLET PO (08:37)
[2023-01-21] MEDS: LOSARTAN POTASSIUM 25 MG TABLET PO (08:37)
[2023-01-21] MEDS: PANTOPRAZOLE 40 MG TABLET PO (08:37)
[2023-01-21] MEDS: allopurinoL 100 MG TABLET PO (08:37)
[2023-01-21] MEDS: ATORVASTATIN 20 MG TABLET PO (08:37)
[2023-01-21] MEDS: oxyBUTYnin CHLORIDE 5 MG TABLET PO ×2 (08:37→16:16)
[2023-01-21] MEDS: CHOLECALCIFEROL 1,000 UNITS TABLET 2000 UNITS PO (08:37)
[2023-01-21] MEDS: DOCUSATE SODIUM 100 MG CAPSULE PO ×2 (08:37→20:24)
[2023-01-21] MEDS: polyethylene glycoL 3350 17 GM POWD.PACK PO (08:37)
[2023-01-21] MEDS: SILVERGEL (ELTA) 45 ML 1 APPLIC TOPICAL (08:38)
[2023-01-21] MEDS: TOLNAFTATE 1% POWDER 45 GM BTL 1 APPLIC TOPICAL ×2 (08:38→20:25)
[2023-01-21] MEDS: TRIAMCINOLONE ACET 0.1% OINT 15 GM TUBE 1 APPLIC TOPICAL ×2 (08:38→16:17)
[2023-01-21 08:47] LABS: Glucose Point of Care 99 mg/dl (65-105)
--- NOTE | 2023-01-21 11:22 | PCNWS ---
Weekly nutritional screen. Patient is tolerating current diet with adequate intake. No weight loss reported. No nutritional needs at this time.
[2023-01-21 12:11] LABS: Glucose Point of Care 134 mg/dl (65-105)
--- NOTE | 2023-01-21 12:19 | PM.IMPN ---
Progress Note: A&P Assessment and Plan (1) Sinus bradycardia: Code(s): R00.1 - Bradycardia, unspecified Status: Chronic Assessment and Plan: Will need to hold beta-raegan on discharge (2) Recurrent falls while walking: Code(s): R29.6 - Repeated falls Status: Chronic (3) TIA (transient ischemic attack): Code(s): G45.9 - Transient cerebral ischemic attack, unspecified Status: Acute (4) CAD (coronary artery disease): Code(s): I25.10 - Atherosclerotic heart disease of [place] coronary artery without angina pectoris Status: Chronic (5) Type 2 diabetes mellitus: Code(s): E11.9 - Type 2 diabetes mellitus without complications Status: Acute (6) PAD (peripheral artery disease): Code(s): I73.9 - Peripheral vascular disease, unspecified Status: Chronic (7) Essential (primary) hypertension: Code(s): I10 - Essential (primary) hypertension Status: Chronic (8) Obesity (BMI 30-39.9): Code(s): E66.9 - Obesity, unspecified Status: Acute (9) Spinal stenosis, unspecified region other than cervical: Code(s): M48.00 - Spinal stenosis, site unspecified Status: Acute (10) S/P CABG (coronary artery bypass graft): Code(s): Z95.1 - Presence of aortocoronary bypass graft Status: Chronic (11) Gastro-esophageal reflux disease without esophagitis: Code(s): K21.9 - Gastro-esophageal reflux disease without esophagitis Status: Acute Subjective Date/time seen: 01/21/23 12:19 No new complaints Exam Const: General: cooperative, comfortable, no acute distress, alert and awake Orientation/consciousness: patient oriented x3 HENMT: Head: normal to inspection, normocephalic and atraumatic Mouth: Yes Normal oral and palatal mucosa present Eyes: General: appearance normal, both eyes and all related structures Conjunctivae: conjunctivae normal Pupils: Equal, round and reactive pupils present EOM: EOMs intact bilaterally Neck: Neck: normal visual inspection, no lymphadenopathy, supple, nontender and no JVD Carotids: normal carotid upstroke Resp: Effort & Inspection: normal respiratory effort Auscultation: clear to auscultation bilaterally Cardio: Rate: regular rate and bradycardic Rhythm: regular rhythm Heart sounds: S1 normal heart sound present, S2 normal heart sound present, no gallops, Murmur heart sound present systolic soft and no rubs GI: Inspection: non-distended Auscultation: normal bowel sounds Skin: General skin exam: normal color Lesions: no lesions Rashes: no rashes Neuro: General: patient oriented x3, no focal motor deficits and CN's II-XI intact bilaterally Cranial nerves: Yes Equal, round and reactive pupils present, Yes Bilaterally intact EOM present, Yes facial symmetry and Yes Midline tongue present Speech: normal speech Motor exam (neuro): 5/5 motor strength present throughout and Motor abnormalities not present Extrem: General: normal to inspection, no clubbing, cyanosis or edema and edema Right lower extremity: foot (Drainage wound clean, no hematoma or recurrent purulent fluid.) Details: toes with normal ROM, warmth, tendon exam Details: active flexion normal and active extension normal and other ( 6 x 5 cm superficial abscess right instep); no tenderness and no crepitus Psych: Appearance: grossly normal Mental Status: mental status grossly normal Affect: normal affect Thought process: Normal thought process present Insight: Good insight present (Psych) Objective Data Vital Signs Vital Signs: Vital Signs - 24 hr 01/20/23 14:51 01/20/23 16:00 01/20/23 20:11 Temperature 98.3 F 98.1 F Pulse Rate 51 L 51 L 50 L Respiratory Rate 16 16 Blood Pressure 155/58 H 160/57 H Pulse Oximetry 93 98 Oxygen Delivery 01/20/23 22:52 01/20/23 20:00 01/20/23 20:00 Temperature 97.5 F L Pulse Rate 47 L 53 L 53 L Respiratory Rate 18 18 Blood Pressure 155/55 H Pulse Oxim
[2023-01-21 16:57] LABS: Glucose Point of Care 167 mg/dl (65-105)
[2023-01-21] MEDS: ASPIRIN 81 MG ENTERIC TABLET PO (20:24)
[2023-01-21 20:36] LABS: Glucose Point of Care 159 mg/dl (65-105)
[2023-01-22] MEDS: LEVOTHYROXINE SODIUM 112 MCG TABLET PO (05:44)
[2023-01-22 05:45] VITALS: BP 150/45; PULSE 95; RESP 16; TEMP 36.4; O2SAT 95
[2023-01-22 06:00] LABS: Hematocrit 25.2 % (37.0-47.0); Mean Corpuscular HGB Conc 31.7 g/dl (32-36); Mean Corpuscular Hemoglobin 29.3 pg (26-34); Mean Corpuscular Volume 92.3 fl (80-100); Mean Platelet Volume 10.1 fl (7.4-10.4); Platelet Count Result 212 k/mm3 (150-375); Red Blood Count 2.73 M/mm3 (4.2-5.4); Red Cell Distribution Width 14.3 % (11.5-14.5); White Blood Count 5.9 K/mm3 (4.5-10.0)
[2023-01-22 06:15] LABS: Anion Gap 2 mmol/L (8-16); Blood Urea Nitrogen 23 mg/dL (7-17); Calcium 8.9 mg/dL (8.4-10.2); Carbon Dioxide 27 mmol/L (22-30); Chloride 108 mmol/L (98-107); Estimated CRCL calculation 38 ml/min; Estimated Glomerular Filt Rate 48; Glucose 94 mg/dL (65-110); Magnesium 2.1 mg/dL (1.6-2.3); Potassium 4.4 mmol/L (3.4-5.0); Sodium 137 mmol/L (137-145)
[2023-01-22] MEDS: polyethylene glycoL 3350 17 GM POWD.PACK PO (08:08)
[2023-01-22] MEDS: TOLNAFTATE 1% POWDER 45 GM BTL 1 APPLIC TOPICAL ×2 (08:08→20:58)
[2023-01-22] MEDS: DOCUSATE SODIUM 100 MG CAPSULE PO ×2 (08:08→20:58)
[2023-01-22] MEDS: SILVERGEL (ELTA) 45 ML 1 APPLIC TOPICAL (08:09)
[2023-01-22] MEDS: CLOPIDOGREL BISULFATE 75 MG TABLET PO (08:09)
[2023-01-22] MEDS: oxyBUTYnin CHLORIDE 5 MG TABLET PO ×2 (08:09→16:33)
[2023-01-22] MEDS: PANTOPRAZOLE 40 MG TABLET PO (08:09)
[2023-01-22] MEDS: LOSARTAN POTASSIUM 25 MG TABLET PO (08:09)
[2023-01-22] MEDS: CHOLECALCIFEROL 1,000 UNITS TABLET 2000 UNITS PO (08:09)
[2023-01-22] MEDS: allopurinoL 100 MG TABLET PO (08:09)
[2023-01-22] MEDS: TRIAMCINOLONE ACET 0.1% OINT 15 GM TUBE 1 APPLIC TOPICAL ×2 (08:09→16:33)
[2023-01-22] MEDS: ATORVASTATIN 20 MG TABLET PO (08:10)
[2023-01-22 08:31] LABS: Glucose Point of Care 114 mg/dl (65-105)
--- NOTE | 2023-01-22 09:00 | PCPTNOTE ---
Attempted to see patient for PT, however patient was eating breakfast.
--- NOTE | 2023-01-22 11:10 | PM.IMPN ---
Progress Note: A&P Assessment and Plan (1) Sinus bradycardia: Code(s): R00.1 - Bradycardia, unspecified Status: Chronic Assessment and Plan: Will need to hold beta-raegan on discharge (2) Recurrent falls while walking: Code(s): R29.6 - Repeated falls Status: Chronic (3) TIA (transient ischemic attack): Code(s): G45.9 - Transient cerebral ischemic attack, unspecified Status: Acute (4) CAD (coronary artery disease): Code(s): I25.10 - Atherosclerotic heart disease of [place] coronary artery without angina pectoris Status: Chronic (5) Type 2 diabetes mellitus: Code(s): E11.9 - Type 2 diabetes mellitus without complications Status: Acute (6) PAD (peripheral artery disease): Code(s): I73.9 - Peripheral vascular disease, unspecified Status: Chronic (7) Essential (primary) hypertension: Code(s): I10 - Essential (primary) hypertension Status: Chronic (8) Obesity (BMI 30-39.9): Code(s): E66.9 - Obesity, unspecified Status: Acute (9) Spinal stenosis, unspecified region other than cervical: Code(s): M48.00 - Spinal stenosis, site unspecified Status: Acute (10) S/P CABG (coronary artery bypass graft): Code(s): Z95.1 - Presence of aortocoronary bypass graft Status: Chronic (11) Gastro-esophageal reflux disease without esophagitis: Code(s): K21.9 - Gastro-esophageal reflux disease without esophagitis Status: Acute Subjective Date/time seen: 01/22/23 11:10 no new complaints Exam Const: General: cooperative, comfortable, no acute distress, alert and awake Orientation/consciousness: patient oriented x3 HENMT: Head: normal to inspection, normocephalic and atraumatic Mouth: Yes Normal oral and palatal mucosa present Eyes: General: appearance normal, both eyes and all related structures Conjunctivae: conjunctivae normal Pupils: Equal, round and reactive pupils present EOM: EOMs intact bilaterally Neck: Neck: normal visual inspection, no lymphadenopathy, supple, nontender and no JVD Carotids: normal carotid upstroke Resp: Effort & Inspection: normal respiratory effort Auscultation: clear to auscultation bilaterally Cardio: Rate: regular rate and bradycardic Rhythm: regular rhythm Heart sounds: S1 normal heart sound present, S2 normal heart sound present, no gallops, Murmur heart sound present systolic soft and no rubs GI: Inspection: non-distended Auscultation: normal bowel sounds Skin: General skin exam: normal color Lesions: no lesions Rashes: no rashes Neuro: General: patient oriented x3, no focal motor deficits and CN's II-XI intact bilaterally Cranial nerves: Yes Equal, round and reactive pupils present, Yes Bilaterally intact EOM present, Yes facial symmetry and Yes Midline tongue present Speech: normal speech Motor exam (neuro): 5/5 motor strength present throughout and Motor abnormalities not present Extrem: General: normal to inspection, no clubbing, cyanosis or edema and edema Right lower extremity: foot (Drainage wound clean, no hematoma or recurrent purulent fluid.) Details: toes with normal ROM, warmth, tendon exam Details: active flexion normal and active extension normal and other ( 6 x 5 cm superficial abscess right instep); no tenderness and no crepitus Psych: Appearance: grossly normal Mental Status: mental status grossly normal Affect: normal affect Thought process: Normal thought process present Insight: Good insight present (Psych) Objective Data Vital Signs Vital Signs: Vital Signs - 24 hr 01/21/23 12:00 01/21/23 15:01 01/21/23 21:48 Temperature 97.3 F L 97.7 F Pulse Rate 9 L 45 L 50 L Respiratory Rate 18 16 Blood Pressure 147/47 H 146/51 H Pulse Oximetry 95 100 Oxygen Delivery 01/21/23 20:00 01/22/23 05:45 01/22/23 08:00 Temperature 97.6 F Pulse Rate 50 L 95 Respiratory Rate 16 16 Blood Pressure 150/45 H Pulse Oximetry 1
[2023-01-22 12:17] LABS: Glucose Point of Care 117 mg/dl (65-105)
[2023-01-22 14:14] VITALS: BP 161/45; PULSE 50; RESP 17; TEMP 36.3; O2SAT 93
[2023-01-22 16:49] LABS: Glucose Point of Care 117 mg/dl (65-105)
[2023-01-22 20:00] VITALS: PULSE 53; RESP 18; O2SAT 98
[2023-01-22] MEDS: ASPIRIN 81 MG ENTERIC TABLET PO (20:58)
[2023-01-22 21:31] VITALS: BP 158/50; PULSE 53; RESP 18; TEMP 35.7; O2SAT 98
[2023-01-23 04:06] VITALS: BP 152/48; PULSE 52; RESP 18; TEMP 36.2; O2SAT 97
[2023-01-23 06:08] LABS: Hemoglobin 7.7 g/dL (12.0-15.0); Mean Corpuscular HGB Conc 32.1 g/dl (32-36); Mean Corpuscular Hemoglobin 28.7 pg (26-34); Mean Corpuscular Volume 89.6 fl (80-100); Mean Platelet Volume 9.9 fl (7.4-10.4); Platelet Count Result 214 k/mm3 (150-375); Red Blood Count 2.68 M/mm3 (4.2-5.4); Red Cell Distribution Width 14.2 % (11.5-14.5); White Blood Count 6.2 K/mm3 (4.5-10.0)
[2023-01-23 06:24] LABS: Anion Gap 1 mmol/L (8-16); Blood Urea Nitrogen 21 mg/dL (7-17); Carbon Dioxide 28 mmol/L (22-30); Chloride 106 mmol/L (98-107); Estimated CRCL calculation 32 ml/min; Estimated Glomerular Filt Rate 39; Glucose 91 mg/dL (65-110); Magnesium 2.1 mg/dL (1.6-2.3); Potassium 4.2 mmol/L (3.4-5.0); Sodium 135 mmol/L (137-145)
[2023-01-23] MEDS: LEVOTHYROXINE SODIUM 112 MCG TABLET PO (06:28)
[2023-01-23 08:04] VITALS: BP 150/57
[2023-01-23] MEDS: ATORVASTATIN 20 MG TABLET PO (08:06)
[2023-01-23] MEDS: allopurinoL 100 MG TABLET PO (08:06)
[2023-01-23] MEDS: CHOLECALCIFEROL 1,000 UNITS TABLET 2000 UNITS PO (08:06)
[2023-01-23] MEDS: LOSARTAN POTASSIUM 25 MG TABLET PO (08:07)
[2023-01-23] MEDS: CLOPIDOGREL BISULFATE 75 MG TABLET PO (08:07)
[2023-01-23] MEDS: PANTOPRAZOLE 40 MG TABLET PO (08:07)
[2023-01-23] MEDS: oxyBUTYnin CHLORIDE 5 MG TABLET PO ×2 (08:07→16:30)
[2023-01-23] MEDS: polyethylene glycoL 3350 17 GM POWD.PACK PO (08:08)
[2023-01-23] MEDS: DOCUSATE SODIUM 100 MG CAPSULE PO ×2 (08:10→20:39)
[2023-01-23 08:24] LABS: Glucose Point of Care 99 mg/dl (65-105)
[2023-01-23] MEDS: SILVERGEL (ELTA) 45 ML 1 APPLIC TOPICAL (10:23)
[2023-01-23] MEDS: TOLNAFTATE 1% POWDER 45 GM BTL 1 APPLIC TOPICAL ×2 (10:23→20:37)
--- NOTE | 2023-01-23 10:32 | PM.PNGS ---
Progress Note: A&P Assessment and Plan (1) Abscess of right foot excluding toes: Code(s): L02.611 - Cutaneous abscess of right foot Status: Acute Assessment and Plan: Abscess resolved. Now has open wound on dorsum of right foot which is healing slowly. Continue silver gel and Band-Aid to wound daily. Okay to wash the wound with soap and water when patient is bathing. If patient able to be discharged, discharge instructions for this wound are already in the chart. Subjective Subjective Date/Time Seen: 01/23/23 10:32 Patient reports: no new complaints Exam Extrem: Right lower extremity: foot (Right instep wound clean and healing. Redressed with silver gel & Band-Aid) Objective Data Vital Signs Vital Signs: Vital Signs - 24 hr 01/22/23 14:14 01/22/23 21:31 01/22/23 20:00 Temperature 36.3 C L 35.7 C L Pulse Rate 50 L 53 L 53 L Respiratory Rate 17 18 18 Blood Pressure 161/45 H 158/50 H Pulse Oximetry 93 98 98 Oxygen Delivery Room Air 01/23/23 04:06 01/23/23 08:04 Temperature 36.2 C L Pulse Rate 52 L Respiratory Rate 18 Blood Pressure 152/48 H 150/57 H Pulse Oximetry 97 Oxygen Delivery Intake/Output Intake/Output: Intake & Output 01/20/23 01/21/23 01/22/23 01/23/23 23:59 23:59 23:59 23:59 Intake Total 1100 1100 1450 240 Output Total 400 2100 600 Balance 700 1100 -650 -360 Meds/Results Medications: Active Medications Generic Name Dose Route Start Last Admin Trade Name Freq PRN Reason Stop Dose Admin Acetaminophen 500 mg 01/15/23 17:29 Acetaminophen 500 Mg Tablet PO Q6H PRN Mild Pain (1-3) or Fever Hydrocodone Bitart/Acetaminophen 1 tab 01/15/23 17:29 01/21/23 05:30 Hydrocodone/Acetaminophen (*Crx) 5-325 Mg Tablet PO 1 tab Q4H PRN Administration Pain Rated 4-6 Allopurinol 100 mg 01/15/23 08:00 01/23/23 08:06 Allopurinol 100 Mg Tablet PO 100 mg DAILY@0800 BALA Administration Aspirin 81 mg 01/14/23 21:00 01/22/23 20:58 Aspirin 81 Mg Enteric Tablet PO 81 mg HS BALA Administration Atorvastatin Calcium 20 mg 01/15/23 09:00 01/23/23 08:06 Atorvastatin 20 Mg Tablet PO 20 mg DAILY BALA Administration Azelastine HCl 2 spray 01/14/23 15:49 Azelastine Hcl Nasal 0.1% 137 Mcg/Spr 30 Ml Btl NASAL BID PRN Allergy Symptoms Clopidogrel Bisulfate 75 mg 01/15/23 09:00 01/23/23 08:07 Clopidogrel Bisulfate 75 Mg Tablet PO 75 mg DAILY BALA Administration Dextrose 12.5 gm 01/14/23 16:04 Dextrose 50% 25 Gm/50 Ml Syringe IV PUSH PRN PRN Hypoglycemia Protocol Docusate Sodium 100 mg 01/19/23 12:25 01/23/23 08:10 Docusate Sodium 100 Mg Capsule PO 100 mg Q12HR BALA Administration Glucagon 1 mg 01/14/23 16:04 Glucagon For Inj 1 Mg Vial IM PRN PRN Hypoglycemia Protocol Glucose 15 gm 01/14/23 16:04 Glucose Oral Gel 15 Gm Of Glucse In 37.5 Gm Tube PO PRN PRN Hypoglycemia Protocol Dextrose 1,000 mls @ 100 mls/hr 01/14/23 16:04 Dextrose 5% 1,000 Ml IVPB PRN PRN Hypoglycemia Protocol Insulin Aspart 2 - 5 units 01/14/23 17:00 01/23/23 08:30 Insulin Aspart (*Bkc) 100 Units/Ml SUB-Q Not Given TIDWM BALA Protocol Levothyroxine Sodium 112 mcg 01/15/23 06:30 01/23/23 06:28 Levothyroxine Sodium 112 Mcg Tablet PO 112 mcg DAILY@0630 BLAA Administration Losartan Potassium 25 mg 01/15/23 09:00 01/23/23 08:07 Losartan Potassium 25 Mg Tablet PO 25 mg DAILY BALA Administration Morphine Sulfate 2 mg 01/15/23 17:29 Morphine Sulfate (*Crx) 2 Mg/Ml Inj IV PUSH Q2H PRN Pain Rated 7-10 Oxybutynin Chloride 5 mg 01/16/23 17:00 01/23/23 08:07 Oxybutynin Chloride 5 Mg Tablet PO 5 mg BID BALA Administration Pantoprazole Sodium 40 mg 01/15/23 09:00 01/23/23 08:07 Pantoprazole 40 Mg Tablet PO 40 mg QAM BALA Administration Polyethylene Glycol 17 gm 03
--- NOTE | 2023-01-23 12:01 | PM.IMPN ---
Progress Note: A&P Assessment and Plan (1) Sinus bradycardia: Code(s): R00.1 - Bradycardia, unspecified Status: Chronic Assessment and Plan: Will need to hold beta-raegan on discharge (2) Recurrent falls while walking: Code(s): R29.6 - Repeated falls Status: Chronic (3) TIA (transient ischemic attack): Code(s): G45.9 - Transient cerebral ischemic attack, unspecified Status: Acute (4) CAD (coronary artery disease): Code(s): I25.10 - Atherosclerotic heart disease of [place] coronary artery without angina pectoris Status: Chronic (5) Type 2 diabetes mellitus: Code(s): E11.9 - Type 2 diabetes mellitus without complications Status: Acute (6) PAD (peripheral artery disease): Code(s): I73.9 - Peripheral vascular disease, unspecified Status: Chronic (7) Essential (primary) hypertension: Code(s): I10 - Essential (primary) hypertension Status: Chronic (8) Obesity (BMI 30-39.9): Code(s): E66.9 - Obesity, unspecified Status: Acute (9) Spinal stenosis, unspecified region other than cervical: Code(s): M48.00 - Spinal stenosis, site unspecified Status: Acute (10) S/P CABG (coronary artery bypass graft): Code(s): Z95.1 - Presence of aortocoronary bypass graft Status: Chronic (11) Gastro-esophageal reflux disease without esophagitis: Code(s): K21.9 - Gastro-esophageal reflux disease without esophagitis Status: Acute Subjective Date/time seen: 01/23/23 12:01 No new issues Exam Const: General: cooperative, comfortable, no acute distress, alert and awake Orientation/consciousness: patient oriented x3 HENMT: Head: normal to inspection, normocephalic and atraumatic Mouth: Yes Normal oral and palatal mucosa present Eyes: General: appearance normal, both eyes and all related structures Conjunctivae: conjunctivae normal Pupils: Equal, round and reactive pupils present EOM: EOMs intact bilaterally Neck: Neck: normal visual inspection, no lymphadenopathy, supple, nontender and no JVD Carotids: normal carotid upstroke Resp: Effort & Inspection: normal respiratory effort Auscultation: clear to auscultation bilaterally Cardio: Rate: regular rate and bradycardic Rhythm: regular rhythm Heart sounds: S1 normal heart sound present, S2 normal heart sound present, no gallops, Murmur heart sound present systolic soft and no rubs GI: Inspection: non-distended Auscultation: normal bowel sounds Skin: General skin exam: normal color Lesions: no lesions Rashes: no rashes Neuro: General: patient oriented x3, no focal motor deficits and CN's II-XI intact bilaterally Cranial nerves: Yes Equal, round and reactive pupils present, Yes Bilaterally intact EOM present, Yes facial symmetry and Yes Midline tongue present Speech: normal speech Motor exam (neuro): 5/5 motor strength present throughout and Motor abnormalities not present Extrem: General: normal to inspection, no clubbing, cyanosis or edema and edema Right lower extremity: foot (Drainage wound clean, no hematoma or recurrent purulent fluid.) Details: toes with normal ROM, warmth, tendon exam Details: active flexion normal and active extension normal and other ( 6 x 5 cm superficial abscess right instep); no tenderness and no crepitus Psych: Appearance: grossly normal Mental Status: mental status grossly normal Affect: normal affect Thought process: Normal thought process present Insight: Good insight present (Psych) Objective Data Vital Signs Vital Signs: Vital Signs - 24 hr 01/22/23 14:14 01/22/23 21:31 01/22/23 20:00 Temperature 97.3 F L 96.3 F L Pulse Rate 50 L 53 L 53 L Respiratory Rate 17 18 18 Blood Pressure 161/45 H 158/50 H Pulse Oximetry 93 98 98 Oxygen Delivery Room Air 01/23/23 04:06 01/23/23 08:04 01/23/23 07:55 Temperature 97.2 F L Pulse Rate 52 L Respiratory Rate 18 Blood Pressure 152/48 H 150/57 H
[2023-01-23 12:24] LABS: Glucose Point of Care 112 mg/dl (65-105)
[2023-01-23] MEDS: TRIAMCINOLONE ACET 0.1% OINT 15 GM TUBE 1 APPLIC TOPICAL ×2 (12:57→18:33)
[2023-01-23 14:20] VITALS: BP 150/40; PULSE 47; RESP 17; TEMP 36.2; O2SAT 97
[2023-01-23 17:11] LABS: Glucose Point of Care 153 mg/dl (65-105)
[2023-01-23 20:00] VITALS: PULSE 50; RESP 16; O2SAT 95
[2023-01-23 20:29] VITALS: BP 177/53; PULSE 50; RESP 16; TEMP 36.2; O2SAT 95
[2023-01-23 20:35] LABS: Glucose Point of Care 174 mg/dl (65-105)
[2023-01-23] MEDS: ASPIRIN 81 MG ENTERIC TABLET PO (20:37)
[2023-01-24 05:33] LABS: Hematocrit 24.3 % (37.0-47.0); Hemoglobin 7.8 g/dL (12.0-15.0); Mean Corpuscular HGB Conc 32.1 g/dl (32-36); Mean Corpuscular Hemoglobin 28.7 pg (26-34); Mean Corpuscular Volume 89.3 fl (80-100); Mean Platelet Volume 9.6 fl (7.4-10.4); Platelet Count Result 231 k/mm3 (150-375); Red Blood Count 2.72 M/mm3 (4.2-5.4); Red Cell Distribution Width 14.5 % (11.5-14.5)
[2023-01-24] MEDS: LEVOTHYROXINE SODIUM 112 MCG TABLET PO (05:44)
[2023-01-24 05:55] LABS: Anion Gap 3 mmol/L (8-16); Blood Urea Nitrogen 21 mg/dL (7-17); Calcium 9.1 mg/dL (8.4-10.2); Carbon Dioxide 28 mmol/L (22-30); Chloride 104 mmol/L (98-107); Estimated CRCL calculation 32 ml/min; Estimated Glomerular Filt Rate 39; Glucose 99 mg/dL (65-110); Magnesium 2.1 mg/dL (1.6-2.3); Potassium 4.3 mmol/L (3.4-5.0); Sodium 135 mmol/L (137-145)
[2023-01-24 06:00] VITALS: BP 176/79; PULSE 52; RESP 20; TEMP 36.3; O2SAT 96
[2023-01-24] MEDS: allopurinoL 100 MG TABLET PO (08:44)
[2023-01-24] MEDS: ATORVASTATIN 20 MG TABLET PO (08:44)
[2023-01-24] MEDS: CLOPIDOGREL BISULFATE 75 MG TABLET PO (08:45)
[2023-01-24] MEDS: CHOLECALCIFEROL 1,000 UNITS TABLET 2000 UNITS PO (08:45)
[2023-01-24] MEDS: TOLNAFTATE 1% POWDER 45 GM BTL 1 APPLIC TOPICAL (08:46)
[2023-01-24] MEDS: PANTOPRAZOLE 40 MG TABLET PO (08:46)
[2023-01-24] MEDS: oxyBUTYnin CHLORIDE 5 MG TABLET PO (08:46)
[2023-01-24] MEDS: LOSARTAN POTASSIUM 25 MG TABLET PO (08:46)
[2023-01-24] MEDS: DOCUSATE SODIUM 100 MG CAPSULE PO (08:49)
[2023-01-24] MEDS: polyethylene glycoL 3350 17 GM POWD.PACK PO (08:50)
[2023-01-24 08:53] LABS: Glucose Point of Care 106 mg/dl (65-105)
--- NOTE | 2023-01-24 10:04 | PM.DS ---
DS: Admitting Diagnosis Discharge Date January 24, 2023 Admitting Diagnosis Falls, foot wound DS: Discharge Diagnosis Discharge Diagnosis (1) Sinus bradycardia: Code(s): R00.1 - Bradycardia, unspecified Status: Chronic (2) Recurrent falls while walking: Code(s): R29.6 - Repeated falls Status: Chronic (3) TIA (transient ischemic attack): Code(s): G45.9 - Transient cerebral ischemic attack, unspecified Status: Acute (4) CAD (coronary artery disease): Code(s): I25.10 - Atherosclerotic heart disease of [place] coronary artery without angina pectoris Status: Chronic (5) Type 2 diabetes mellitus: Code(s): E11.9 - Type 2 diabetes mellitus without complications Status: Acute (6) PAD (peripheral artery disease): Code(s): I73.9 - Peripheral vascular disease, unspecified Status: Chronic (7) Essential (primary) hypertension: Code(s): I10 - Essential (primary) hypertension Status: Chronic (8) Obesity (BMI 30-39.9): Code(s): E66.9 - Obesity, unspecified Status: Acute (9) Spinal stenosis, unspecified region other than cervical: Code(s): M48.00 - Spinal stenosis, site unspecified Status: Acute (10) S/P CABG (coronary artery bypass graft): Code(s): Z95.1 - Presence of aortocoronary bypass graft Status: Chronic (11) Gastro-esophageal reflux disease without esophagitis: Code(s): K21.9 - Gastro-esophageal reflux disease without esophagitis Status: Acute DS: Summary Hospital Course Hospital Course: Patient was admitted for frequent falls. Also noted to have bradycardia. Beta-raegan will be on hold for discharge. Also noted that she had a abscess on her foot that can be maintained with wound care on discharge. Patient is otherwise doing well and can be discharged to facility. Time Spent with Patient Time attestation: Total time spent providing and/or coordinating discharge services: Exam Const: General: cooperative, comfortable, no acute distress, alert and awake Orientation/consciousness: patient oriented x3 HENMT: Head: normal to inspection, normocephalic and atraumatic Mouth: Yes Normal oral and palatal mucosa present Eyes: General: appearance normal, both eyes and all related structures Conjunctivae: conjunctivae normal Pupils: Equal, round and reactive pupils present EOM: EOMs intact bilaterally Neck: Neck: normal visual inspection, no lymphadenopathy, supple, nontender and no JVD Carotids: normal carotid upstroke Resp: Effort & Inspection: normal respiratory effort Auscultation: clear to auscultation bilaterally Cardio: Rate: regular rate and bradycardic Rhythm: regular rhythm Heart sounds: S1 normal heart sound present, S2 normal heart sound present, no gallops, Murmur heart sound present systolic soft and no rubs GI: Inspection: non-distended Auscultation: normal bowel sounds Skin: General skin exam: normal color Lesions: no lesions Rashes: no rashes Neuro: General: patient oriented x3, no focal motor deficits and CN's II-XI intact bilaterally Cranial nerves: Yes Equal, round and reactive pupils present, Yes Bilaterally intact EOM present, Yes facial symmetry and Yes Midline tongue present Speech: normal speech Motor exam (neuro): 5/5 motor strength present throughout and Motor abnormalities not present Extrem: General: normal to inspection, no clubbing, cyanosis or edema and edema Right lower extremity: foot (Drainage wound clean, no hematoma or recurrent purulent fluid.) Details: toes with normal ROM, warmth, tendon exam Details: active flexion normal and active extension normal and other ( 6 x 5 cm superficial abscess right instep); no tenderness and no crepitus Psych: Appearance: grossly normal Mental Status: mental status grossly normal Affect: normal affect Thought process: Normal thought process present Insight: Good insight present (Psych) DS: Data Data Complet
[2023-01-24] MEDS: TRIAMCINOLONE ACET 0.1% OINT 15 GM TUBE 1 APPLIC TOPICAL (10:42)
[2023-01-24] MEDS: SILVERGEL (ELTA) 45 ML 1 APPLIC TOPICAL (10:43)
[2023-01-24 12:14] LABS: Glucose Point of Care 133 mg/dl (65-105)
[2023-01-24 12:14] LABS: Glucose Point of Care 140 mg/dl (65-105)
[2023-01-24 13:52] LABS: EDCOVIDSCREEN Negative (Negative)
--- NOTE | 2023-01-24 14:53 | PC.NURSE ---
Patient was to be discharged with a prescription for hydrocodone 5mg - acetaminophen 325mg. Prescription was written by Dr. Sargent on 01/19/23. Provider currently not in the facility to sign prescription. Current hospitalist notified and stated patient hasn't been requiring the medication and will discontinue the order. The printed prescription was voided with sharpie and placed in the shred bin with charge nurse BREANA Mcclelland as a witness.
== END 2023-01-24 16:11 | DRG 309 ==
LOC: ANHED 20:43 → ANH3MED 01-14 01:30 → ANHIMU 01-15 12:05 → ANH2MED 01-19 13:57 → ANH3MED 01-27 11:05 → ANHIMU 01-27 11:05
PROVIDERS: Family Medicine; Internal Medicine Cardiovascular Disease; Surgery; Admitting Provider Internal Medicine; Emergency Provider Emergency Medicine; PCP Internal Medicine; Visit Provider Chiropractor
PROC: 0Y9M0ZZ Drainage of Right Foot, Open Approach (ICD-10-PCS; principal; 2023-01-15 16:00)
DX: R00.1 Bradycardia, unspecified (principal); G45.9 Transient cerebral ischemic attack, unspecified; L02.611 Cutaneous abscess of right foot; R29.6 Repeated falls; I25.10 Atherosclerotic heart disease of native coronary artery without angina pectoris; S90.31XA Contusion of right foot, initial encounter; W18.30XA Fall on same level, unspecified, initial encounter; I73.9 Peripheral vascular disease, unspecified; M25.511 Pain in right shoulder; I10 Essential (primary) hypertension; E66.9 Obesity, unspecified; M48.00 Spinal stenosis, site unspecified; K21.9 Gastro-esophageal reflux disease without esophagitis; E11.9 Type 2 diabetes mellitus without complications; E03.9 Hypothyroidism, unspecified; Z96.659 Presence of unspecified artificial knee joint; Z20.822 Contact with and (suspected) exposure to COVID-19; Z68.39 Body mass index [BMI] 39.0-39.9, adult; Z95.1 Presence of aortocoronary bypass graft; Z90.49 Acquired absence of other specified parts of digestive tract; Z79.02 Long term (current) use of antithrombotics/antiplatelets; Z79.82 Long term (current) use of aspirin
CPT/HCPCS: 36415; 51701; 70450; 71045; 72100; 72125; 73030; 73620; 80048; 80053; 81001; 82948; 83735; 83880; 84443; 84484; 85025; 85027; 85055; 85610; 85730; 87070; 87075; 87205; 87426; 87637; 93005; 93306; 94762; 96361; 96374; 97110; 97162; 97165; 97530; 97535; 99285; A9270; C9803; J0131; J0330; J0690; J0696; J1040; J2704; J3010; J7030; J7120

== ENCOUNTER 2023-02-05 10:09 | Inpatient (IN) | payer MEDICARE, SELFPAY ==
[2023-02-05] VITALS (18 sets, daily range): BP systolic 101–147; BP diastolic 46–75; PULSE 50–96; RESP 12–18; TEMP 36.2–37.4; O2SAT 89–100; BMI 38.2
--- NOTE | ~2023-02-05 | CT_ITS ---
EXAMINATION: CTA chest PE protocol DATE: 02/05/2023 11:56 INDICATION: Hypoxia and shortness of breath TECHNIQUE: Computed tomography angiography (CTA) of the chest was performed with 100 mL Omnipaque-350 intravenous contrast timed to evaluate the pulmonary arteries. Coronal maximum intensity projection 3D-reconstructions were created by the technologist. The dose-length product (DLP) was 818.13 mGy-cm. Automated exposure control and iterative reconstruction technique were employed. COMPARISON: None. FINDINGS: Respiratory motion artifact moderately limits sensitivity for pulmonary emboli. The pulmona ry arteries are well-opacified. No pulmonary embolism is identified. There are small pleural effusion s. There are minimal dependent airspace opacities of the lungs. Cardiomegaly is noted. There is no pn eumothorax. No pathologically enlarged thoracic lymph nodes are identified. There is severe thoracic spondylosis. Changes of coronary artery bypass grafting are noted. IMPRESSION: 1. No pulmonary embolism or acute cardiopulmonary abnormality, sensitivity limited by respiratory mot ion artifact. 2. Cardiomegaly. 3. Small pleural effusions. 4. Bilateral dependent airspace opacities, consistent with atelectasis an/or pneumonia. Reviewed, dictated and finalized at location L. IMPRESSION: 1. No pulmonary embolism or acute cardiopulmonary abnormality, sensitivity limi tino by respiratory motion artifact. 2. Cardiomegaly. 3. Small pleural effusions. 4. Bilateral dependent airspace opacities, consistent with atelectasis an/or pn eumonia.
--- NOTE | 2023-02-05 10:25 | ECG_ITS ---
Measurements Intervals [place] Rate: 76 P: 67 MA: 196 QRS: 96 QRSD: 102 T: -5 QT: 415 QTc: 469 Interpretive Statements SINUS RHYTHM RIGHT AXIS DEVIATION NONSPECIFIC ST & T-WAVE ABNORMALITY- INF/LAT LEADS BASELINE ARTIFACT- V1-V5 BORDERLINE ECG COMPARED TO ECG 01/16/2023 11:17:36 SINUS [address]THM NOW PRESENT ST-T WAVE ABNORMALITY NOW PRESENT Electronically Signed On 02-05-2023 11:52:02 CDT by Tino Hong D.O.
--- NOTE | 2023-02-05 10:40 | ED.SOB ---
HPI - SOB/Dyspnea General Chief Complaint: Shortness of Breath/Dyspnea <Eva Phillips PA-C - Last Filed: 02/05/23 17:01> Stated Complaint: low O2/ DYSPNEA <Eva Phillips PA-C - Last Filed: 02/05/23 17:01> Time Seen by Provider: 02/05/23 10:14 <Eva Phillips PA-C - Last Filed: 02/05/23 17:01> History of Present Illness HPI Narrative: Patient is an 82-year-old female recently hospitalized here in setting of frequent falls, TIA, right foot infection, history of CAD s/p 3 vessel CABG here from her nursing facility due to shortness of breath. Reportedly patient's roommate at her nursing facility tested positive for COVID, shortly afterwards patient began feeling short of breath and was noted to have a new oxygen requirement. Patient is alert and oriented, states that she feels worn out , short of breath, having a mild discomfort in her chest. + leg swelling, patient states is chronic. No history of O2 requirement. No fevers or chills, nausea or vomiting. <Eva Phillips PA-C - Last Filed: 02/05/23 17:01> Related Data Home Medications: Home Medications Medication Instructions Recorded Confirmed aspirin 81 mg tablet,delayed 81 mg PO HS 03/26/20 02/18/23 release (Adult Low Dose Aspirin) atorvastatin 20 mg tablet 20 mg PO HS 03/26/20 02/18/23 lancets (Microlet Lancet) #50 ea 03/26/20 02/18/23 losartan 25 mg tablet 25 mg PO DAILY 03/26/20 02/18/23 cholecalciferol (vitamin D3) 50 50 mcg PO DAILY 10/17/21 02/18/23 mcg (2,000 unit) tablet (Vitamin D3) clopidogrel 75 mg tablet 75 mg PO DAILY 10/17/21 02/18/23 furosemide 40 mg tablet 20 mg PO DAILY 10/17/21 02/18/23 azelastine 205.5 mcg (0.15 %) 2 spray intranasal BID PRN Allergy 10/18/22 02/18/23 nasal spray Symptoms omeprazole 40 mg capsule,delayed 40 mg PO DAILY 01/14/23 02/18/23 release triamcinolone acetonide 0.1 % 1 applic topical BID 01/14/23 02/18/23 topical ointment acetaminophen 650 mg tablet 650 mg PO Q6H PRN Pain 02/05/23 02/18/23 cyanocobalamin (vitamin B-12) 1,000 mcg IM DIRECTED 02/05/23 02/18/23 1,000 mcg/mL injection solution ferrous sulfate 325 mg (65 mg 325 mg PO BID 02/05/23 02/18/23 iron) tablet hydrocortisone 1 % topical cream 1 applic topical BID 02/05/23 02/18/23 levothyroxine 125 mcg tablet 125 mcg PO DAILY 02/05/23 02/18/23 spironolactone 25 mg tablet 25 mg PO BID 02/05/23 02/18/23 <JOS Spencer Last Filed: 02/05/23 17:01> Allergies/Adverse Reactions: Allergies Allergy/AdvReac Type Severity Reaction Status Date / Time lisinopril Allergy Intermediate Difficulty Verified 01/07/23 15:21 Breathing <JOS Spencer Last Filed: 02/05/23 17:01> Review of Systems Review of Systems: Gen: Reports fatigue. Denies fevers or chills Eyes: Denies eye pain or visual change ENT: Denies congestion Respiratory: Reports shortness of breath CV: Denies chest pain or palpitations GI: Denies abdominal pain nausea, emesis or diarrhea denies burning, urgency, frequency or hematuria Musculoskeletal: Denies back pain or muscle pain Neuro: Denies numbness, tingling, weakness or focal weakness Skin: Denies rash Except as documented, all other systems reviewed and negative <JOS Spencer Last Filed: 02/05/23 17:01> [facility] Past Medical History Medical History: Medical History (Updated 02/05/23 @ 17:21 by Jesusita Linda NP) CAD (coronary artery disease) Cataract Cholecystitis with cholelithiasis Congestive heart failure Erosive gastritis Essential (primary) hypertension Hypothyroidism Obesity Retinopathy Titubation Type 2 diabetes mellitus <JOS Spencer Last Filed: 02/05/23 17:01> Surgical History Surgical History: Surgical History (Updated 02/05/23 @ 17:17 by Jesusita Linda NP) H/O tubal ligation Hx of cholecystectomy S/P CABG (coronary artery bypass graft) S/P rotator cuff repair S/
[2023-02-05 10:47] LABS: Basophils Absolute Auto 0.1 K/mm3 (0.0-0.1); Basophils Percent Auto 0.4 % (0.2-1.2); Eosinophils Percent Auto 0.1 % (0-4.4); Hematocrit 29.6 % (37.0-47.0); Hemoglobin 9.4 g/dL (12.0-15.0); Immature Granulocyte Absolute 0.08 K/mm3 (0.00-0.031); Immature Granulocyte Percent A 0.6 % (0-0.5); Lymphocytes Absolute Auto 0.59 K/mm3 (0.9-3.2); Lymphocytes Percent Auto 4.8 % (18.3-44.2); Mean Corpuscular HGB Conc 31.8 g/dl (32-36); Mean Corpuscular Hemoglobin 29.7 pg (26-34); Mean Corpuscular Volume 93.7 fl (80-100); Mean Platelet Volume 10.5 fl (7.4-10.4); Monocytes Absolute Auto 0.9 K/mm3 (0.1-0.6); Monocytes Percent Auto 7.4 % (2.6-8.5); Neutrophils Absolute Auto 10.7 K/mm3 (1.3-6.7); Neutrophils Percent Auto 86.7 % (45.5-73.1); Platelet Count Result 251 k/mm3 (150-375); Red Blood Count 3.16 M/mm3 (4.2-5.4); White Blood Count 12.4 K/mm3 (4.5-10.0)
[2023-02-05 10:57] LABS: Alanine Aminotransferase 16 U/L (6-35); Albumin Level 3.6 g/dL (3.5-5.1); Alkaline Phosphatase 115 U/L (38-126); Anion Gap 7 mmol/L (8-16); Aspartate Amino Transferase 45 U/L (14-36); Bilirubin,Total 0.6 mg/dL (0.2-1.3); Blood Urea Nitrogen 20 mg/dL (7-17); Carbon Dioxide 26 mmol/L (22-30); Chloride 103 mmol/L (98-107); Estimated CRCL calculation 35 ml/min; Estimated Glomerular Filt Rate 43; Glucose 178 mg/dL (65-110); Magnesium 1.5 mg/dL (1.6-2.3); Potassium 4.5 mmol/L (3.4-5.0); Sodium 136 mmol/L (137-145)
[2023-02-05 10:58] LABS: Lactic Acid Reflex 1.1 mmol/L (0.7-2.0)
[2023-02-05 11:05] LABS: NT Pro B Type Natriuretic Pept 7740 pg/mL (19.9-100)
[2023-02-05] MEDS: ALBUTEROL SULFATE NEB 2.5 MG/3 ML INH INHALATION ×2 (11:05→13:15)
[2023-02-05 11:12] LABS: Alveolar/Arterial O2 Gradient 71.1 mmHg; Fractional Inspired Oxygen 28 %; HCO3 ABG 25.9 mEq/l (22.0-26.0); Oxygen Content ABG 13.7 %vol (16.0-22.0); Oxygen Saturation ABG 95.6 % (95.0-100.0); PCO2 ABG 42.4 mmHg (35.0-45.0); PO2 ABG 78.5 mmHg (80.0-100.0); Total Hemoglobin 10.3 g/dL (12.0-18.0); pH ABG 7.404 (7.350-7.450)
[2023-02-05 11:13] LABS: Device NASAL CANNULA; Modified Allen's Test Pass; Site Drawn RIGHT RADIAL
[2023-02-05 11:27] LABS: Influenza A QL RT-PCR Negative (Negative); Influenza B QL RT-PCR Negative (Negative); SARS-CoV-2 RNA PCR Positive
--- NOTE | 2023-02-05 11:29 | ECG_ITS ---
Measurements Intervals [place] Rate: 76 P: 82 PA: 192 QRS: 104 QRSD: 106 T: -11 QT: 422 QTc: 475 Interpretive Statements SINUS RHYTHM RIGHT AXIS DEVIATION BORDERLINE ST-T WAVE ABNORMALITY- ANTEROLAT/INF LEADS BASELINE ARTIFACT- I, II, III, AVR, AVF, V4-V6 BORDERLINE ECG COMPARED TO ECG 02/05/2023 10:33:39 NO SIGNIFICANT CHANGES Electronically Signed On 02-05-2023 11:54:56 CDT by Tino Hong D.O.
[2023-02-05 12:11] LABS: INR 1.1; Prothrombin Time 14.2 Seconds (11.1-14.7)
[2023-02-05 12:12] LABS: Partial Thromboplastin Time 30.7 SECONDS (22.3-36.8)
[2023-02-05 12:19] LABS: Free T4 Free Thyroxine Reflex 1.19 ng/dL (0.78-2.19)
[2023-02-05 12:43] LABS: Lipase 36 U/L (23-300)
[2023-02-05 13:05] LABS: Total Triiodothyronine (T3) 0.89 NG/ML (0.97-1.69)
--- NOTE | 2023-02-05 13:13 | PM.CNCAR ---
Assessment and Plan Assessment and plan (1) COVID-19: Code(s): U07.1 - COVID-19 Status: Acute (2) Acute hypoxemic respiratory failure: Code(s): J96.01 - Acute respiratory failure with hypoxia Status: Acute Plan This is an 82-year-old woman with known coronary artery disease as detailed in my note above. She enters the hospital with coughing the some respiratory difficulty and declining oxygen saturation presumably because of coronavirus. She is not reporting any ischemic symptoms nor is her ECG showing any acute ischemic abnormalities. In this setting her troponin level is elevated. Once again she is known to have three-vessel coronary disease with a patent LUIS FELIPE to her LAD and a moderate right coronary lesion 3 years ago which has been treated medically. At this point medical treatment/supportive care should be planned for her type 2 myocardial infarction. This would include continuing her anti-platelet therapy and statin. As described above she is not a patient we would prescribed beta-blockers to since she was just here earlier this month and beta-blockers were withdrawn because of problematic/symptomatic bradycardia. Given her advanced age underlying coronary disease and COVID infection resulting in hypoxemia her prognosis is guarded at this point in my opinion. At this point there is no need to consider follow-up angiography in this setting. Mitchell Guevara MD [facility] History of Present Illness History of Present Illness Consult date/time: 02/05/23 13:13 Reason For Visit: low O2/ DYSPNEA Narrative: This is an 82-year-old woman unknown to me prior to this encounter I am seeing her in the emergency room with a request in the ED staff because of elevation of troponin and diagnosis of what appears to be type 2 CA. this is a patient who is very hard to obtain much history from I am seeing her in the emergency room she does awaken and arouse and answer questions but immediately goes back to sleep and does not provide much history. Specifically I asked her multiple times regarding chest pain in she answers in the negative. 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 This lady was sent to the hospital emergency room today because she was having respiratory distress and was found to have low oxygen saturations and requiring oxygen which is not her baseline. She normally has no pulmonary problems and is breathing room air. She on arrival was found to be hypoxemic she does have significant chest congestion by physical exam and a CTA was done which was found to be negative for pulmonary embolism. Cardiac troponin levels were done and are significantly elevated at 4.2 prompting this consultation. The patient's electrocardiogram does not show any ischemic or injury pattern. Once again she is resting comfortably in the emergency room with nasal cannula oxygen in place and upon awakening is denying experiencing any chest pain at this time. Her chart was reviewed in detail. She apparently has a history of multivessel coronary artery disease and underwent surgical revascularization I believe in 2010. She is followed by a cardiology group elsewhere and according to report there were notes that are in the chart underwent ischemia evaluation in 2019 because of symptoms of dyspnea and an abnormal stress test. Her surgery consisted of an LUIS FELIPE graft to the LAD and 2 vein grafts. Her evaluation in T demonstrated that her only the remaining graft is the LUIS FELIPE graft. The vein grafts are occluded and there was by report 60-70% stenosis in the RCA for which medical therapy was recommended. Left ventricular systolic function at that time was normal. It looks like she was just in the hospital here last month and then earlier this month and was seen by couple of my partners. We will consult to to see her at that time because of bradycardia. She had a history of fr
[2023-02-05] MEDS: IPRATROPIUM BR 0.02% INH SOLN 0.5 MG/2.5 ML VIAL 1 MG INHALATION (13:15)
[2023-02-05] MEDS: HEPARIN SOD/D5W 100 UNITS/ML 25,000 UNITS/250 ML BAG 8 UNITS IV CONT (13:30)
[2023-02-05] MEDS: HEPARIN SODIUM 5,000 UNITS/ML VIAL 4000 UNITS IV PUSH (13:30)
[2023-02-05] MEDS: ASPIRIN 81 MG CHEWABLE TABLET 324 MG PO (13:42)
--- NOTE | 2023-02-05 13:51 | PM.IMHP ---
H&P: HPI History of Present Illness Date/Time: 02/05/23 13:51 Chief Complaint: Shortness of breath Narrative: This is an 82-year-old female patient who has a history of frequent falls, TIA coronary artery disease with a 3 vessel CABG. The patient comes from [facility]. Her roommate recently tested positive for COVID his she was found to be negative there. However here she was found to be positive. The patient stated that she was worn out. Initially the patient stated that she had chest pain and now denies any chest pain. Patient now has a new oxygen requirement and does not typically wear oxygen at the facility. She denies any nausea vomiting. She has no fever chills. Her white count is noted to be 12.4. H&H 9.4 and 29.6. Her D-dimer was noted to be 0.90. Sodium 136. Creatinine 1.2. Glucose 128. Magnesium 1.5. Troponin 4.2 and 20.1 BNP 7740. The patient was started on heparin drip cardiology has been consulted. Her TSH is 18.2 but her T4 is 1.9 total T3 is 0.89. The patient is positive for COVID. Chest CTA shows no pulmonary embolism or acute cardiopulmonary abnormality sensitivity limited by respiratory motion artifact. Cardiomegaly. Small pleural effusions. Bilateral dependent airspace opacities consistent with atelectasis and/or pneumonia. The patient was given a nebulizer treatment, REM does severe Atrovent and albuterol nebulizers, Decadron, tile and aspirin. EKG was read as sinus rhythm right axis deviation borderline ST T wave abnormality. The patient is currently on 2 L per nasal cannula and is typically not on oxygen. The patient is being admitted to inpatient status on the date of service of 02/05/2023 Review of Systems Review of Systems: All systems reviewed & are unremarkable except as noted in HPI and below Constitutional: Constitutional: Reports as per HPI and Reports no additional constitutional complaints Eyes: Eyes: Reports as per HPI and Reports no additional eye complaints ENT: Reports system reviewed and no additional complaints, except as documented and Reports Normal hearing present Cardiovascular: Cardiovascular: Reports no additional cardiovascular complaints Respiratory: Respiratory: Reports no additional respiratory complaints and Reports no additional respiratory complaints Gastrointestinal: Gastrointestinal: Reports as per HPI and Reports no additional gastrointestinal complaints Musculoskeletal: Musculoskeletal: Reports no additional musculoskeletal complaints Integumentary/Breasts: Skin/Breast: Reports system reviewed and no additional complaints, except as docu and Reports as per HPI Neurologic: Reports system reviewed and no additional complaints, except as documented, Reports as per HPI and Reports Normal hearing present Psychiatric: Psychiatric: Reports no additional psychiatric complaints and Reports as per HPI Endocrine: Endocrine: Reports no additional endocrine complaints Hematologic/Lymphatic: Hematologic/Lymphatic: Reports no additional hematologic/lymphatic complaints Allergic/Immunologic: Allergic/Immunologic: Reports no additional allergic/immunologic complaints [facility] Past Medical History Medical History (Updated 02/05/23 @ 17:21 by Jesusita Linda NP) CAD (coronary artery disease) Cataract Cholecystitis with cholelithiasis Congestive heart failure Erosive gastritis Essential (primary) hypertension Hypothyroidism Obesity Retinopathy Titubation Type 2 diabetes mellitus Surgical History Surgical History (Updated 02/05/23 @ 17:17 by Jesusita Linda NP) H/O tubal ligation Hx of cholecystectomy S/P CABG (coronary artery bypass graft) S/P rotator cuff repair S/P tonsillectomy and adenoidectomy Total knee replacement status Family History Family History Sibling Patient's sister is in good health Family history of diabetes mellitus in first degree relative Patient's brother i
[2023-02-05] MEDS: REMDESIVIR 200 MG/NS 250 ML 200 MG/250 ML BAG 250 MG IVPB (14:43)
--- NOTE | 2023-02-05 16:15 | ADMGEN ---
This patient, Leila Baugh, was admitted to IMU Room 231-01. Patient/family oriented to hospital policies and general routines including ID bracelet, bed and alarms, visiting hours, pain management, procedures, bathroom and other care routines, personal items, smoking policy, room service/diet, and visiting hours. Information on how to activate the Rapid Response Team has been discussed. Patient/Family are encouraged to report perceived risks to care and to ask questions if they do not understand what they are told or what they should do.
[2023-02-05] MEDS: MAGNESIUM SULF 2 GM/WATER 50ML 2 GM/50 ML BAG IVPB (17:36)
[2023-02-05 18:55] LABS: Glucose Point of Care 230 mg/dl (65-105)
[2023-02-05 19:38] LABS: Partial Thromboplastin Time 168.3 SECONDS (22.3-36.8)
[2023-02-05 20:26] LABS: Glucose Point of Care 236 mg/dl (65-105)
[2023-02-05] MEDS: ATORVASTATIN 20 MG TABLET PO (23:35)
[2023-02-05] MEDS: oxyBUTYnin CHLORIDE 5 MG TABLET PO (23:35)
[2023-02-05] MEDS: SENNA/DOCUSATE SODIUM TABLET 1 TAB PO (23:35)
[2023-02-06] VITALS (14 sets, daily range): BP systolic 115–151; BP diastolic 70–93; PULSE 49–66; RESP 16–20; TEMP 36.2–36.6; O2SAT 93–100; BMI 39.4
[2023-02-06 03:06] LABS: Basophils Percent Auto 0.1 % (0.2-1.2); Hematocrit 28.5 % (37.0-47.0); Hemoglobin 9.1 g/dL (12.0-15.0); Immature Granulocyte Absolute 0.04 K/mm3 (0.00-0.031); Immature Granulocyte Percent A 0.5 % (0-0.5); Lymphocytes Absolute Auto 0.64 K/mm3 (0.9-3.2); Lymphocytes Percent Auto 7.9 % (18.3-44.2); Mean Corpuscular HGB Conc 31.9 g/dl (32-36); Mean Corpuscular Hemoglobin 29.4 pg (26-34); Mean Corpuscular Volume 91.9 fl (80-100); Mean Platelet Volume 10.5 fl (7.4-10.4); Monocytes Absolute Auto 0.7 K/mm3 (0.1-0.6); Monocytes Percent Auto 8.3 % (2.6-8.5); Neutrophils Absolute Auto 6.7 K/mm3 (1.3-6.7); Neutrophils Percent Auto 83.2 % (45.5-73.1); Platelet Count Result 213 k/mm3 (150-375); Red Cell Distribution Width 16.3 % (11.5-14.5); White Blood Count 8.1 K/mm3 (4.5-10.0)
[2023-02-06 03:23] LABS: Alanine Aminotransferase 32 U/L (6-35); Albumin Level 3.3 g/dL (3.5-5.1); Alkaline Phosphatase 97 U/L (38-126); Anion Gap 2 mmol/L (8-16); Aspartate Amino Transferase 245 U/L (14-36); Bilirubin,Total 0.3 mg/dL (0.2-1.3); Blood Urea Nitrogen 25 mg/dL (7-17); Calcium 8.9 mg/dL (8.4-10.2); Carbon Dioxide 30 mmol/L (22-30); Chloride 103 mmol/L (98-107); Estimated CRCL calculation 30 ml/min; Estimated Glomerular Filt Rate 36; Glucose 158 mg/dL (65-110); Magnesium 2.3 mg/dL (1.6-2.3); Potassium 4.4 mmol/L (3.4-5.0); Sodium 135 mmol/L (137-145)
[2023-02-06 03:24] LABS: Hemoglobin A1C 5.7 % (<5.7); Lactic Acid Reflex 1.2 mmol/L (0.7-2.0)
[2023-02-06 03:27] LABS: INR 1.2; Prothrombin Time 15.2 Seconds (11.1-14.7)
[2023-02-06 03:29] LABS: Partial Thromboplastin Time 140.2 SECONDS (22.3-36.8)
[2023-02-06 06:04] LABS: Free T4 Free Thyroxine Reflex 0.94 ng/dL (0.78-2.19)
[2023-02-06] MEDS: LEVOTHYROXINE SODIUM 125 MCG TABLET PO (06:05)
[2023-02-06] MEDS: SPIRONOLACTONE 25 MG TABLET PO ×2 (08:17→17:59)
[2023-02-06] MEDS: SILVERGEL (ELTA) 45 ML 1 APPLIC TOPICAL (08:17)
[2023-02-06] MEDS: PANTOPRAZOLE 40 MG TABLET PO ×2 (08:18→17:59)
[2023-02-06] MEDS: LOSARTAN POTASSIUM 25 MG TABLET PO (08:18)
[2023-02-06] MEDS: oxyBUTYnin CHLORIDE 5 MG TABLET PO ×2 (08:18→17:59)
[2023-02-06] MEDS: FERROUS SULFATE 324 MG TABLET PO ×2 (08:19→18:00)
[2023-02-06] MEDS: FUROSEMIDE 20 MG TABLET PO (08:19)
[2023-02-06] MEDS: allopurinoL 100 MG TABLET PO (08:20)
[2023-02-06] MEDS: CHOLECALCIFEROL 1,000 UNITS TABLET 2000 UNITS PO (08:20)
[2023-02-06] MEDS: CLOPIDOGREL BISULFATE 75 MG TABLET PO (08:20)
[2023-02-06] MEDS: polyethylene glycoL 3350 17 GM POWD.PACK PO (08:28)
[2023-02-06 09:55] LABS: Glucose Point of Care 124 mg/dl (65-105)
[2023-02-06 10:10] LABS: Partial Thromboplastin Time 59.4 SECONDS (22.3-36.8)
[2023-02-06] MEDS: REMDESIVIR 100 MG/NS 250 ML 100 MG/250 ML BAG 250 MG IVPB (10:53)
[2023-02-06] MEDS: HEPARIN SODIUM 5,000 UNITS/ML VIAL 2500 UNITS IV PUSH ×2 (10:53→18:00)
[2023-02-06 11:52] LABS: Glucose Point of Care 139 mg/dl (65-105)
--- NOTE | 2023-02-06 12:54 | PM.IMPN ---
Progress Note: A&P Assessment and Plan (1) Non-STEMI (non-ST elevated myocardial infarction): Code(s): I21.4 - Non-ST elevation (NSTEMI) myocardial infarction Status: Acute (2) COVID-19: Code(s): U07.1 - COVID-19 Status: Acute (3) Congestive heart failure: Code(s): I50.9 - Heart failure, unspecified Status: Acute (4) Adult hypothyroidism: Code(s): E03.9 - Hypothyroidism, unspecified Status: Acute (5) Type 2 diabetes mellitus: Code(s): E11.9 - Type 2 diabetes mellitus without complications Status: Acute (6) Essential (primary) hypertension: Code(s): I10 - Essential (primary) hypertension Status: Chronic Plan 82-year-old female presented with shortness of breath. Acute hypoxic respiratory failure 89% on 2 L nasal cannula on arrival to the ED. COVID test positive. D-dimer slightly elevated at 0.9. CTA negative for PE but showed cardiomegaly possible atelectasis versus pneumonia. Remains on oxygen supplementation. Flu negative BNP 7740. Troponin came back elevated at 4.2 lactic acid is normal ABG 7.40/42/78/25 with no hypercapnia. Acute COVID infection remdesivir and Decadron started Non-STEMI with acute hypoxia troponin elevated to 28. EKG with subtle depressions and T-wave inversions. Cardiology on board. On heparin drip. Medical treatment due to ongoing COVID infection likely type 2 [place]. on aspirin Anemia mild chronic normocytic normal normochromic. No signs of bleeding Elevated D-dimer CTA negative for PE CKD stage 3 creatinine 1.4 continue to monitor Elevated TSH TSH on admission was 18 however repeat next day was 6.4 will continue to monitor and repeat as an outpatient basis continue levothyroxine as previously prescribed History of recurrent falls History of TIA Coronary artery disease status post CABG Congestive heart failure last echo 01/14/2023 with EF 60-65% grade 2 diastolic dysfunction. Well compensated continue losartan and spironolactone. Not on beta-raegan due to symptomatic bradycardia in recent admission Hypertension Hypothyroidism Obesity Type 2 diabetes mellitus SSI hold metformin DVT prophylaxis on heparin drip Code status full code Subjective Date/time seen: 02/06/23 12:54 Interval history: Chart reviewed. Discussed with nursing staff. Feeling better. She is more oriented today. Has some cough. Shortness of breath have improved. Denies any chest pain. Review of Systems Review of Systems: All systems reviewed & are unremarkable except as noted in HPI and below Exam Narrative: APPEARANCE: Well-appearing elderly female, not in acute distress Head: Normocephalic and atraumatic. EYES: PERRLA/EOMI, conjunctivae clear NOSE: No nasal drainage NECK: Supple. No adenopathy, no masses. RESPIRATORY: Coarse breath sounds throughout.? Airway patent, respirations nonlabored. CARDIOVASCULAR: Regular rate and rhythm without murmurs, rubs, or gallops. ABDOMINAL: Normoactive bowel sounds. Soft, nontender, nondistended. No rebound tenderness or guarding. MUSCULOSKELETAL: non-pitting edema to BLE. Extremities are warm and well-perfused. Moves all extremities well. NEURO: Normal speech. No focal neurologic deficits. SKIN: Skin is warm and dry. No rashes. PSYCHIATRIC: Normal affect/mood. Objective Data Vital Signs Vital Signs: Vital Signs - 24 hr 02/05/23 13:15 02/05/23 14:40 02/05/23 13:00 Temperature Pulse Rate 75 77 77 Respiratory Rate 16 16 16 Blood Pressure 142/63 H 135/60 Pulse Oximetry 99 98 Oxygen Delivery Oxygen Flow Rate Fraction of Inspired Oxygen 02/05/23 15:30 02/05/23 15:20 02/05/23 16:28 Temperature Pulse Rate 76 Respiratory Rate 12 Blood Pressure 101/46 L Pulse Oximetry 98 100 98 Oxygen Delivery Nasal Cannula Nasal Cannula Oxygen Flow Rate 2 2 Fraction of Inspired Oxygen 28 02/05/23 16:19 02/05/23 18:00 02/05/23 20:00 Temperature 97.2 F L Pulse Rate 73 96 7
[2023-02-06 17:15] LABS: Glucose Point of Care 167 mg/dl (65-105)
[2023-02-06 20:38] LABS: Glucose Point of Care 251 mg/dl (65-105)
[2023-02-06] MEDS: ASPIRIN 81 MG ENTERIC TABLET PO (20:55)
[2023-02-06] MEDS: TOLNAFTATE 1% POWDER 45 GM BTL 1 APPLIC TOPICAL (20:55)
[2023-02-06] MEDS: ATORVASTATIN 20 MG TABLET PO (20:55)
[2023-02-06] MEDS: SENNA/DOCUSATE SODIUM TABLET 1 TAB PO (20:55)
[2023-02-07] VITALS (13 sets, daily range): BP systolic 110–143; BP diastolic 41–89; PULSE 42–56; RESP 12–20; TEMP 36.1–36.6; O2SAT 93–100
[2023-02-07 01:44] LABS: Partial Thromboplastin Time 103.4 SECONDS (22.3-36.8)
[2023-02-07] MEDS: LEVOTHYROXINE SODIUM 125 MCG TABLET PO (06:09)
[2023-02-07] MEDS: HEPARIN SOD/D5W 100 UNITS/ML 25,000 UNITS/250 ML BAG 6 UNITS IV CONT (06:09)
[2023-02-07 08:09] LABS: Basophils Percent Auto 0.2 % (0.2-1.2); Hematocrit 28.4 % (37.0-47.0); Hemoglobin 9.2 g/dL (12.0-15.0); INR 1.3; Immature Granulocyte Absolute 0.04 K/mm3 (0.00-0.031); Immature Granulocyte Percent A 0.4 % (0-0.5); Lymphocytes Absolute Auto 0.98 K/mm3 (0.9-3.2); Lymphocytes Percent Auto 9.6 % (18.3-44.2); Mean Corpuscular HGB Conc 32.4 g/dl (32-36); Mean Corpuscular Hemoglobin 29.9 pg (26-34); Mean Corpuscular Volume 92.2 fl (80-100); Mean Platelet Volume 11.5 fl (7.4-10.4); Monocytes Absolute Auto 1.1 K/mm3 (0.1-0.6); Monocytes Percent Auto 10.3 % (2.6-8.5); Neutrophils Absolute Auto 8.1 K/mm3 (1.3-6.7); Neutrophils Percent Auto 79.5 % (45.5-73.1); Platelet Count Result 192 k/mm3 (150-375); Prothrombin Time 15.7 Seconds (11.1-14.7); Red Blood Count 3.08 M/mm3 (4.2-5.4); Red Cell Distribution Width 16.3 % (11.5-14.5); White Blood Count 10.2 K/mm3 (4.5-10.0)
[2023-02-07 08:16] LABS: Partial Thromboplastin Time 85.9 SECONDS (22.3-36.8)
[2023-02-07 08:19] LABS: Alanine Aminotransferase 34 U/L (6-35); Albumin Level 3.2 g/dL (3.5-5.1); Alkaline Phosphatase 87 U/L (38-126); Anion Gap 2 mmol/L (8-16); Aspartate Amino Transferase 164 U/L (14-36); Bilirubin,Total 0.5 mg/dL (0.2-1.3); Blood Urea Nitrogen 39 mg/dL (7-17); Calcium 8.9 mg/dL (8.4-10.2); Carbon Dioxide 31 mmol/L (22-30); Chloride 100 mmol/L (98-107); Estimated CRCL calculation 28 ml/min; Estimated Glomerular Filt Rate 33; Glucose 126 mg/dL (65-110); Magnesium 2.4 mg/dL (1.6-2.3); Potassium 4.3 mmol/L (3.4-5.0); Sodium 133 mmol/L (137-145)
[2023-02-07 08:33] LABS: Glucose Point of Care 132 mg/dl (65-105)
[2023-02-07] MEDS: oxyBUTYnin CHLORIDE 5 MG TABLET PO ×2 (09:38→17:03)
[2023-02-07] MEDS: CLOPIDOGREL BISULFATE 75 MG TABLET PO (09:38)
[2023-02-07] MEDS: CHOLECALCIFEROL 1,000 UNITS TABLET 2000 UNITS PO (09:38)
[2023-02-07] MEDS: FUROSEMIDE 20 MG TABLET PO (09:38)
[2023-02-07] MEDS: allopurinoL 100 MG TABLET PO (09:39)
[2023-02-07] MEDS: SPIRONOLACTONE 25 MG TABLET PO ×2 (09:39→17:02)
[2023-02-07] MEDS: PANTOPRAZOLE 40 MG TABLET PO ×2 (09:39→17:02)
[2023-02-07] MEDS: FERROUS SULFATE 324 MG TABLET PO ×2 (09:39→17:02)
[2023-02-07] MEDS: LOSARTAN POTASSIUM 25 MG TABLET PO (09:39)
[2023-02-07] MEDS: TRIAMCINOLONE ACET 0.1% OINT 15 GM TUBE 1 APPLIC TOPICAL (09:40)
[2023-02-07] MEDS: TOLNAFTATE 1% POWDER 45 GM BTL 1 APPLIC TOPICAL ×2 (09:40→21:52)
[2023-02-07] MEDS: SILVERGEL (ELTA) 45 ML 1 APPLIC TOPICAL (09:40)
[2023-02-07] MEDS: HYDROCORTISONE 1% 30 GM CREAM 1 APPLIC TOPICAL (09:44)
[2023-02-07] MEDS: REMDESIVIR 100 MG/NS 250 ML 100 MG/250 ML BAG 250 MG IVPB (11:40)
[2023-02-07] MEDS: polyethylene glycoL 3350 17 GM POWD.PACK PO (11:40)
[2023-02-07 12:44] LABS: Glucose Point of Care 214 mg/dl (65-105)
[2023-02-07] MEDS: INSULIN ASPART (*BKC) 100 UNITS/ML SUB-Q (13:28)
--- NOTE | 2023-02-07 15:20 | PM.IMPN ---
Progress Note: A&P Assessment and Plan (1) Non-STEMI (non-ST elevated myocardial infarction): Code(s): I21.4 - Non-ST elevation (NSTEMI) myocardial infarction Status: Acute (2) COVID-19: Code(s): U07.1 - COVID-19 Status: Acute (3) Congestive heart failure: Code(s): I50.9 - Heart failure, unspecified Status: Acute (4) Adult hypothyroidism: Code(s): E03.9 - Hypothyroidism, unspecified Status: Acute (5) Type 2 diabetes mellitus: Code(s): E11.9 - Type 2 diabetes mellitus without complications Status: Acute (6) Essential (primary) hypertension: Code(s): I10 - Essential (primary) hypertension Status: Chronic Plan 82-year-old female presented with shortness of breath. Acute hypoxic respiratory failure 89% on 2 L nasal cannula on arrival to the ED. COVID test positive. D-dimer slightly elevated at 0.9. CTA negative for PE but showed cardiomegaly possible atelectasis versus pneumonia. Remains on oxygen supplementation. Flu negative BNP 7740. Troponin came back elevated at 4.2 lactic acid is normal ABG 7.40/42/78/25 with no hypercapnia. Acute COVID infection remdesivir and Decadron started Non-STEMI with acute hypoxia troponin elevated to 28. EKG with subtle depressions and T-wave inversions. Cardiology on board. On heparin drip. Medical treatment due to ongoing COVID infection likely type 2 [place]. on aspirin Anemia mild chronic normocytic normal normochromic. No signs of bleeding Elevated D-dimer CTA negative for PE CKD stage 3 creatinine 1.4 continue to monitor Elevated TSH TSH on admission was 18 however repeat next day was 6.4 will continue to monitor and repeat as an outpatient basis continue levothyroxine as previously prescribed History of recurrent falls History of TIA Coronary artery disease status post CABG Congestive heart failure last echo 01/14/2023 with EF 60-65% grade 2 diastolic dysfunction. Well compensated continue losartan and spironolactone. Not on beta-raegan due to symptomatic bradycardia in recent admission Hypertension Hypothyroidism Obesity Type 2 diabetes mellitus SSI hold metformin DVT prophylaxis on heparin drip Code status full code Subjective Date/time seen: 02/07/23 15:20 Interval history: Doing well. Remains on IV heparin. Denies any chest pain. Shortness of breath has improved. Has some cough. Review of Systems Review of Systems: All systems reviewed & are unremarkable except as noted in HPI and below Exam Narrative: APPEARANCE: Well-appearing elderly female, not in acute distress Head: Normocephalic and atraumatic. EYES: PERRLA/EOMI, conjunctivae clear NOSE: No nasal drainage NECK: Supple. No adenopathy, no masses. RESPIRATORY: Coarse breath sounds throughout.? Airway patent, respirations nonlabored. CARDIOVASCULAR: Regular rate and rhythm without murmurs, rubs, or gallops. ABDOMINAL: Normoactive bowel sounds. Soft, nontender, nondistended. No rebound tenderness or guarding. MUSCULOSKELETAL: non-pitting edema to BLE. Extremities are warm and well-perfused. Moves all extremities well. NEURO: Normal speech. No focal neurologic deficits. SKIN: Skin is warm and dry. No rashes. PSYCHIATRIC: Normal affect/mood. Objective Data Vital Signs Vital Signs: Vital Signs - 24 hr 02/06/23 16:00 02/06/23 16:00 02/06/23 16:00 Temperature 97.6 F Pulse Rate 60 58 L Respiratory Rate 20 Blood Pressure 115/93 H Pulse Oximetry 100 96 Oxygen Delivery Nasal Cannula Oxygen Flow Rate 1 Fraction of Inspired Oxygen 02/06/23 18:00 02/06/23 20:00 02/06/23 20:00 Temperature 97.8 F Pulse Rate 66 59 L 52 L Respiratory Rate 20 Blood Pressure 125/81 Pulse Oximetry 97 Oxygen Delivery Oxygen Flow Rate Fraction of Inspired Oxygen 02/06/23 20:00 02/06/23 22:00 02/06/23 23:29 Temperature Pulse Rate 52 L 54 L 50 L Respiratory Rate 20 Blood Pressure Pulse Oximetry 97 Oxyg
[2023-02-07 17:28] LABS: Glucose Point of Care 199 mg/dl (65-105)
[2023-02-07 20:19] LABS: Glucose Point of Care 261 mg/dl (65-105)
[2023-02-07] MEDS: SENNA/DOCUSATE SODIUM TABLET 1 TAB PO (21:45)
[2023-02-07] MEDS: ATORVASTATIN 20 MG TABLET PO (21:45)
[2023-02-07] MEDS: ASPIRIN 81 MG ENTERIC TABLET PO (21:45)
[2023-02-08] VITALS (12 sets, daily range): BP systolic 125–150; BP diastolic 54–96; PULSE 40–60; RESP 16–20; TEMP 36.2–36.6; O2SAT 96–99
[2023-02-08 04:26] LABS: Basophils Percent Auto 0.1 % (0.2-1.2); Hematocrit 27.7 % (37.0-47.0); Hemoglobin 8.9 g/dL (12.0-15.0); Immature Granulocyte Absolute 0.06 K/mm3 (0.00-0.031); Immature Granulocyte Percent A 0.8 % (0-0.5); Lymphocytes Absolute Auto 0.69 K/mm3 (0.9-3.2); Mean Corpuscular HGB Conc 32.1 g/dl (32-36); Mean Corpuscular Hemoglobin 29.7 pg (26-34); Mean Corpuscular Volume 92.3 fl (80-100); Mean Platelet Volume 11.1 fl (7.4-10.4); Monocytes Absolute Auto 0.8 K/mm3 (0.1-0.6); Monocytes Percent Auto 10.8 % (2.6-8.5); Neutrophils Absolute Auto 6.1 K/mm3 (1.3-6.7); Neutrophils Percent Auto 79.3 % (45.5-73.1); Platelet Count Result 174 k/mm3 (150-375); Red Cell Distribution Width 16.2 % (11.5-14.5); White Blood Count 7.7 K/mm3 (4.5-10.0)
[2023-02-08 04:41] LABS: INR 1.2; Prothrombin Time 15.1 Seconds (11.1-14.7)
[2023-02-08 04:43] LABS: Partial Thromboplastin Time 78.6 SECONDS (22.3-36.8)
[2023-02-08 05:17] LABS: Alanine Aminotransferase 29 U/L (6-35); Alkaline Phosphatase 81 U/L (38-126); Anion Gap 2 mmol/L (8-16); Aspartate Amino Transferase 77 U/L (14-36); Bilirubin,Total 0.4 mg/dL (0.2-1.3); Blood Urea Nitrogen 49 mg/dL (7-17); Calcium 8.4 mg/dL (8.4-10.2); Carbon Dioxide 31 mmol/L (22-30); Chloride 100 mmol/L (98-107); Estimated CRCL calculation 27 ml/min; Estimated Glomerular Filt Rate 31; Glucose 184 mg/dL (65-110); Magnesium 2.5 mg/dL (1.6-2.3); Potassium 4.4 mmol/L (3.4-5.0); Sodium 133 mmol/L (137-145)
[2023-02-08] MEDS: LEVOTHYROXINE SODIUM 125 MCG TABLET PO (05:44)
[2023-02-08 08:15] LABS: Glucose Point of Care 150 mg/dl (65-105)
[2023-02-08] MEDS: REMDESIVIR 100 MG/NS 250 ML 100 MG/250 ML BAG 250 MG IVPB (10:15)
[2023-02-08] MEDS: CHOLECALCIFEROL 1,000 UNITS TABLET 2000 UNITS PO (10:15)
[2023-02-08] MEDS: LOSARTAN POTASSIUM 25 MG TABLET PO (10:16)
[2023-02-08] MEDS: PANTOPRAZOLE 40 MG TABLET PO ×2 (10:16→17:33)
[2023-02-08] MEDS: FERROUS SULFATE 324 MG TABLET PO ×2 (10:16→17:32)
[2023-02-08] MEDS: CLOPIDOGREL BISULFATE 75 MG TABLET PO (10:16)
[2023-02-08] MEDS: oxyBUTYnin CHLORIDE 5 MG TABLET PO ×2 (10:16→17:33)
[2023-02-08] MEDS: FUROSEMIDE 20 MG TABLET PO (10:16)
[2023-02-08] MEDS: TOLNAFTATE 1% POWDER 45 GM BTL 1 APPLIC TOPICAL ×2 (10:17→21:33)
[2023-02-08] MEDS: allopurinoL 100 MG TABLET PO (10:17)
[2023-02-08] MEDS: SPIRONOLACTONE 25 MG TABLET PO ×2 (10:17→17:33)
[2023-02-08] MEDS: polyethylene glycoL 3350 17 GM POWD.PACK PO (10:19)
[2023-02-08] MEDS: SILVERGEL (ELTA) 45 ML 1 APPLIC TOPICAL (10:19)
[2023-02-08 12:11] LABS: Glucose Point of Care 197 mg/dl (65-105)
--- NOTE | 2023-02-08 13:12 | PM.IMPN ---
Progress Note: A&P Assessment and Plan (1) Non-STEMI (non-ST elevated myocardial infarction): Code(s): I21.4 - Non-ST elevation (NSTEMI) myocardial infarction Status: Acute (2) COVID-19: Code(s): U07.1 - COVID-19 Status: Acute (3) Congestive heart failure: Code(s): I50.9 - Heart failure, unspecified Status: Acute (4) Adult hypothyroidism: Code(s): E03.9 - Hypothyroidism, unspecified Status: Acute (5) Type 2 diabetes mellitus: Code(s): E11.9 - Type 2 diabetes mellitus without complications Status: Acute (6) Essential (primary) hypertension: Code(s): I10 - Essential (primary) hypertension Status: Chronic Plan 82-year-old female presented with shortness of breath. # acute hypoxic respiratory failure 89% on 2 L nasal cannula on arrival to the ED. COVID test positive. D-dimer slightly elevated at 0.9. CTA negative for PE but showed cardiomegaly possible atelectasis versus pneumonia. Remains on oxygen supplementation. Flu negative BNP 7740. Troponin came back elevated at 4.2 lactic acid is normal ABG 7.40/42/78/25 with no hypercapnia. # acute COVID infection remdesivir and Decadron started. Will continue same # non-STEMI with acute hypoxia troponin elevated to 28. EKG with subtle depressions and T-wave inversions. Cardiology on board. On heparin drip. Medical treatment due to ongoing COVID infection likely type 2 [place]. on aspirin and Plavix. Will stop the IV heparin today been on it for 48-72 hours now. # anemia mild chronic normocytic normal normochromic. 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 Well compensated continue losartan and spironolactone. Not on beta-raegan due to symptomatic bradycardia in recent admission # hypertension # hypothyroidism # obesity # type 2 diabetes mellitus SSI hold metformin # dVT prophylaxis on heparin drip which will be stopped and switched to Lovenox DVT prophylaxis dose # code status full code Subjective Date/time seen: 02/08/23 13:12 Interval history: No overnight events. Remains on IV heparin denies any chest pain. Work with therapy today. Minimal cough shortness of breath has improved. Review of Systems Review of Systems: All systems reviewed & are unremarkable except as noted in HPI and below Exam Narrative: APPEARANCE: Well-appearing elderly female, not in acute distress Head: Normocephalic and atraumatic. EYES: PERRLA/EOMI, conjunctivae clear NOSE: No nasal drainage NECK: Supple. No adenopathy, no masses. RESPIRATORY: Coarse breath sounds throughout.? Airway patent, respirations nonlabored. CARDIOVASCULAR: Regular rate and rhythm without murmurs, rubs, or gallops. ABDOMINAL: Normoactive bowel sounds. Soft, nontender, nondistended. No rebound tenderness or guarding. MUSCULOSKELETAL: non-pitting edema to BLE. Extremities are warm and well-perfused. Moves all extremities well. NEURO: Normal speech. No focal neurologic deficits. SKIN: Skin is warm and dry. No rashes. PSYCHIATRIC: Normal affect/mood. Objective Data Vital Signs Vital Signs: Vital Signs - 24 hr 02/07/23 14:00 02/07/23 16:00 02/07/23 16:00 Temperature Pulse Rate 48 L 51 L Respiratory Rate Blood Pressure Pulse Oximetry Oxygen Delivery Room Air Fraction of Inspired Oxygen 02/07/23 16:00 02/07/23 18:00 02/07/23 20:00 Temperature 97.0 F L 97.8 F Pulse Rate 51 L 53 L 52 L Respiratory Rate 12 20 Blood Pressure 132/89 130/56 L Pulse Oximetry 93 97 Oxygen Delivery Fraction of
[2023-02-08 17:17] LABS: Glucose Point of Care 252 mg/dl (65-105)
[2023-02-08] MEDS: INSULIN ASPART (*BKC) 100 UNITS/ML SUB-Q (17:33)
[2023-02-08 20:38] LABS: Glucose Point of Care 291 mg/dl (65-105)
[2023-02-08] MEDS: SENNA/DOCUSATE SODIUM TABLET 1 TAB PO (21:33)
[2023-02-08] MEDS: ATORVASTATIN 20 MG TABLET PO (21:33)
[2023-02-08] MEDS: ASPIRIN 81 MG ENTERIC TABLET PO (21:33)
[2023-02-09] VITALS (10 sets, daily range): BP systolic 110–152; BP diastolic 54–80; PULSE 40–54; RESP 16–20; TEMP 36.1–36.5; O2SAT 96–100
[2023-02-09 05:15] LABS: Basophils Percent Auto 0.1 % (0.2-1.2); Hemoglobin 9.7 g/dL (12.0-15.0); Immature Granulocyte Absolute 0.03 K/mm3 (0.00-0.031); Immature Granulocyte Percent A 0.3 % (0-0.5); Lymphocytes Absolute Auto 0.82 K/mm3 (0.9-3.2); Lymphocytes Percent Auto 9.3 % (18.3-44.2); Mean Corpuscular HGB Conc 32.3 g/dl (32-36); Mean Corpuscular Hemoglobin 29.8 pg (26-34); Mean Platelet Volume 11.6 fl (7.4-10.4); Monocytes Absolute Auto 0.9 K/mm3 (0.1-0.6); Neutrophils Absolute Auto 7.1 K/mm3 (1.3-6.7); Neutrophils Percent Auto 80.3 % (45.5-73.1); Nucleated Red Blood Cells Perc 0.2 % (0.0-0.2); Platelet Count Result 191 k/mm3 (150-375); Red Blood Count 3.26 M/mm3 (4.2-5.4); Red Cell Distribution Width 15.9 % (11.5-14.5); White Blood Count 8.8 K/mm3 (4.5-10.0)
[2023-02-09 05:25] LABS: Alanine Aminotransferase 26 U/L (6-35); Albumin Level 3.1 g/dL (3.5-5.1); Alkaline Phosphatase 84 U/L (38-126); Anion Gap 1 mmol/L (8-16); Aspartate Amino Transferase 44 U/L (14-36); Bilirubin,Total 0.4 mg/dL (0.2-1.3); Blood Urea Nitrogen 53 mg/dL (7-17); Calcium 8.5 mg/dL (8.4-10.2); Carbon Dioxide 30 mmol/L (22-30); Chloride 104 mmol/L (98-107); Estimated CRCL calculation 28 ml/min; Estimated Glomerular Filt Rate 33; Glucose 148 mg/dL (65-110); Magnesium 2.4 mg/dL (1.6-2.3); Potassium 4.4 mmol/L (3.4-5.0); Sodium 135 mmol/L (137-145)
[2023-02-09 05:27] LABS: INR 1.2; Prothrombin Time 15.2 Seconds (11.1-14.7)
[2023-02-09 05:28] LABS: Partial Thromboplastin Time 35.4 SECONDS (22.3-36.8)
[2023-02-09] MEDS: LEVOTHYROXINE SODIUM 125 MCG TABLET PO (06:38)
[2023-02-09 08:17] LABS: Glucose Point of Care 151 mg/dl (65-105)
[2023-02-09] MEDS: polyethylene glycoL 3350 17 GM POWD.PACK PO (10:22)
[2023-02-09] MEDS: ENOXAPARIN 30 MG/0.3 ML SYRINGE SUB-Q (10:22)
[2023-02-09] MEDS: CHOLECALCIFEROL 1,000 UNITS TABLET 2000 UNITS PO (10:22)
[2023-02-09] MEDS: REMDESIVIR 100 MG/NS 250 ML 100 MG/250 ML BAG 250 MG IVPB (10:22)
[2023-02-09] MEDS: CLOPIDOGREL BISULFATE 75 MG TABLET PO (10:22)
[2023-02-09] MEDS: PANTOPRAZOLE 40 MG TABLET PO ×2 (10:23→16:07)
[2023-02-09] MEDS: FERROUS SULFATE 324 MG TABLET PO ×2 (10:23→16:07)
[2023-02-09] MEDS: LOSARTAN POTASSIUM 25 MG TABLET PO (10:23)
[2023-02-09] MEDS: allopurinoL 100 MG TABLET PO (10:23)
[2023-02-09] MEDS: SPIRONOLACTONE 25 MG TABLET PO ×2 (10:23→16:07)
[2023-02-09] MEDS: FUROSEMIDE 20 MG TABLET PO (10:23)
[2023-02-09] MEDS: oxyBUTYnin CHLORIDE 5 MG TABLET PO ×2 (10:23→16:07)
[2023-02-09] MEDS: TOLNAFTATE 1% POWDER 45 GM BTL 1 APPLIC TOPICAL ×2 (10:24→20:00)
[2023-02-09] MEDS: SILVERGEL (ELTA) 45 ML 1 APPLIC TOPICAL (10:24)
[2023-02-09 11:35] LABS: Glucose Point of Care 242 mg/dl (65-105)
[2023-02-09] MEDS: INSULIN ASPART (*BKC) 100 UNITS/ML SUB-Q ×2 (12:07→17:49)
--- NOTE | 2023-02-09 12:53 | P.CDI_ITS ---
CDI Query Clarified Diagnosis Clarified Diagnosis: BNP elevated on 02/05/23 lab work. Documented history of CHF. CHF noted on the assessment and plan. Furosemide listed as a home medication. PT receiving Lasix. Please specify type and acuity of heart failure if known. * Acute * Chronic * Acute on Chronic * Unknown * Systolic * Diastolic * Combined Systolic and Diastolic * Unknown <Veronica Amos RN - Last Filed: 02/09/23 12:55> Provider Comments chronic diastolic heart failrue <Barron Wise MD - Last Filed: 02/10/23 07:27>
--- NOTE | 2023-02-09 16:24 | PM.IMPN ---
Progress Note: A&P Assessment and Plan (1) Non-STEMI (non-ST elevated myocardial infarction): Code(s): I21.4 - Non-ST elevation (NSTEMI) myocardial infarction Status: Acute (2) COVID-19: Code(s): U07.1 - COVID-19 Status: Acute (3) Congestive heart failure: Code(s): I50.9 - Heart failure, unspecified Status: Acute (4) Adult hypothyroidism: Code(s): E03.9 - Hypothyroidism, unspecified Status: Acute (5) Type 2 diabetes mellitus: Code(s): E11.9 - Type 2 diabetes mellitus without complications Status: Acute (6) Essential (primary) hypertension: Code(s): I10 - Essential (primary) hypertension Status: Chronic Plan 82-year-old female presented with shortness of breath. # acute hypoxic respiratory failure 89% on 2 L nasal cannula on arrival to the ED. COVID test positive. D-dimer slightly elevated at 0.9. CTA negative for PE but showed cardiomegaly possible atelectasis versus pneumonia. Remains on oxygen supplementation. Flu negative BNP 7740. Troponin came back elevated at 4.2 lactic acid is normal ABG 7.40/42/78/25 with no hypercapnia. # acute COVID infection remdesivir and Decadron started. Will continue same # non-STEMI with acute hypoxia troponin elevated to 28. EKG with subtle depressions and T-wave inversions. Cardiology on board. On heparin drip. Medical treatment due to ongoing COVID infection likely type 2 [place]. on aspirin and Plavix. Stopped IV heparin after 48-72 hour treatment for acute MO. remains on aspirin and Plavix along with statin. Not on beta-raegan due to sinus bradycardia and recent history of symptomatic bradycardia. Remains in 40s to 50s sinus Todd on telemetry # anemia mild chronic normocytic normal normochromic. 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 Well compensated continue losartan and spironolactone. Not on beta-raegan due to symptomatic bradycardia in recent admission # hypertension # hypothyroidism # obesity # type 2 diabetes mellitus SSI hold metformin # dVT prophylaxis on heparin drip which will be stopped and switched to Lovenox DVT prophylaxis dose # code status full code Subjective Date/time seen: 02/09/23 16:24 Interval history: No overnight events. Feeling better. Generalized weakness persist. Working with therapy. Shortness of breath is resolved no chest pain minimal cough Review of Systems Review of Systems: All systems reviewed & are unremarkable except as noted in HPI and below Exam Narrative: APPEARANCE: Well-appearing elderly female, not in acute distress Head: Normocephalic and atraumatic. EYES: PERRLA/EOMI, conjunctivae clear NOSE: No nasal drainage NECK: Supple. No adenopathy, no masses. RESPIRATORY: Coarse breath sounds throughout.? Airway patent, respirations nonlabored. CARDIOVASCULAR: Regular rate and rhythm without murmurs, rubs, or gallops. ABDOMINAL: Normoactive bowel sounds. Soft, nontender, nondistended. No rebound tenderness or guarding. MUSCULOSKELETAL: non-pitting edema to BLE. Extremities are warm and well-perfused. Moves all extremities well. NEURO: Normal speech. No focal neurologic deficits. SKIN: Skin is warm and dry. No rashes. PSYCHIATRIC: Normal affect/mood. Objective Data Vital Signs Vital Signs: Vital Signs - 24 hr 02/08/23 18:00 02/08/23 20:00 02/08/23 20:00 Temperature 97.6 F Pulse Rate 60 53 L 52 L Respiratory Rate 20 Blood Pressure 125/54 L Pulse Oximetry 98 Oxygen Delivery 02/08/23 20:00 02/08/23 22:00 02/09/23
[2023-02-09 17:09] LABS: Glucose Point of Care 270 mg/dl (65-105)
[2023-02-09] MEDS: SENNA/DOCUSATE SODIUM TABLET 1 TAB PO (20:00)
[2023-02-09] MEDS: ASPIRIN 81 MG ENTERIC TABLET PO (20:00)
[2023-02-09] MEDS: ATORVASTATIN 20 MG TABLET PO (20:00)
[2023-02-09 20:20] LABS: Glucose Point of Care 233 mg/dl (65-105)
[2023-02-10] VITALS (9 sets, daily range): BP systolic 124–140; BP diastolic 51–81; PULSE 41–55; RESP 16–20; TEMP 35.7–36.4; O2SAT 100
--- NOTE | 2023-02-10 00:39 | PC.NURSE ---
This patient, Leila Baugh, was transferred to [[id number] ] on 02/10/23 at 0000. Personal belongings sent with patient. Appropriate documentation sent with patient.
[2023-02-10] MEDS: LEVOTHYROXINE SODIUM 125 MCG TABLET PO (06:18)
[2023-02-10 06:35] LABS: Basophils Percent Auto 0.1 % (0.2-1.2); Eosinophils Percent Auto 0.1 % (0-4.4); Hematocrit 31.3 % (37.0-47.0); Hemoglobin 9.9 g/dL (12.0-15.0); Immature Granulocyte Absolute 0.04 K/mm3 (0.00-0.031); Immature Granulocyte Percent A 0.5 % (0-0.5); Lymphocytes Absolute Auto 0.87 K/mm3 (0.9-3.2); Lymphocytes Percent Auto 11.4 % (18.3-44.2); Mean Corpuscular HGB Conc 31.6 g/dl (32-36); Mean Corpuscular Hemoglobin 29.2 pg (26-34); Mean Corpuscular Volume 92.3 fl (80-100); Mean Platelet Volume 11.6 fl (7.4-10.4); Monocytes Absolute Auto 0.8 K/mm3 (0.1-0.6); Monocytes Percent Auto 9.9 % (2.6-8.5); Platelet Count Result 199 k/mm3 (150-375); Red Blood Count 3.39 M/mm3 (4.2-5.4); Red Cell Distribution Width 15.9 % (11.5-14.5); White Blood Count 7.7 K/mm3 (4.5-10.0)
[2023-02-10 06:45] LABS: Alanine Aminotransferase 23 U/L (6-35); Alkaline Phosphatase 82 U/L (38-126); Anion Gap 2 mmol/L (8-16); Aspartate Amino Transferase 26 U/L (14-36); Bilirubin,Total 0.5 mg/dL (0.2-1.3); Blood Urea Nitrogen 45 mg/dL (7-17); Calcium 8.4 mg/dL (8.4-10.2); Carbon Dioxide 33 mmol/L (22-30); Chloride 101 mmol/L (98-107); Estimated CRCL calculation 29 ml/min; Estimated Glomerular Filt Rate 36; Glucose 145 mg/dL (65-110); Magnesium 2.2 mg/dL (1.6-2.3); Potassium 4.3 mmol/L (3.4-5.0); Sodium 136 mmol/L (137-145)
[2023-02-10 08:08] LABS: Glucose Point of Care 144 mg/dl (65-105)
[2023-02-10] MEDS: ENOXAPARIN 30 MG/0.3 ML SYRINGE SUB-Q (09:34)
[2023-02-10] MEDS: polyethylene glycoL 3350 17 GM POWD.PACK PO (09:35)
[2023-02-10] MEDS: CHOLECALCIFEROL 1,000 UNITS TABLET 2000 UNITS PO (09:35)
[2023-02-10] MEDS: FERROUS SULFATE 324 MG TABLET PO ×2 (09:35→17:31)
[2023-02-10] MEDS: CLOPIDOGREL BISULFATE 75 MG TABLET PO (09:35)
[2023-02-10] MEDS: LOSARTAN POTASSIUM 25 MG TABLET PO (09:35)
[2023-02-10] MEDS: FUROSEMIDE 20 MG TABLET PO (09:35)
[2023-02-10] MEDS: oxyBUTYnin CHLORIDE 5 MG TABLET PO ×2 (09:35→17:31)
[2023-02-10] MEDS: SPIRONOLACTONE 25 MG TABLET PO ×2 (09:35→17:32)
[2023-02-10] MEDS: allopurinoL 100 MG TABLET PO (09:35)
[2023-02-10] MEDS: PANTOPRAZOLE 40 MG TABLET PO ×2 (09:36→17:31)
[2023-02-10 11:49] LABS: HIV 1/2 Ab P24 Ag Result Negative (Negative); Hepatitis B Surface Anti Res Positive; Hepatitis C Virus Antibody Negative (Negative)
[2023-02-10 11:52] LABS: Glucose Point of Care 235 mg/dl (65-105)
[2023-02-10] MEDS: SILVERGEL (ELTA) 45 ML 1 APPLIC TOPICAL (12:12)
[2023-02-10] MEDS: INSULIN ASPART (*BKC) 100 UNITS/ML SUB-Q ×2 (12:12→17:30)
[2023-02-10 13:01] LABS: Hepatitis B Surface Antigen Negative (Negative)
--- NOTE | 2023-02-10 15:09 | PM.IMPN ---
Progress Note: A&P Assessment and Plan (1) Non-STEMI (non-ST elevated myocardial infarction): Code(s): I21.4 - Non-ST elevation (NSTEMI) myocardial infarction Status: Acute (2) COVID-19: Code(s): U07.1 - COVID-19 Status: Acute (3) Congestive heart failure: Code(s): I50.9 - Heart failure, unspecified Status: Acute (4) Adult hypothyroidism: Code(s): E03.9 - Hypothyroidism, unspecified Status: Acute (5) Type 2 diabetes mellitus: Code(s): E11.9 - Type 2 diabetes mellitus without complications Status: Acute (6) Essential (primary) hypertension: Code(s): I10 - Essential (primary) hypertension Status: Chronic Plan 82-year-old female presented with shortness of breath. # acute hypoxic respiratory failure 89% on 2 L nasal cannula on arrival to the ED. COVID test positive. D-dimer slightly elevated at 0.9. CTA negative for PE but showed cardiomegaly possible atelectasis versus pneumonia. Remains on oxygen supplementation. Flu negative BNP 7740. Troponin came back elevated at 4.2 lactic acid is normal ABG 7.40/42/78/25 with no hypercapnia. # acute COVID infection remdesivir and Decadron started. concludes remdesivir. Continue Decadron for total 10 days # non-STEMI with acute hypoxia troponin elevated to 28. EKG with subtle depressions and T-wave inversions. Cardiology on board. On heparin drip. Medical treatment due to ongoing COVID infection likely type 2 [place]. on aspirin and Plavix. Stopped IV heparin after 48-72 hour treatment for acute OR. remains on aspirin and Plavix along with statin. Not on beta-raegan due to sinus bradycardia and recent history of symptomatic bradycardia. Remains in 40s to 50s sinus Todd on telemetry # anemia mild chronic normocytic normal normochromic. 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 Well compensated continue losartan and spironolactone. Not on beta-raegan due to symptomatic bradycardia in recent admission # hypertension # hypothyroidism # obesity # type 2 diabetes mellitus SSI hold metformin # dVT prophylaxis on heparin drip which will be stopped and switched to Lovenox DVT prophylaxis dose # code status full code # disposition: SNF placement required. Awaiting authorization medically stable for discharge. Discussed with Kaylah her daughter over the phone Subjective Date/time seen: 02/10/23 15:09 Interval history: No overnight events. feeling well. no new complaints. working with therapy. sob has improved. Review of Systems Review of Systems: All systems reviewed & are unremarkable except as noted in HPI and below Exam Narrative: APPEARANCE: Well-appearing elderly female, not in acute distress Head: Normocephalic and atraumatic. EYES: PERRLA/EOMI, conjunctivae clear NOSE: No nasal drainage NECK: Supple. No adenopathy, no masses. RESPIRATORY: Coarse breath sounds throughout.? Airway patent, respirations nonlabored. CARDIOVASCULAR: Regular rate and rhythm without murmurs, rubs, or gallops. ABDOMINAL: Normoactive bowel sounds. Soft, nontender, nondistended. No rebound tenderness or guarding. MUSCULOSKELETAL: non-pitting edema to BLE. Extremities are warm and well-perfused. Moves all extremities well. NEURO: Normal speech. No focal neurologic deficits. SKIN: Skin is warm and dry. No rashes. PSYCHIATRIC: Normal affect/mood Objective Data Vital Signs Vital Signs: Vital Signs - 24 hr 02/09/23 16:00 02/09/23 16:00 02/09/23 20:00 Temperature 97.7 F Pulse Rate 42 L 54 L Respira
[2023-02-10 16:52] LABS: Glucose Point of Care 324 mg/dl (65-105)
[2023-02-10] MEDS: ASPIRIN 81 MG ENTERIC TABLET PO (21:14)
[2023-02-10] MEDS: ATORVASTATIN 20 MG TABLET PO (21:14)
[2023-02-10] MEDS: SENNA/DOCUSATE SODIUM TABLET 1 TAB PO (21:14)
[2023-02-10] MEDS: TOLNAFTATE 1% POWDER 45 GM BTL 1 APPLIC TOPICAL (21:21)
[2023-02-10 21:30] LABS: Glucose Point of Care 292 mg/dl (65-105)
[2023-02-11] VITALS (9 sets, daily range): BP systolic 128–141; BP diastolic 63–97; PULSE 44–68; RESP 16; TEMP 35.8–36.4; O2SAT 99–100
[2023-02-11] MEDS: LEVOTHYROXINE SODIUM 125 MCG TABLET PO (06:07)
[2023-02-11 07:45] LABS: Glucose Point of Care 168 mg/dl (65-105)
[2023-02-11] MEDS: ENOXAPARIN 30 MG/0.3 ML SYRINGE SUB-Q (08:29)
[2023-02-11] MEDS: polyethylene glycoL 3350 17 GM POWD.PACK PO (08:29)
[2023-02-11] MEDS: LOSARTAN POTASSIUM 25 MG TABLET PO (08:30)
[2023-02-11] MEDS: CLOPIDOGREL BISULFATE 75 MG TABLET PO (08:30)
[2023-02-11] MEDS: CHOLECALCIFEROL 1,000 UNITS TABLET 2000 UNITS PO (08:30)
[2023-02-11] MEDS: FERROUS SULFATE 324 MG TABLET PO ×2 (08:30→16:45)
[2023-02-11] MEDS: SILVERGEL (ELTA) 45 ML 1 APPLIC TOPICAL (08:30)
[2023-02-11] MEDS: PANTOPRAZOLE 40 MG TABLET PO ×2 (08:30→16:45)
[2023-02-11] MEDS: oxyBUTYnin CHLORIDE 5 MG TABLET PO ×2 (08:31→16:45)
[2023-02-11] MEDS: FUROSEMIDE 20 MG TABLET PO (08:31)
[2023-02-11] MEDS: allopurinoL 100 MG TABLET PO (08:31)
[2023-02-11] MEDS: SPIRONOLACTONE 25 MG TABLET PO ×2 (08:31→16:45)
[2023-02-11] MEDS: TOLNAFTATE 1% POWDER 45 GM BTL 1 APPLIC TOPICAL (08:32)
[2023-02-11] MEDS: TRIAMCINOLONE ACET 0.1% OINT 15 GM TUBE 1 APPLIC TOPICAL ×2 (08:44→16:46)
[2023-02-11] MEDS: HYDROCORTISONE 1% 30 GM CREAM 1 APPLIC TOPICAL ×2 (08:44→16:46)
--- NOTE | 2023-02-11 09:33 | PCNFU ---
Nutrition Follow-Up Complete: Inadequate oral intake related to loss of appetite, acute illness as evidenced by 10% intakes so far Improve PO intake at least 50% meals and supplements - Goal being met Goal: Pt current nutrition is Heart healthy diet. Intakes improved to 60-100%. Ensure Enlive TID for 350 kcals and 20 g protein each. Drinking some Ensure. Nutrition recommendation: Continue with same goals and care plan. Last recorded weight is 86.466 kg. Bowel Motility: No bowel movements charted Labs Reviewed: Hgb 9.9, Hct 31.3, Alb 3.0, Na 136, GFR 36, BUN 45, Cre 1.4, Glu 168 Meds Noted: Plavix, Lasix, spironolactone, protonix, miralax Skin: Non pressure ulcer to foot Additional Notes: Intakes are fair to good. Continue with same orders. Agree with orders. Discharge to SNF when medically able. Monitoring intakes , weights, labs, supplement tolerance, plan of care Follow up in 5 days
[2023-02-11 11:31] LABS: Glucose Point of Care 227 mg/dl (65-105)
[2023-02-11] MEDS: INSULIN ASPART (*BKC) 100 UNITS/ML SUB-Q ×2 (11:47→16:45)
--- NOTE | 2023-02-11 12:13 | PM.IMPN ---
Progress Note: A&P Assessment and Plan (1) Non-STEMI (non-ST elevated myocardial infarction): Code(s): I21.4 - Non-ST elevation (NSTEMI) myocardial infarction Status: Acute (2) COVID-19: Code(s): U07.1 - COVID-19 Status: Acute (3) Congestive heart failure: Code(s): I50.9 - Heart failure, unspecified Status: Acute (4) Adult hypothyroidism: Code(s): E03.9 - Hypothyroidism, unspecified Status: Acute (5) Type 2 diabetes mellitus: Code(s): E11.9 - Type 2 diabetes mellitus without complications Status: Acute (6) Essential (primary) hypertension: Code(s): I10 - Essential (primary) hypertension Status: Chronic Plan 82-year-old female presented with shortness of breath. # acute hypoxic respiratory failure 89% on 2 L nasal cannula on arrival to the ED. COVID test positive. D-dimer slightly elevated at 0.9. CTA negative for PE but showed cardiomegaly possible atelectasis versus pneumonia. Remains on oxygen supplementation. Flu negative BNP 7740. Troponin came back elevated at 4.2 lactic acid is normal ABG 7.40/42/78/25 with no hypercapnia. # acute COVID infection remdesivir and Decadron started. concludes remdesivir. Continue Decadron for total 10 days # non-STEMI with acute hypoxia troponin elevated to 28. EKG with subtle depressions and T-wave inversions. Cardiology on board. On heparin drip. Medical treatment due to ongoing COVID infection likely type 2 WA. on aspirin and Plavix. Stopped IV heparin after 48-72 hour treatment for acute WA. remains on aspirin and Plavix along with statin. Not on beta-raegan due to sinus bradycardia and recent history of symptomatic bradycardia. Remains in 40s to 50s sinus Todd on telemetry # anemia mild chronic normocytic normal normochromic. 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 Well compensated continue losartan and spironolactone. Not on beta-raegan due to symptomatic bradycardia in recent admission # obesity # type 2 diabetes mellitus SSI hold metformin # dVT prophylaxis Lovenox DVT prophylaxis dose # code status full code # disposition: SNF placement required. Awaiting authorization. medically stable for discharge. Subjective Date/time seen: 02/11/23 12:13 No new issues overnight Review of Systems Review of Systems: All systems reviewed & are unremarkable except as noted in HPI and below Exam Narrative: APPEARANCE: Well-appearing elderly female, not in acute distress Head: Normocephalic and atraumatic. EYES: PERRLA/EOMI, conjunctivae clear NOSE: No nasal drainage NECK: Supple. No adenopathy, no masses. RESPIRATORY: Coarse breath sounds throughout.? Airway patent, respirations nonlabored. CARDIOVASCULAR: Regular rate and rhythm without murmurs, rubs, or gallops. ABDOMINAL: Normoactive bowel sounds. Soft, nontender, nondistended. No rebound tenderness or guarding. MUSCULOSKELETAL: non-pitting edema to BLE. Extremities are warm and well-perfused. Moves all extremities well. NEURO: Normal speech. No focal neurologic deficits. SKIN: Skin is warm and dry. No rashes. PSYCHIATRIC: Normal affect/mood Objective Data Vital Signs Vital Signs: Vital Signs - 24 hr 02/10/23 14:11 02/10/23 16:00 02/10/23 20:00 Temperature 97.2 F L Pulse Rate 55 L 53 L 51 L Respiratory Rate 20 Blood Pressure 124/81 Pulse Oximetry 100 02/10/23 21:50 02/11/23 00:00 02/11/23 04:00 Temperature 97.5 F L Pulse Rate 55 L 44 L 46 L Respiratory Rate 16 Blood Pressure 131/51 L Pulse Oxi
[2023-02-11 16:36] LABS: Glucose Point of Care 322 mg/dl (65-105)
[2023-02-11] MEDS: SENNA/DOCUSATE SODIUM TABLET 1 TAB PO (21:07)
[2023-02-11] MEDS: ASPIRIN 81 MG ENTERIC TABLET PO (21:07)
[2023-02-11] MEDS: ATORVASTATIN 20 MG TABLET PO (21:07)
[2023-02-12] VITALS (7 sets, daily range): BP systolic 130–133; BP diastolic 50; PULSE 42–57; RESP 16–18; TEMP 36.6; O2SAT 98–99
[2023-02-12] MEDS: LEVOTHYROXINE SODIUM 125 MCG TABLET PO (05:55)
[2023-02-12 07:38] LABS: Glucose Point of Care 133 mg/dl (65-105)
[2023-02-12] MEDS: allopurinoL 100 MG TABLET PO (09:09)
[2023-02-12] MEDS: CHOLECALCIFEROL 1,000 UNITS TABLET 2000 UNITS PO (09:09)
[2023-02-12] MEDS: CLOPIDOGREL BISULFATE 75 MG TABLET PO (09:09)
[2023-02-12] MEDS: ENOXAPARIN 30 MG/0.3 ML SYRINGE SUB-Q (09:09)
[2023-02-12] MEDS: FUROSEMIDE 20 MG TABLET PO (09:10)
[2023-02-12] MEDS: oxyBUTYnin CHLORIDE 5 MG TABLET PO ×2 (09:10→17:02)
[2023-02-12] MEDS: LOSARTAN POTASSIUM 25 MG TABLET PO (09:10)
[2023-02-12] MEDS: SPIRONOLACTONE 25 MG TABLET PO ×2 (09:10→17:02)
[2023-02-12] MEDS: FERROUS SULFATE 324 MG TABLET PO ×2 (09:10→17:02)
[2023-02-12] MEDS: PANTOPRAZOLE 40 MG TABLET PO ×2 (09:10→17:02)
[2023-02-12] MEDS: SILVERGEL (ELTA) 45 ML 1 APPLIC TOPICAL (09:12)
[2023-02-12] MEDS: polyethylene glycoL 3350 17 GM POWD.PACK PO (09:22)
--- NOTE | 2023-02-12 10:55 | PM.IMPN ---
Progress Note: A&P Assessment and Plan (1) Non-STEMI (non-ST elevated myocardial infarction): Code(s): I21.4 - Non-ST elevation (NSTEMI) myocardial infarction Status: Acute (2) COVID-19: Code(s): U07.1 - COVID-19 Status: Acute (3) Congestive heart failure: Code(s): I50.9 - Heart failure, unspecified Status: Acute (4) Adult hypothyroidism: Code(s): E03.9 - Hypothyroidism, unspecified Status: Acute (5) Type 2 diabetes mellitus: Code(s): E11.9 - Type 2 diabetes mellitus without complications Status: Acute (6) Essential (primary) hypertension: Code(s): I10 - Essential (primary) hypertension Status: Chronic Plan 82-year-old female presented with shortness of breath. # acute hypoxic respiratory failure 89% on 2 L nasal cannula on arrival to the ED. COVID test positive. D-dimer slightly elevated at 0.9. CTA negative for PE but showed cardiomegaly possible atelectasis versus pneumonia. Flu negative BNP 7740. Troponin came back elevated at 4.2 lactic acid is normal ABG 7.40/42/78/25 with no hypercapnia. Currently on room air # acute COVID infection remdesivir and Decadron started. concludes remdesivir. Continue Decadron for total 10 days # non-STEMI with acute hypoxia troponin elevated to 28. EKG with subtle depressions and T-wave inversions. Cardiology on board. On heparin drip. Medical treatment due to ongoing COVID infection likely type 2 GA. on aspirin and Plavix. Stopped IV heparin after 48-72 hour treatment for acute GA. remains on aspirin and Plavix along with statin. Not on beta-raegan due to sinus bradycardia and recent history of symptomatic bradycardia. # anemia mild chronic normocytic normal normochromic. 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 continue levothyroxine as previously prescribed # history of recurrent falls # history of TIA # coronary artery disease status post CABG # congestive heart failure last echo 01/14/2023 with EF 60-65% grade 2 diastolic dysfunction. Well compensated continue losartan and spironolactone. Not on beta-raegan due to symptomatic bradycardia in recent admission # obesity # type 2 diabetes mellitus SSI hold metformin # disposition: SNF placement required. Awaiting authorization. medically stable for discharge. Subjective Date/time seen: 02/12/23 10:55 No overnight issues. Resting comfortably in chair. Not on oxygen Review of Systems Review of Systems: All systems reviewed & are unremarkable except as noted in HPI and below Exam Narrative: APPEARANCE: Well-appearing elderly female, not in acute distress Head: Normocephalic and atraumatic. EYES: PERRLA/EOMI, conjunctivae clear NOSE: No nasal drainage NECK: Supple. No adenopathy, no masses. RESPIRATORY: Coarse breath sounds throughout.? Airway patent, respirations nonlabored. CARDIOVASCULAR: Regular rate and rhythm without murmurs, rubs, or gallops. ABDOMINAL: Normoactive bowel sounds. Soft, nontender, nondistended. No rebound tenderness or guarding. MUSCULOSKELETAL: non-pitting edema to BLE. Extremities are warm and well-perfused. Moves all extremities well. NEURO: Normal speech. No focal neurologic deficits. SKIN: Skin is warm and dry. No rashes. PSYCHIATRIC: Normal affect/mood Objective Data Vital Signs Vital Signs: Vital Signs - 24 hr 02/11/23 12:00 02/11/23 14:00 02/11/23 16:00 Temperature 96.4 F L Pulse Rate 48 L 52 L 50 L Respiratory Rate 16 Blood Pressure 128/67 Pulse Oximetry 99 Oxygen Delivery 02/11/23 22:00 02/11/23 20:00 02/12/23 00:00 Temperature 97.6 F Pulse Rate 48 L 50 L 42 L Respiratory Rate 16 Blood Pressure 141/97 H Pulse Oximetry 100 Oxygen Delivery 02/12/23 04:00 02/12/23 05:25 02/12/23 09:10 Temperature 97.8 F Pulse
[2023-02-12 11:27] LABS: Glucose Point of Care 169 mg/dl (65-105)
[2023-02-12 16:18] LABS: Glucose Point of Care 348 mg/dl (65-105)
[2023-02-12] MEDS: INSULIN ASPART (*BKC) 100 UNITS/ML SUB-Q (16:58)
[2023-02-12 17:20] LABS: EDCOVIDSCREEN Positive (Negative)
--- NOTE | 2023-02-12 17:46 | PC.NURSE ---
Attempted to call to give report to [facility] at 0517. Nurse unable to take report, left callback number for them to return call.
--- NOTE | 2023-02-12 18:14 | PC.NURSE ---
Attempted to call [facility] again to give report on patient. Nurse still unavailable. Callback number provided.
--- NOTE | 2023-02-12 18:59 | PC.NURSE ---
Attempted to call report for the third time at 18:52. Nurse still unavailable, left on held for eight minutes with facility with no answer. Faxing over discharge instructions to facility.
--- NOTE | 2023-02-13 09:01 | PM.DS ---
DS: Admitting Diagnosis Discharge Date 02/12/23 Admitting Diagnosis Dyspnea DS: Discharge Diagnosis Discharge Diagnosis (1) COVID-19: Code(s): U07.1 - COVID-19 Status: Acute (2) Acute hypoxemic respiratory failure: Code(s): J96.01 - Acute respiratory failure with hypoxia Status: Acute (3) Congestive heart failure: Code(s): I50.9 - Heart failure, unspecified Status: Acute (4) Non-STEMI (non-ST elevated myocardial infarction): Code(s): I21.4 - Non-ST elevation (NSTEMI) myocardial infarction Status: Acute DS: Summary Hospital Course Hospital Course: 82-year-old female presented with shortness of breath. # acute hypoxic respiratory failure 89% on 2 L nasal cannula on arrival to the ED.? COVID test positive.? D-dimer slightly elevated at 0.9.? CTA negative for PE but showed cardiomegaly possible atelectasis versus pneumonia. ? Flu negative BNP 7740.? Troponin came back elevated at 4.2 lactic acid is normal ABG 7.40/42/78/25 with no hypercapnia.? Currently on room air # acute COVID infection remdesivir and Decadron started.? concludes remdesivir.? Continue Decadron for total 10 days # non-STEMI with acute hypoxia troponin elevated to 28.? EKG with subtle depressions and T-wave inversions.? Cardiology on board.? On heparin drip.? Medical treatment due to ongoing COVID infection likely type 2 GA. on aspirin and Plavix.? Stopped IV heparin after 48-72 hour treatment for acute GA. remains on aspirin and Plavix along with statin.? Not on beta-raegan due to sinus bradycardia and recent history of symptomatic bradycardia. # anemia mild chronic normocytic normal normochromic.? 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 continue levothyroxine as previously prescribed # history of recurrent falls # history of TIA # coronary artery disease status post CABG # congestive heart failure last echo 01/14/2023 with EF 60-65% grade 2 diastolic dysfunction.? Well compensated continue losartan and spironolactone.? Not on beta-raegan due to symptomatic bradycardia in recent admission # obesity # type 2 diabetes mellitus SSI hold metformin # disposition:? SNF placement Time Spent with Patient Time attestation: Total time spent providing and/or coordinating discharge services: Exam Narrative: APPEARANCE: Well-appearing elderly female, not in acute distress Head: Normocephalic and atraumatic. EYES: PERRLA/EOMI, conjunctivae clear NOSE: No nasal drainage NECK: Supple. No adenopathy, no masses. RESPIRATORY: Coarse breath sounds throughout.? Airway patent, respirations nonlabored. CARDIOVASCULAR: Regular rate and rhythm without murmurs, rubs, or gallops. ABDOMINAL: Normoactive bowel sounds. Soft, nontender, nondistended. No rebound tenderness or guarding. MUSCULOSKELETAL: non-pitting edema to BLE. Extremities are warm and well-perfused. Moves all extremities well. NEURO: Normal speech. No focal neurologic deficits. SKIN: Skin is warm and dry. No rashes. PSYCHIATRIC: Normal affect/mood DS: Data Data Completed and Pending Labs on day of discharge: Labs from last 24 hours 02/12/23 02/12/23 02/12/23 16:54 16:09 11:16 POC Capillary Glucose 348 H 169 H SARS-CoV-2 IgG/IgM Ag?Rapid Positive Discharge Plan Discharge Consulting providers: Eva Phillips Discharging Clinician: Alvin Jeter Anticipated Discharge Date/Time: 02/12/23 16:11 Patient Disposition: SNF Activity: as tolerated Diet: heart healthy Patient Instructions: Clopidogrel (By mouth), Pain Management in Older Adults (DC), COVID-19 (Coronavirus Disease 2019) (DC) Stand Alone Forms: General Discharge Information Follow-up/Referrals: Rodo Gutiérrez DO [Primary Care Provider] - Call for Appointment Discharge Medications: Continued aspirin [
== END 2023-02-12 20:05 | DRG 177 ==
LOC: ANHED 13:17 → ANHIMU 16:10 → ANH3MEDSUR 02-10 00:55
PROVIDERS: Internal Medicine; Nurse Practitioner; Nurse Practitioner Family; Admitting Provider Student in an Organized Health Care Education/Training Program; Emergency Provider Physician Assistant; PCP Internal Medicine; Visit Provider Hospitalist
DX: U07.1 COVID-19 (principal); I21.A1 Myocardial infarction type 2; J96.01 Acute respiratory failure with hypoxia; I50.32 Chronic diastolic (congestive) heart failure; I13.0 Hypertensive heart and chronic kidney disease with heart failure and stage 1 through stage 4 chronic kidney disease, or unspecified chronic kidney disease; E11.22 Type 2 diabetes mellitus with diabetic chronic kidney disease; N18.30 Chronic kidney disease, stage 3 unspecified; E11.319 Type 2 diabetes mellitus with unspecified diabetic retinopathy without macular edema; I25.10 Atherosclerotic heart disease of native coronary artery without angina pectoris; D64.9 Anemia, unspecified; E03.9 Hypothyroidism, unspecified; R29.6 Repeated falls; E66.9 Obesity, unspecified; Z68.37 Body mass index [BMI] 37.0-37.9, adult; Z95.1 Presence of aortocoronary bypass graft; Z86.73 Personal history of transient ischemic attack (TIA), and cerebral infarction without residual deficits; Z79.82 Long term (current) use of aspirin; Z90.49 Acquired absence of other specified parts of digestive tract; Z96.659 Presence of unspecified artificial knee joint
CPT/HCPCS: 36415; 36600; 71275; 80053; 82805; 82948; 83036; 83605; 83690; 83735; 83880; 84439; 84443; 84480; 84484; 85025; 85380; 85610; 85730; 86703; 86706; 86803; 87340; 87426; 87636; 93005; 94640; 96365; 96367; 96375; 96376; 97110; 97116; 97161; 97165; 97530; 97535; 99285; A9270; C9803; G0378; G0432; J0131; J0248; J1100; J1644; J1650; J1815; J3475; Q9967

== ENCOUNTER 2023-02-27 11:18 | Outpatient (CLI) | payer MEDICARE, SELFPAY ==
--- NOTE | ~2023-02-27 | CT_ITS ---
EXAMINATION: CT diagnostic chest wo con DATE: 02/27/2023 11:54 INDICATION: TIA. TECHNIQUE: Computed tomography (CT) of the chest was performed without intravenous contrast. The dose -length product was 237.16 mGy-cm. Automated exposure control and iterative reconstruction technique were employed. COMPARISON: CT dated 02/05/2023 FINDINGS: There is atherosclerosis of the aorta and coronary arteries. Cardiomegaly. No significant p leural or pericardial effusion. There is ventral hernia in the upper abdomen containing a segment of the left hepatic lobe and stomach. No obstruction. No thoracic lymphadenopathy. There is patchy groun dglass opacification involving all lobes, consistent with pneumonia. No endobronchial lesions. There are scattered areas of subsegmental atelectasis/scarring. No endobronchial lesions. No pneumothorax. Status post median sternotomy for CABG. IMPRESSION: 1. Patchy bilateral areas of groundglass opacification, consistent with pneumonia. 2: Cardiomegaly. Reviewed, dictated and finalized at location B. IMPRESSION: 1. Patchy bilateral areas of groundglass opacification, consistent with pneumon ia. 2: Cardiomegaly.
== END 2023-02-27 11:19 | disposition home or self-care (01) ==
PROVIDERS: PCP Internal Medicine; Visit Provider Family Medicine
DX: G45.9 Transient cerebral ischemic attack, unspecified (principal); I51.7 Cardiomegaly; R91.8 Other nonspecific abnormal finding of lung field
CPT/HCPCS: 71250

== ENCOUNTER 2023-06-16 11:41 | Outpatient (CLI) | payer OTHER, MEDICARE, SELFPAY ==
--- NOTE | ~2023-06-16 | US_ITS ---
EXAMINATION: US arterial duplex [facility] DATE: 06/16/2023 12:55 INDICATION: Assess for pseudoaneurysm at the left groin post surgery. TECHNIQUE: Multiple grayscale and Doppler ultrasound images of the left groin were obtained. COMPARISON: None FINDINGS: Normal arterial waveforms and grayscale appearance to the left common femoral, superficial femoral an d profunda femoral arteries. Normal appearance and venous waveforms in the left common femoral and kenyon perficial femoral veins. No pseudoaneurysm, hematoma or arteriovenous fistulas. IMPRESSION: 1. Normal study. No pseudoaneurysm, hematoma or arteriovenous fistulas at the left groin. Reviewed, dictated and finalized at location L. IMPRESSION: 1. Normal study. No pseudoaneurysm, hematoma or arteriovenous fistulas at the l t groin.
== END 2023-06-16 11:42 | disposition home or self-care (01) ==
PROVIDERS: PCP Internal Medicine; Visit Provider Nurse Practitioner Adult Health
DX: Z48.812 Encounter for surgical aftercare following surgery on the circulatory system (principal); I77.0 Arteriovenous fistula, acquired
CPT/HCPCS: 93926

== ENCOUNTER 2023-08-17 10:09 | Inpatient (IN) | payer MEDICARE, SELFPAY ==
[2023-08-17] VITALS (26 sets, daily range): BP systolic 91–191; BP diastolic 36–122; PULSE 32–52; RESP 8–20; TEMP 36.2–36.4; O2SAT 93–100; BMI 40.3
--- NOTE | ~2023-08-17 | CT_ITS ---
EXAMINATION: CT brain wo con DATE: 08/17/2023 12:10 INDICATION: Altered mental status. TECHNIQUE: Computed tomography (CT) of the head was performed without intravenous contrast. The mA wa s adjusted according to patient size. Iterative reconstruction technique was employed. The dose-lengt h product was 529.67 mGy-cm. COMPARISON: Head CT 01/13/2023 FINDINGS: There is no intracranial hemorrhage, acute infarction, or abnormal intracranial mass lesion . There are scattered areas of low attenuation in the cerebral white matter. The ventricles are dajuan l in size. There is mild mucosal thickening in the ethmoid sinuses. The mastoid air cells are normal. There are likely changes of ocular lens replacement surgeries. IMPRESSION: 1. Stable mild nonspecific cerebral white matter disease, which likely represents chronic small vesse l ischemic disease. Reviewed, dictated and finalized at location E. IMPRESSION: 1. Stable mild nonspecific cerebral white matter disease, which likely represen ts chronic small vessel ischemic disease.
--- NOTE | ~2023-08-17 | US_ITS ---
EXAMINATION: US venous doppler [facility] DATE: 08/17/2023 22:22 INDICATION: bilateral lower extremity edema . TECHNIQUE: Grayscale images without and with compression and Doppler images of the bilateral lower ex tremity veins were obtained. COMPARISON: 10/18/2022 FINDINGS: The right common femoral vein, profunda (deep) femoral vein, femoral vein, popliteal vein, peroneal v ein, posterior tibial veins, gastrocnemius vein, and greater saphenous vein are patent. The left common femoral vein, profunda (deep) femoral vein, femoral vein, popliteal vein, peroneal v ein, posterior tibial veins, gastrocnemius vein, and greater saphenous vein are patent. IMPRESSION: Patent bilateral lower extremity veins. No evidence of deep venous thrombosis. Reviewed, dictated and finalized at location K.
--- NOTE | ~2023-08-17 | XR_ITS ---
XR chest 1V portable DATE: 08/17/2023 11:12 INDICATION: Altered mental status, COVID positive. TECHNIQUE: Portable supine AP chest on 08/17/2023 at 1108 hours COMPARISON: 02/27/2023 CT chest FINDINGS: Status post sternotomy; multiple broken sutures. There is cardiomegaly. There is aortic calcification. There is pulmonary vascular congestion and bi lateral perihilar infiltrates suggesting pulmonary edema; differential diagnosis includes pneumonia. IMPRESSION: Cardiomegaly and congestive changes, suspected perihilar pulmonary edema. Pneumonia is no t excluded Aortic atherosclerosis Reviewed, dictated and finalized at location B. IMPRESSION: Cardiomegaly and congestive changes, suspected perihilar pulmonary edema. Pneumonia is not excluded Aortic atherosclerosis
--- NOTE | 2023-08-17 11:00 | ECG_ITS ---
Measurements Intervals [place] Rate: 44 P: WI: 0 QRS: 80 QRSD: 102 T: 90 QT: 483 QTc: 416 Interpretive Statements SINUS BRADYCARDIA NONSPECIFIC ST & T-WAVE ABNORMALITY ABNORMAL RHYTHM ECG COMPARED TO ECG 02/05/2023 11:38:19 HEART RATE IS REDUCED NO OTHER SIGNIFICANT CHANGE Electronically Signed On 08-17-2023 13:40:25 CDT by Mitchell Guevara M.D.
[2023-08-17 11:29] LABS: Glucose Point of Care 80 mg/dl (65-105)
[2023-08-17 11:34] LABS: Basophils Percent Auto 0.4 % (0.2-1.2); Eosinophils Absolute Auto 0.7 K/mm3 (0-0.3); Eosinophils Percent Auto 9.4 % (0-4.4); Hematocrit 31.1 % (37.0-47.0); Hemoglobin 9.8 g/dL (12.0-15.0); Immature Granulocyte Absolute 0.01 K/mm3 (0.00-0.031); Immature Granulocyte Percent A 0.1 % (0-0.5); Lymphocytes Absolute Auto 0.92 K/mm3 (0.9-3.2); Lymphocytes Percent Auto 12.2 % (18.3-44.2); Mean Corpuscular HGB Conc 31.5 g/dl (32-36); Mean Corpuscular Hemoglobin 30.4 pg (26-34); Mean Corpuscular Volume 96.6 fl (80-100); Mean Platelet Volume 10.9 fl (7.4-10.4); Monocytes Absolute Auto 0.8 K/mm3 (0.1-0.6); Monocytes Percent Auto 11.1 % (2.6-8.5); Neutrophils Absolute Auto 5.1 K/mm3 (1.3-6.7); Neutrophils Percent Auto 66.8 % (45.5-73.1); Platelet Count Result 196 k/mm3 (150-375); Red Blood Count 3.22 M/mm3 (4.2-5.4); Red Cell Distribution Width 14.8 % (11.5-14.5); White Blood Count 7.6 K/mm3 (4.5-10.0)
[2023-08-17] MEDS: NALOXONE HCL 0.4 MG/ML VIAL IV PUSH (11:35)
[2023-08-17 11:42] LABS: Alveolar/Arterial O2 Gradient 36.1 mmHg; Base Excess ABG 3.3 mEq/l (+/-2.0); Fractional Inspired Oxygen 21 %; HCO3 ABG 28.2 mEq/l (22.0-26.0); Oxygen Content ABG 13.7 %vol (16.0-22.0); Oxygen Saturation ABG 91.9 % (95.0-100.0); PCO2 ABG 43.9 mmHg (35.0-45.0); PO2 ABG 61.1 mmHg (80.0-100.0); PO2 FiO2 Ratio Arterial Blood 2.91 %; Total Hemoglobin 10.8 g/dL (12.0-18.0); pH ABG 7.425 (7.350-7.450)
[2023-08-17 11:44] LABS: Modified Allen's Test Pass; Site Drawn RIGHT RADIAL
[2023-08-17 11:45] LABS: INR 1.1; Prothrombin Time 14.8 Seconds (11.1-14.7)
[2023-08-17 11:46] LABS: Partial Thromboplastin Time 34.3 SECONDS (22.3-36.8)
[2023-08-17 12:16] LABS: Alanine Aminotransferase 16 U/L (6-35); Albumin Level 3.3 g/dL (3.5-5.1); Alkaline Phosphatase 119 U/L (38-126); Anion Gap 5 mmol/L (8-16); Aspartate Amino Transferase 24 U/L (14-36); Bilirubin,Total 0.6 mg/dL (0.2-1.3); Blood Urea Nitrogen 24 mg/dL (7-17); Calcium 9.3 mg/dL (8.4-10.2); Carbon Dioxide 30 mmol/L (22-30); Chloride 105 mmol/L (98-107); Estimated CRCL calculation 36 ml/min; Estimated Glomerular Filt Rate 43; Glucose 91 mg/dL (65-110); Potassium 3.9 mmol/L (3.4-5.0); Sodium 140 mmol/L (137-145)
--- NOTE | 2023-08-17 12:25 | ED.AMS ---
HPI - Altered Mental Status General Chief Complaint: Altered Mental Status Stated Complaint: unresponsive Time Seen by Provider: 08/17/23 10:24 Source: RN notes reviewed Mode of arrival: EMS Limitations: clinical condition History of Present Illness HPI narrative: This is an 83 year old female who presents for evaluation of altered mental status. PAtient was discharged from a hospital on Thursday after treatment for CHF. IT is reported that patient was also positive for covid on Thursday. FAmily states patient started being confused last Thursday so they took her to [facility] on Thursday. She was discharged on Thursday after evaluation showing covid and CHF. They report patient has been unresponsive since 9 pm last night. They report patient does not take pain medication. Related Data Home Medications Medication Instructions Recorded Confirmed aspirin 81 mg tablet,delayed 81 mg PO HS 03/26/20 08/17/23 release (Adult Low Dose Aspirin) atorvastatin 20 mg tablet 20 mg PO HS 03/26/20 08/17/23 losartan 25 mg tablet 25 mg PO DAILY 03/26/20 08/17/23 clopidogrel 75 mg tablet 75 mg PO HS 10/17/21 08/17/23 acetaminophen 650 mg tablet 650 mg PO Q6H PRN Pain 02/05/23 08/17/23 cyanocobalamin (vitamin B-12) 1,000 mcg IM DIRECTED 02/05/23 08/17/23 1,000 mcg/mL injection solution ferrous sulfate 325 mg (65 mg 325 mg PO DAILY 02/05/23 08/17/23 iron) tablet levothyroxine 125 mcg tablet 137 mcg PO DAILY 02/05/23 08/17/23 naproxen 250 mg tablet 250 mg PO BID PRN pain 07/03/23 08/17/23 enoxaparin 30 mg/0.3 mL 30 mg subcut DAILY 08/17/23 08/17/23 subcutaneous syringe furosemide 40 mg tablet 40 mg PO DAILY 08/17/23 08/17/23 pantoprazole 40 mg tablet,delayed 40 mg PO DAILY 08/17/23 08/17/23 release Allergies Allergy/AdvReac Type Severity Reaction Status Date / Time lisinopril Allergy Intermediate Difficulty Verified 07/03/23 13:48 Breathing Review of Systems Review of Systems: ROS unobtainable: Yes unobtainable due to medical condition and unobtainable due to mental status PMFSH Past Medical History Medical History Chronic anemia Chronic kidney disease Coronary artery disease Diastolic congestive heart failure Erosive gastritis Hyperlipidemia Hypertension Hypothyroidism Hypothyroidism Obesity Pulmonary hypertension Retinopathy Sick sinus syndrome Type 2 diabetes mellitus Surgical History Surgical History (Updated 08/17/23 @ 20:09 by Bety Ac PA-C) History of cholecystectomy History of coronary artery bypass graft History of knee replacement History of repair of rotator cuff History of tonsillectomy History of tubal ligation Family History Family History Sibling Patient's sister is in good health Family history of diabetes mellitus in first degree relative Patient's brother is in good health Father Family history of diabetes mellitus in first degree relative Patient's father is Mother Patient's mother is Social History Social History Social History: The patient is and has 3 children. The patient is retired from [employer]. She has never smoked. She does not use any alcohol marijuana or illicit drugs. 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 She is from [facility] status full code Smoking status: Never smoker Second hand tobacco smoke exposure: No Alcohol intake: current Drinks per week: 1 Alcohol use details: socially Substance use: never Substance use type: does not use Lack of Transportation: No Lack of Food: Never True Current Housing: I Have Housing Concerned About Future Housing: No Difficulty Paying Gas/Electric Bills: No Difficulty Paying for Meds: No Currently Unemployed: No Education: High School Di
[2023-08-17 12:28] LABS: Troponin I 0.025 ng/mL (0.000-0.034)
--- NOTE | 2023-08-17 12:53 | PC.NURSE ---
Pt family asked to speak with care coordination, care coordination notified and on way
[2023-08-17 13:23] LABS: Appearance Urine Clear (Clear); Bacteria Urine None Seen /hpf; Bilirubin Urine Negative (Negative); Blood Urine Negative (Negative); Color Urine Yellow (Yellow); Glucose Urine UA Negative (Negative); Ketones Urine Negative (Negative); Leukocyte Esterase Ur Negative LEU/UL (Negative); Nitrate Urine Negative (Negative); Non Pathogenic Casts 0-2; Protein Urine 2+ mg/dL (Negative); RBC Urine 0-2 /hpf (0-2); Specific Grav Ur 1.013 (1.001-1.035); Squamous Epithelial Cell Urine None seen /hpf (Few); WBC Urine 0-5 /hpf
[2023-08-17 13:30] LABS: Add Urine Microscopic? YES
[2023-08-17 13:40] LABS: Amphetamine Screen Urine Negative (Negative); Barbiturate Screen Urine Negative (Negative); Benzodiazepines Screen Urine Negative (Negative); Cannabinoid Screen Urine Negative (Negative); Cocaine Screen Urine Negative (Negative); Methadone Screen Urine Negative (Negative); Opiate Screen Urine Negative (Negative); Phencyclidine Screen Urine Negative (Negative)
[2023-08-17 14:26] LABS: NT Pro B Type Natriuretic Pept 9280 pg/mL (19.9-100)
[2023-08-17 14:46] LABS: SARS-CoV-2 RNA PCR Negative (Negative)
--- NOTE | 2023-08-17 15:03 | PM.IMHP ---
H&P: HPI History of Present Illness Date/Time: 08/17/23 14:30 Chief Complaint: Unresponsive. Narrative: This is an 83-year-old female with coronary artery disease status post bypass in 2010, sick sinus syndrome, diastolic dysfunction grade 2 with a recent EF of 60 to 65%, severe pulmonary hypertension, hypertension, type 2 diabetes mellitus, hypothyroidism, chronic anemia, and chronic kidney disease who presented to the emergency department via EMS from [facility] for evaluation after she was found unresponsive by staff. She was admitted to [facility] last week after presenting to their facility following several falls, reportedly treated for congestive heart failure. She was discharged this past Thursday. This morning staff at her facility found her unresponsive and EMS was summoned. On their arrival and upon arrival to the ED she was responsive only to noxious stimuli. She was given 0.4 mg IV naloxone and she started to arouse thereafter however she is not on narcotics and urine drug screen was negative for the same. At the time my evaluation she is alert and oriented x2 and cannot tell me why she was brought to the hospital today. She has no current complaints and she denies headache, fever, sinus congestion, sore throat, cough, chest pain, shortness a breath, nausea, vomiting, diarrhea, and dysuria. In the ED: Blood pressures were stable on arrival and have been pretty consistent in the 160s to 180 systolic with an isolated blood pressure reading of 91/77. She has been afebrile. Heart rate has ranged anywhere from the upper 30s to low 50s which is not unusual for her. Labs were reviewed and they are not significantly changed from prior studies although her proBNP is a bit elevated. Urine showed 2+ protein but was otherwise unremarkable. Urine drug screen was negative. SARS-CoV-2 by PCR was also negative. Brain CT showed no acute findings. Chest x-ray showed congestive changes and suspected perihilar pulmonary edema though pneumonia is not excluded. She is being admitted in this setting for further evaluation of the unresponsive episode. Review of Systems Review of Systems: Twelve systems were reviewed and are negative except for as per HPI. [facility] Past Medical History Medical History (Updated 08/17/23 @ 20:22 by Bety Ac PA-C) Chronic anemia Chronic kidney disease Coronary artery disease Diastolic congestive heart failure Erosive gastritis Hyperlipidemia Hypertension Hypothyroidism Hypothyroidism Obesity Pulmonary hypertension Retinopathy Sick sinus syndrome Type 2 diabetes mellitus Surgical History Surgical History (Updated 08/17/23 @ 20:09 by Bety Ac PA-C) History of cholecystectomy History of coronary artery bypass graft History of knee replacement History of repair of rotator cuff History of tonsillectomy History of tubal ligation Family History Family History Sibling Patient's sister is in good health Family history of diabetes mellitus in first degree relative Patient's brother is in good health Father Family history of diabetes mellitus in first degree relative Patient's father is Mother Patient's mother is Social History Social History Social History: The patient is and has 3 children. The patient is retired from [employer]. She has never smoked. She does not use any alcohol marijuana or illicit drugs. Her children on the durable power health care attorney for healthcare. She is from [facility] Code status full code Smoking status: Never smoker Second hand tobacco smoke exposure: No Alcohol intake: current Drinks per week: 1 Alcohol use details: socially Substance use: never Substance use type: does not use Lack of Transportation: No Lack of Food: Never True Current Housing: I Have [facility]
--- NOTE | 2023-08-17 18:24 | ADMGEN ---
This patient, Leila Baugh, was admitted to 3 [facility] Surg Room 307-01 at 1530. Patient/family oriented to hospital policies and general routines including ID bracelet, bed and alarms, visiting hours, pain management, procedures, bathroom and other care routines, personal items, smoking policy, room service/diet, and visiting hours. Information on how to activate the Rapid Response Team has been discussed. Patient/Family are encouraged to report perceived risks to care and to ask questions if they do not understand what they are told or what they should do.
[2023-08-17 20:03] LABS: Glucose Point of Care 84 mg/dl (65-105)
[2023-08-17 20:28] LABS: Glucose Point of Care 93 mg/dl (65-105)
[2023-08-17 21:10] LABS: Ammonia < 9 umol/L (9-30)
[2023-08-17 21:30] LABS: Magnesium 2.1 mg/dL (1.6-2.3)
[2023-08-17 22:19] LABS: Alveolar/Arterial O2 Gradient 17.8 mmHg; Base Excess ABG 2.5 mEq/l (+/-2.0); Carboxyhemoglobin 0.3 % THb (0-2.0); Fractional Inspired Oxygen 21 %; HCO3 ABG 26.8 mEq/l (22.0-26.0); Methemoglobin ABG 0.3 %THb (0-1.5); Oxygen Content ABG 14.5 %vol (16.0-22.0); Oxygen Saturation ABG 96.6 % (95.0-100.0); Oxyhemoglobin 94.8 % THb (90.0-100.0); PCO2 ABG 40.3 mmHg (35.0-45.0); PO2 ABG 83.7 mmHg (80.0-100.0); PO2 FiO2 Ratio Arterial Blood 3.99 %; Reduced Hemoglobin 4.6 %THb (0-5.0); Total Hemoglobin 10.8 g/dL (12.0-18.0); pH ABG 7.441 (7.350-7.450)
[2023-08-17 22:21] LABS: Vitamin B12 > 1000.0 pg/mL (239-931)
[2023-08-17 22:22] LABS: Device ROOM AIR; Modified Allen's Test Pass; Site Drawn RIGHT RADIAL
[2023-08-17 22:34] LABS: Free T4 Free Thyroxine Reflex 1.44 ng/dL (0.78-2.19)
[2023-08-17] MEDS: FUROSEMIDE INJ 40 MG/4 ML VIAL 20 MG IV PUSH (22:51)
[2023-08-17 23:14] LABS: Total Triiodothyronine (T3) 1.09 NG/ML (0.97-1.69)
[2023-08-18] VITALS (7 sets, daily range): BP systolic 159–160; BP diastolic 58–62; PULSE 43–60; RESP 13–16; TEMP 36.6; O2SAT 92–95
--- NOTE | 2023-08-18 06:10 | PC.NURSE ---
Another RN assessed patient's neurological status and patient started verbally communicating with RN. Patient was able to state that she's from [place], [place] and she has two sons. In addition, she was able to drink water effectively with no difficulty. Until another RN walked in her field of vision and patient immediately closed her eyes and became non-verbal.
[2023-08-18 07:03] LABS: Alanine Aminotransferase 15 U/L (6-35); Albumin Level 3.3 g/dL (3.5-5.1); Alkaline Phosphatase 115 U/L (38-126); Anion Gap 6 mmol/L (8-16); Aspartate Amino Transferase 21 U/L (14-36); Bilirubin,Total 0.5 mg/dL (0.2-1.3); Blood Urea Nitrogen 23 mg/dL (7-17); Carbon Dioxide 27 mmol/L (22-30); Chloride 106 mmol/L (98-107); Estimated CRCL calculation 31 ml/min; Estimated Glomerular Filt Rate 39; Glucose 82 mg/dL (65-110); Potassium 3.7 mmol/L (3.4-5.0); Sodium 139 mmol/L (137-145)
[2023-08-18 07:13] LABS: Basophils Percent Auto 0.6 % (0.2-1.2); Eosinophils Absolute Auto 0.3 K/mm3 (0-0.3); Eosinophils Percent Auto 4.3 % (0-4.4); Hematocrit 30.5 % (37.0-47.0); Hemoglobin 9.7 g/dL (12.0-15.0); Immature Granulocyte Absolute 0.02 K/mm3 (0.00-0.031); Immature Granulocyte Percent A 0.3 % (0-0.5); Lymphocytes Absolute Auto 1.01 K/mm3 (0.9-3.2); Lymphocytes Percent Auto 13.9 % (18.3-44.2); Mean Corpuscular HGB Conc 31.8 g/dl (32-36); Mean Corpuscular Hemoglobin 30.4 pg (26-34); Mean Corpuscular Volume 95.6 fl (80-100); Monocytes Absolute Auto 0.7 K/mm3 (0.1-0.6); Monocytes Percent Auto 9.2 % (2.6-8.5); Neutrophils Absolute Auto 5.2 K/mm3 (1.3-6.7); Neutrophils Percent Auto 71.7 % (45.5-73.1); Platelet Count Result 198 k/mm3 (150-375); Red Blood Count 3.19 M/mm3 (4.2-5.4); Red Cell Distribution Width 14.6 % (11.5-14.5); White Blood Count 7.3 K/mm3 (4.5-10.0)
[2023-08-18 07:52] LABS: Glucose Point of Care 85 mg/dl (65-105)
[2023-08-18] MEDS: CHOLECALCIFEROL 1,000 UNITS TABLET 2000 UNITS PO (08:43)
[2023-08-18] MEDS: oxyBUTYnin CHLORIDE 5 MG TABLET PO ×2 (08:43→18:06)
[2023-08-18] MEDS: polyethylene glycoL 3350 17 GM POWD.PACK PO (08:43)
[2023-08-18] MEDS: PANTOPRAZOLE 40 MG TABLET PO (08:44)
[2023-08-18] MEDS: FERROUS SULFATE 325 MG TABLET DR BY MOUTH (08:44)
[2023-08-18] MEDS: LOSARTAN POTASSIUM 25 MG TABLET PO (08:44)
[2023-08-18] MEDS: allopurinoL 100 MG TABLET PO (08:44)
[2023-08-18 11:46] LABS: Glucose Point of Care 128 mg/dl (65-105)
--- NOTE | 2023-08-18 14:57 | PM.CNCAR ---
Assessment and Plan Assessment and plan (1) Diastolic congestive heart failure: Code(s): I50.30 - Unspecified diastolic (congestive) heart failure Status: Acute Assessment and Plan: Stable. I will resume her oral Lasix at 40mg QD. (2) Sinus bradycardia: Code(s): R00.1 - Bradycardia, unspecified Status: Acute Assessment and Plan: Chronic. Avoid AV [place] blocking agents. (3) CAD (coronary artery disease): Code(s): I25.10 - Atherosclerotic heart disease of [place] coronary artery without angina pectoris Status: Chronic Assessment and Plan: Continue ASA, Plavix, and statin. Given patient's mental status, she currently is not taking PO meds, which is a concern given the fact that she had complex PCI done in April 2023 and risk of stent thrombosis being off of DAPT. Will need to have her take her DAPT as soon as she is able to or may need to consider rectal ASA in the meantime. Plan Recommendations/plan discussed with Hospitalist. History of Present Illness History of Present Illness Consult date/time: 08/18/23 14:57 Requesting physician: Bety Ac PA-C Consult reason: Other (Bradycardia) Reason For Visit: Unresponsiveness Narrative: This is an 83 year old female with chronic diastolic heart failure, coronary artery disease s/p CABG, history of recent PCI/atherectomy/stenting of ostial left main and left circumflex in 04/2023, hypertension, diabetes, chronic kidney disease who was recently discharged from [facility] on 08/14 after being admitted there for weakness and falls. Patient was given IV Lasix for acute on chronic diastolic heart failure. There was concern for possible dementia. Outpatient neuropsychological testing was recommended. Patient was brought to [facility] on 08/17 from [facility] after being found unresponsive by the staff. Upon EMS arrival, she was only responsive to noxious stimuli. She was given Naloxone and she started to arouse, however, she is not on narcotics and UDS negative. At the time of my evaluation, patient responds to pain, but otherwise not responsive. Daughters are at bedside and report that she has had issues with her mental status and memory issues for sometime now. Review of Systems Review of Systems: ROS unobtainable: Yes unobtainable due to mental status PMFSH Past Medical History Medical History Chronic anemia Chronic kidney disease Coronary artery disease Diastolic congestive heart failure Erosive gastritis Hyperlipidemia Hypertension Hypothyroidism Hypothyroidism Obesity Pulmonary hypertension Retinopathy Sick sinus syndrome Type 2 diabetes mellitus Surgical History Surgical History History of cholecystectomy History of coronary artery bypass graft History of knee replacement History of repair of rotator cuff History of tonsillectomy History of tubal ligation Family History Family History Sibling Patient's sister is in good health Family history of diabetes mellitus in first degree relative Patient's brother is in good health Father Family history of diabetes mellitus in first degree relative Patient's father is Mother Patient's mother is Social History Social History Social History: The patient is and has 3 children. The patient is retired from [employer]. She has never smoked. She does not use any alcohol marijuana or illicit drugs. Her children on the durable power research attorney for healthcare. She is from [facility] status full code Smoking status: Never smoker Second hand tobacco smoke exposure: No Alcohol intake: current Drinks per week: 1 Alcohol use details: socially Substance use: never Substance use t
--- NOTE | 2023-08-18 15:16 | PM.IMPN ---
Progress Note: A&P Assessment and Plan (1) Unresponsive episode: Code(s): R40.4 - Transient alteration of awareness Status: Acute (2) Confusion: Code(s): R41.0 - Disorientation, unspecified Status: Acute (3) Diastolic congestive heart failure: Code(s): I50.30 - Unspecified diastolic (congestive) heart failure Status: Acute (4) Chronic kidney disease: Code(s): N18.9 - Chronic kidney disease, unspecified Status: Acute (5) Chronic anemia: Code(s): D64.9 - Anemia, unspecified Status: Acute (6) Coronary artery disease: Code(s): I25.10 - Atherosclerotic heart disease of [place] coronary artery without angina pectoris Status: Acute (7) Pulmonary hypertension: Code(s): I27.20 - Pulmonary hypertension, unspecified Status: Acute (8) Hyperlipidemia: Code(s): E78.5 - Hyperlipidemia, unspecified Status: Acute (9) Hypertension: Code(s): I10 - Essential (primary) hypertension Status: Acute (10) Hypothyroidism: Code(s): E03.9 - Hypothyroidism, unspecified Status: Acute (11) Sick sinus syndrome: Code(s): I49.5 - Sick sinus syndrome Status: Acute Plan The patient presented to the emergency department for evaluation after she was found unresponsive by staff at her facility as per HPI. She started talking more after receiving naloxone in the ED however her urine drug screen was negative for opiates. She has prescriptions for hydrocodone and baclofen on her medication list however. Thus far her workup has been pretty unrevealing. Blood pressures have been stable and in fact they have been running in the 170s to 190 systolic. Her heart rate fluctuates in the upper 30s to low 50s which is chronic for her. Brain CT did not show any acute findings and she has no focal deficits on exam today. Patient told the ED physician that she was just sleeping. Chest x-ray shows congestion and pneumonia seems unlikely as she is afebrile with a normal white blood cell count. UA was pretty benign. She gives no history to suggest underlying infection. Thus I suspect this may very well be medication related in her baclofen and hydrocodone are going to be held for now. Check TSH, ammonia, ABG, and B12 for completeness sake. Continue neurologic checks q.4 hours. Per family request, Dr. West has been consulted for her bradycardia. Chronic anemia and kidney disease are stable on review of previous labs. ProBNP is a bit elevated than what she typically runs and again she was recently hospitalized at [facility] with CHF. Furosemide 20 mg IV x1, resume p.o. in a.m.. Initiate sliding scale insulin, Accu-Cheks, and hypoglycemic protocol. Pt is not tolerating oral medications plan to use rectal ASA I will consult hospice for this pt as pt appears to continue to be unresponsive to verbal commands today Subjective Date/time seen: 08/18/23 15:16 Interval history: 83-year-old female with coronary artery disease status post bypass in 2010, sick sinus syndrome, diastolic dysfunction grade 2 with a recent EF of 60 to 65%, severe pulmonary hypertension, hypertension, type 2 diabetes mellitus, hypothyroidism, chronic anemia, and chronic kidney disease who presented to the emergency department via EMS from [facility] for evaluation after she was found unresponsive by staff. She was admitted to [facility] last week after presenting to their facility following several falls, reportedly treated for congestive heart failure. She was discharged this past Thursday. This morning staff at her facility found her unresponsive and EMS was summoned. On their arrival and upon arrival to the ED she was responsive only to noxious stimuli. She was given 0.4 mg IV naloxone and she started to arouse thereafter however she is not on narcotics and urine drug screen was negative for the same. Pt is much the same difficult to arouse long discussion
[2023-08-18 17:46] LABS: Glucose Point of Care 95 mg/dl (65-105)
[2023-08-18 21:18] LABS: Glucose Point of Care 113 mg/dl (65-105)
[2023-08-18] MEDS: SENNA/DOCUSATE SODIUM TABLET 1 TAB PO (21:33)
[2023-08-18] MEDS: ASPIRIN 81 MG ENTERIC TABLET PO (21:34)
[2023-08-18] MEDS: CLOPIDOGREL BISULFATE 75 MG TABLET PO (21:34)
[2023-08-18] MEDS: ATORVASTATIN 20 MG TABLET PO (21:35)
[2023-08-19 06:00] VITALS: BP 133/76; PULSE 84; RESP 12; TEMP 36.4; O2SAT 95
[2023-08-19] MEDS: CHOLECALCIFEROL 1,000 UNITS TABLET 2000 UNITS PO (09:05)
[2023-08-19] MEDS: LOSARTAN POTASSIUM 25 MG TABLET PO (09:06)
[2023-08-19] MEDS: PANTOPRAZOLE 40 MG TABLET PO (09:06)
[2023-08-19] MEDS: FERROUS SULFATE 325 MG TABLET DR BY MOUTH (09:06)
[2023-08-19] MEDS: oxyBUTYnin CHLORIDE 5 MG TABLET PO ×2 (09:06→17:21)
[2023-08-19] MEDS: allopurinoL 100 MG TABLET PO (09:06)
[2023-08-19] MEDS: polyethylene glycoL 3350 17 GM POWD.PACK PO (09:06)
[2023-08-19 09:08] VITALS: O2SAT 95
[2023-08-19 11:45] LABS: Glucose Point of Care 134 mg/dl (65-105)
--- NOTE | 2023-08-19 12:57 | PM.IMPN ---
Progress Note: A&P Assessment and Plan (1) Unresponsive episode: Code(s): R40.4 - Transient alteration of awareness Status: Acute (2) Confusion: Code(s): R41.0 - Disorientation, unspecified Status: Acute (3) Diastolic congestive heart failure: Code(s): I50.30 - Unspecified diastolic (congestive) heart failure Status: Acute (4) Chronic kidney disease: Code(s): N18.9 - Chronic kidney disease, unspecified Status: Acute (5) Chronic anemia: Code(s): D64.9 - Anemia, unspecified Status: Acute (6) Coronary artery disease: Code(s): I25.10 - Atherosclerotic heart disease of [place] coronary artery without angina pectoris Status: Acute (7) Pulmonary hypertension: Code(s): I27.20 - Pulmonary hypertension, unspecified Status: Acute (8) Hyperlipidemia: Code(s): E78.5 - Hyperlipidemia, unspecified Status: Acute (9) Hypertension: Code(s): I10 - Essential (primary) hypertension Status: Acute (10) Hypothyroidism: Code(s): E03.9 - Hypothyroidism, unspecified Status: Acute (11) Sick sinus syndrome: Code(s): I49.5 - Sick sinus syndrome Status: Acute Plan The patient presented to the emergency department for evaluation after she was found unresponsive by staff at her facility as per HPI. She started talking more after receiving naloxone in the ED however her urine drug screen was negative for opiates. She has prescriptions for hydrocodone and baclofen on her medication list however. Thus far her workup has been pretty unrevealing. Blood pressures have been stable and in fact they have been running in the 170s to 190 systolic. Her heart rate fluctuates in the upper 30s to low 50s which is chronic for her. Brain CT did not show any acute findings and she has no focal deficits on exam today. Patient told the ED physician that she was just sleeping. Chest x-ray shows congestion and pneumonia seems unlikely as she is afebrile with a normal white blood cell count. UA was pretty benign. She gives no history to suggest underlying infection. Thus I suspect this may very well be medication related in her baclofen and hydrocodone are going to be held for now. Check TSH, ammonia, ABG, and B12 for completeness sake. Continue neurologic checks q.4 hours. Per family request, Dr. West has been consulted for her bradycardia. Chronic anemia and kidney disease are stable on review of previous labs. ProBNP is a bit elevated than what she typically runs and again she was recently hospitalized at [facility] with CHF. Furosemide 20 mg IV x1, resume p.o. in a.m.. Initiate sliding scale insulin, Accu-Cheks, and hypoglycemic protocol. Pt is not tolerating oral medications plan to use rectal ASA I will consult hospice for this pt as pt appears to continue to be unresponsive to verbal commands today Subjective Date/time seen: 08/19/23 12:57 Interval history: 83-year-old female with coronary artery disease status post bypass in 2010, sick sinus syndrome, diastolic dysfunction grade 2 with a recent EF of 60 to 65%, severe pulmonary hypertension, hypertension, type 2 diabetes mellitus, hypothyroidism, chronic anemia, and chronic kidney disease who presented to the emergency department via EMS from [facility] for evaluation after she was found unresponsive by staff. She was admitted to [facility] last week after presenting to their facility following several falls, reportedly treated for congestive heart failure. She was discharged this past Thursday. This morning staff at her facility found her unresponsive and EMS was summoned. On their arrival and upon arrival to the ED she was responsive only to noxious stimuli. She was given 0.4 mg IV naloxone and she started to arouse thereafter however she is not on narcotics and urine drug screen was negative for the same. Pt is much the same difficult to arouse long discussion
--- NOTE | 2023-08-19 13:04 | PM.IMPN ---
Progress Note: A&P Assessment and Plan (1) Unresponsive episode: Code(s): R40.4 - Transient alteration of awareness Status: Acute (2) Confusion: Code(s): R41.0 - Disorientation, unspecified Status: Acute (3) Diastolic congestive heart failure: Code(s): I50.30 - Unspecified diastolic (congestive) heart failure Status: Acute (4) Chronic kidney disease: Code(s): N18.9 - Chronic kidney disease, unspecified Status: Acute (5) Chronic anemia: Code(s): D64.9 - Anemia, unspecified Status: Acute (6) Coronary artery disease: Code(s): I25.10 - Atherosclerotic heart disease of [place] coronary artery without angina pectoris Status: Acute (7) Pulmonary hypertension: Code(s): I27.20 - Pulmonary hypertension, unspecified Status: Acute (8) Hyperlipidemia: Code(s): E78.5 - Hyperlipidemia, unspecified Status: Acute (9) Hypertension: Code(s): I10 - Essential (primary) hypertension Status: Acute (10) Hypothyroidism: Code(s): E03.9 - Hypothyroidism, unspecified Status: Acute (11) Sick sinus syndrome: Code(s): I49.5 - Sick sinus syndrome Status: Acute Plan The patient presented to the emergency department for evaluation after she was found unresponsive by staff at her facility as per HPI. She started talking more after receiving naloxone in the ED however her urine drug screen was negative for opiates. She has prescriptions for hydrocodone and baclofen on her medication list however. Thus far her workup has been pretty unrevealing. Blood pressures have been stable and in fact they have been running in the 170s to 190 systolic. Her heart rate fluctuates in the upper 30s to low 50s which is chronic for her. Brain CT did not show any acute findings and she has no focal deficits on exam today. Patient told the ED physician that she was just sleeping. Chest x-ray shows congestion and pneumonia seems unlikely as she is afebrile with a normal white blood cell count. UA was pretty benign. She gives no history to suggest underlying infection. Thus I suspect this may very well be medication related in her baclofen and hydrocodone are going to be held for now. Check TSH, ammonia, ABG, and B12 for completeness sake. Continue neurologic checks q.4 hours. Per family request, Dr. West has been consulted for her bradycardia. Chronic anemia and kidney disease are stable on review of previous labs. ProBNP is a bit elevated than what she typically runs and again she was recently hospitalized at [facility] with CHF. Furosemide 20 mg IV x1, resume p.o. in a.m..? Initiate sliding scale insulin, Accu-Cheks, and hypoglycemic protocol. Cardiology will like ASA plavix andstatin to continue. Pt appears oriented x3 today holding good conversation neurology consulted Family deciding on SNF v hospice Subjective Date/time seen: 08/19/23 13:04 Interval history: 83-year-old female with coronary artery disease status post bypass in 2010, sick sinus syndrome, diastolic dysfunction grade 2 with a recent EF of 60 to 65%, severe pulmonary hypertension, hypertension, type 2 diabetes mellitus, hypothyroidism, chronic anemia, and chronic kidney disease who presented to the emergency department via EMS from [facility] for evaluation after she was found unresponsive by staff. She was admitted to [facility] last week after presenting to their facility following several falls, reportedly treated for congestive heart failure. She was discharged this past Thursday. This morning staff at her facility found her unresponsive and EMS was summoned. On their arrival and upon arrival to the ED she was responsive only to noxious stimuli. She was given 0.4 mg IV naloxone and she started to arouse thereafter however she is not on narcotics and urine drug screen was negative for the same. Pt is much the same difficult to arouse long discussio
[2023-08-19 14:00] VITALS: BP 162/57; PULSE 50; RESP 18; TEMP 36.1; O2SAT 93
--- NOTE | 2023-08-19 14:00 | WPDNEURCNPN ---
Assessment and Plan Assessment and plan (1) Coronary artery disease: Code(s): I25.10 - Atherosclerotic heart disease of [place] coronary artery without angina pectoris Status: Acute (2) Hyperlipidemia: Code(s): E78.5 - Hyperlipidemia, unspecified Status: Acute (3) Hypertension: Code(s): I10 - Essential (primary) hypertension Status: Acute (4) Diastolic congestive heart failure: Code(s): I50.30 - Unspecified diastolic (congestive) heart failure Status: Acute (5) Unstable gait: Code(s): R26.81 - Unsteadiness on feet Status: Acute (6) Neurologic gait dysfunction: Code(s): R26.9 - Unspecified abnormalities of gait and mobility Status: Acute Plan Generally nonfocal examination with all the underlying problems as outlined she is simply benefit and ongoing restorative physical therapy and continuation of the medication as such. Consult date: 08/19/23 HPI: Leila Baugh is a 83 year old female Has been admitted to the hospital through the emergency room for the complaints of change in the mental status patient had recently been discharged from the hospital after treatment for congestive heart failure and at that time it was reported that patient was also positive for covid. her medications include aspirin 81 mg daily, atorvastatin 20 mg at night, losartan 25 mg daily, clopidogrel 75 mg at night, levothyroxine 137 micro grain daily, furosemide 40 mg daily, and enoxaparin 30 mg daily subcu, is reportedly allergic to lisinopril, she has ongoing history of 1. Coronary artery disease with diastolic congestive heart failure 2. Hypertension 3. Hypothyroidism 4. Diabetes mellitus and 5. Chronic renal disease. She has undergone multiple surgeries as outlined particularly involving knee replacement. She has never a smoker drinks only 1 drink per week, on initial eval in the emergency room she was found to have only limited behavior bundy her vital signs were normal blood pressure was mildly elevated times, CBC was with hemoglobin only 9.7, complete lab otherwise negative chest x-ray cardiomegaly CT scan of the head no significant abnormalities, has already been seen by the shoe parts molder for the diastolic congestive heart failure and considering that she had PCI done in April of 2023 considering the possibility of stent thrombosis of the DA PT the medication needed to be restarted as per the shoe parts molder. CT of the head on 08/17 only with mild white matter disease that is nonspecific. PMFSH Past Medical History Medical History (Updated 08/19/23 @ 14:12 by Cecilio Wiggins MD) Chronic anemia Chronic kidney disease Coronary artery disease Diastolic congestive heart failure Erosive gastritis Hyperlipidemia Hypertension Hypothyroidism Hypothyroidism Neurologic gait dysfunction Obesity Pulmonary hypertension Retinopathy Sick sinus syndrome Type 2 diabetes mellitus Surgical History Surgical History History of cholecystectomy History of coronary artery bypass graft History of knee replacement History of repair of rotator cuff History of tonsillectomy History of tubal ligation Family History Family History Sibling Patient's sister is in good health Family history of diabetes mellitus in first degree relative Patient's brother is in good health Father Family history of diabetes mellitus in first degree relative Patient's father is Mother Patient's mother is Social History Social History Social History: The patient is and has 3 children. The patient is retired from [employer]. She has never smoked. She does not use any alcohol marijuana or illicit drugs. Her children on the durable power litigation attorney for healthcare. She is from [facility] status full code
[2023-08-19 16:44] LABS: Glucose Point of Care 167 mg/dl (65-105)
[2023-08-19 20:45] VITALS: BP 179/92; PULSE 51; RESP 16; TEMP 35.9; O2SAT 98
[2023-08-19] MEDS: ASPIRIN 81 MG ENTERIC TABLET PO (20:58)
[2023-08-19] MEDS: SENNA/DOCUSATE SODIUM TABLET 1 TAB PO (20:58)
[2023-08-19] MEDS: ATORVASTATIN 20 MG TABLET PO (20:58)
[2023-08-19] MEDS: CLOPIDOGREL BISULFATE 75 MG TABLET PO (20:58)
[2023-08-19 21:04] LABS: Glucose Point of Care 201 mg/dl (65-105)
[2023-08-19 22:33] VITALS: BP 186/54; PULSE 52; O2SAT 93
[2023-08-20] MEDS: LEVOTHYROXINE SODIUM 112 MCG, LEVOTHYROXINE SODIUM 25 MCG 137 MCG PO (05:38)
[2023-08-20 06:00] VITALS: BP 178/79; PULSE 56; RESP 16; TEMP 36.3; O2SAT 95
[2023-08-20 08:22] LABS: Glucose Point of Care 105 mg/dl (65-105)
[2023-08-20] MEDS: PANTOPRAZOLE 40 MG TABLET PO (10:17)
[2023-08-20] MEDS: FERROUS SULFATE 325 MG TABLET DR BY MOUTH (10:17)
[2023-08-20] MEDS: CHOLECALCIFEROL 1,000 UNITS TABLET 2000 UNITS PO (10:17)
[2023-08-20] MEDS: LOSARTAN POTASSIUM 25 MG TABLET PO (10:17)
[2023-08-20] MEDS: FUROSEMIDE 40 MG TABLET PO (10:17)
[2023-08-20] MEDS: oxyBUTYnin CHLORIDE 5 MG TABLET PO (10:18)
[2023-08-20] MEDS: allopurinoL 100 MG TABLET PO (10:18)
--- NOTE | 2023-08-20 12:39 | PM.DS ---
DS: Admitting Diagnosis Discharge Date 08/20/2023 Admitting Diagnosis Altered mental status DS: Discharge Diagnosis Discharge Diagnosis (1) Unresponsive episode: Code(s): R40.4 - Transient alteration of awareness Status: Acute (2) Confusion: Code(s): R41.0 - Disorientation, unspecified Status: Acute (3) Diastolic congestive heart failure: Code(s): I50.30 - Unspecified diastolic (congestive) heart failure Status: Acute (4) Chronic kidney disease: Code(s): N18.9 - Chronic kidney disease, unspecified Status: Acute (5) Chronic anemia: Code(s): D64.9 - Anemia, unspecified Status: Acute (6) Coronary artery disease: Code(s): I25.10 - Atherosclerotic heart disease of [place] coronary artery without angina pectoris Status: Acute (7) Pulmonary hypertension: Code(s): I27.20 - Pulmonary hypertension, unspecified Status: Acute (8) Hyperlipidemia: Code(s): E78.5 - Hyperlipidemia, unspecified Status: Acute (9) Hypertension: Code(s): I10 - Essential (primary) hypertension Status: Acute (10) Hypothyroidism: Code(s): E03.9 - Hypothyroidism, unspecified Status: Acute (11) Sick sinus syndrome: Code(s): I49.5 - Sick sinus syndrome Status: Acute DS: Summary Hospital Course Hospital Course: The patient presented to the emergency department for evaluation after she was found unresponsive by staff at her facility as per HPI. She started talking more after receiving naloxone in the ED however her urine drug screen was negative for opiates. She has prescriptions for hydrocodone and baclofen on her medication list however. Thus far her workup has been pretty unrevealing. Blood pressures have been stable and in fact they have been running in the 170s to 190 systolic. Her heart rate fluctuates in the upper 30s to low 50s which is chronic for her. Brain CT did not show any acute findings and she has no focal deficits on exam today. Patient told the ED physician that she was just sleeping. Chest x-ray shows congestion and pneumonia seems unlikely as she is afebrile with a normal white blood cell count. UA was pretty benign. She gives no history to suggest underlying infection. Thus I suspect this may very well be medication related in her baclofen and hydrocodone are going to be held for now. All other workup has been negative cardiology neurology was also consulted. Patient slowly improved back to baseline. She has been out of the hospital for past few months and goals of care discussion was made due to failure to thrive since her initial admission few months back. Family has opted to take her home with hospice arrangements were made and she will be discharged to nursing facility with hospice care. Time Spent with Patient Time attestation: Total time spent providing and/or coordinating discharge services: 45 minutes DS: Data Data Completed and Pending Labs on day of discharge: Labs from last 24 hours 08/20/23 08/19/23 08/19/23 07:56 20:50 16:40 POC Capillary Glucose 105 201 H 167 H Imaging Radiologist's impression: ITS Impressions Chest X-Ray 08/17/23 11:13 IMPRESSION: Cardiomegaly and congestive changes, suspected perihilar pulmonary edema. Pneumonia is not excluded Aortic atherosclerosis Head CT 08/17/23 12:15 IMPRESSION: 1. Stable mild nonspecific cerebral white matter disease, which likely represents chronic small vessel ischemic disease. Venous Doppler Study 08/17/23 22:24 IMPRESSION: Patent bilateral lower extremity veins. No evidence of deep venous thrombosis. Discharge Plan Discharge Attending physician on discharge: Barron Wise Consulting providers: Becky De La Paz Riaz Discharging Clinician: Barron Wise Anticipated Discharge Date/Time: 08/20/23 12:31 Patient Disposition: Hospice - Home Activity: as tolerated
== END 2023-08-20 14:05 | disposition hospice, home (50) | DRG 884 ==
LOC: ANHED 10:48 → ANH3MEDSUR 14:29
PROVIDERS: Physician Assistant; Admitting Provider Internal Medicine; Emergency Provider General Practice; PCP Internal Medicine; Visit Provider Internal Medicine
DX: R40.4 Transient alteration of awareness (principal); I13.0 Hypertensive heart and chronic kidney disease with heart failure and stage 1 through stage 4 chronic kidney disease, or unspecified chronic kidney disease; I50.32 Chronic diastolic (congestive) heart failure; N18.9 Chronic kidney disease, unspecified; T42.8X5A Adverse effect of antiparkinsonism drugs and other central muscle-tone depressants, initial encounter; I25.10 Atherosclerotic heart disease of native coronary artery without angina pectoris; I27.20 Pulmonary hypertension, unspecified; I49.5 Sick sinus syndrome; D64.9 Anemia, unspecified; E11.22 Type 2 diabetes mellitus with diabetic chronic kidney disease; E11.319 Type 2 diabetes mellitus with unspecified diabetic retinopathy without macular edema; E78.5 Hyperlipidemia, unspecified; E03.9 Hypothyroidism, unspecified; Z20.822 Contact with and (suspected) exposure to COVID-19; Z96.659 Presence of unspecified artificial knee joint; Z79.82 Long term (current) use of aspirin; Z79.02 Long term (current) use of antithrombotics/antiplatelets; Z95.1 Presence of aortocoronary bypass graft; Z95.5 Presence of coronary angioplasty implant and graft
CPT/HCPCS: 36415; 36600; 70450; 71045; 80053; 80307; 81001; 82140; 82375; 82607; 82805; 82948; 83050; 83735; 83880; 84439; 84443; 84480; 84484; 85025; 85610; 85730; 87635; 93005; 93970; 96374; 99285; A9270; G0378; J1940; J2310

== ENCOUNTER 2023-10-27 14:20 | Emergency (ER) | payer MEDICARE, SELFPAY ==
[2023-10-27] VITALS (7 sets, daily range): BP systolic 146–163; BP diastolic 47–74; PULSE 42–48; RESP 16; TEMP 36.4–36.6; O2SAT 95–98
--- NOTE | ~2023-10-27 | CT_ITS ---
EXAMINATION: CT brain wo con DATE: 10/27/2023 17:13 INDICATION: head injury . TECHNIQUE: Computed tomography (CT) of the head was performed without intravenous contrast. The mA wa s adjusted according to patient size. Iterative reconstruction technique was employed. The dose-lengt h product was 908.00 mGy-cm. COMPARISON: 08/17/2023. FINDINGS: No acute intracranial hemorrhage or extra-axial fluid collection. No hydrocephalus, mass, or herniation. No acute ischemic infarct. Unremarkable dural venous sinus attenuation. No acute osseous abnormality. The aerated spaces are clear. Moderate atrophy and chronic white matter change. Atherosclerotic intracranial calcification. Bilater al lens replacements. IMPRESSION: No acute intracranial process. Reviewed, dictated and finalized at location K. TENANCE MACHINIST
--- NOTE | ~2023-10-27 | CT_ITS ---
EXAMINATION: CT facial & cervical spine wo DATE: 10/27/2023 17:13 INDICATION: head injury TECHNIQUE: Computed tomography (CT) of the maxillofacial region and cervical spine was performed with out intravenous contrast. Automated exposure control and iterative reconstruction technique were empl oyed. The dose-length product was 567.54 mGy-cm. COMPARISON: CT C-spine 01/05/2023 FINDINGS: CERVICAL: Vertebral Body Alignment: Reversed lordosis. Trace grade 1 anterolisthesis at C2-3. 2 mm anterolisthe sis at C3-4, increased since the prior study, with slight uncovering of the C3-4 facets. Craniocervical and atlantoaxial alignment: Moderate degenerative change with pannus. Alignment intact . Osseous structures/fracture: No evidence of a lytic or blastic process in the visualized spine. No e vidence of acute fracture. Cervical soft tissues: The paraspinal soft tissues planes are maintained. Degenerative changes: Multilevel severe degenerative disc disease. Multilevel facet arthropathy multi level moderate right neural foraminal narrowing. Multilevel moderate central canal narrowing. FACE: Soft Tissues: Right periorbital and cheek swelling. Facial bones: No acute fracture. No lytic or blastic process. Eyes: The globes are intact. The soft tissue planes of the orbits are maintained. Paranasal Sinuses: The visualized aerated spaces are clear. Foreign Bodies: No radiopaque foreign bodies. Other Findings: None. IMPRESSION: No acute fracture in the cervical spine. Increased but still mild grade 1 anterolisthesis at C3-4, with facet uncovering, which may reflect li gamentous or capsular injury. Consider conservative management and MR of the cervical spine to exclud e soft tissue injury. No acute facial bone fracture. Reviewed, dictated and finalized at location K. NT PROSECUTION PARALEGAL IMPRESSION: No acute fracture in the cervical spine. Increased but still mild grade 1 anterolisthesis at C3-4, with facet uncovering , which may reflect ligamentous or capsular injury. Consider conservative manag ement and MR of the cervical spine to exclude soft tissue injury. No acute facial bone fracture.
--- NOTE | 2023-10-27 17:56 | ED.FALL ---
HPI - Fall General Chief Complaint: Fall Stated Complaint: fall Time Seen by Provider: 10/27/23 16:56 Source: patient, family, EMS and old records reviewed Mode of arrival: EMS Limitations: dementia History of Present Illness HPI Narrative: Patient is an 83 y/o female, with PMH of dementia, who presents to the ED via EMS with report of fall with HI. Patient is resident of [facility]. She is currently on hospice care. Per EMS/senior living report, patient was sitting in her wheelchair today, bent forward to pick something off of the ground when she fell, hitting her face on the ground. She did sustain trauma to the right side of her face. Unknown LOC. Patient was sent here for further evaluation. She is on Plavix. Patient unable to tell me definitively how the fall occurred. She denies any acute complaints. Denies neck or back pain, headache, vision changes, dizziness, lightheadedness, nausea, vomiting, arm or leg pain. Related Data Home Medications Medication Instructions Recorded Confirmed aspirin 81 mg tablet,delayed 81 mg PO HS 03/26/20 08/27/23 release (Adult Low Dose Aspirin) atorvastatin 20 mg tablet 20 mg PO HS 03/26/20 08/27/23 losartan 25 mg tablet 25 mg PO DAILY 03/26/20 08/27/23 clopidogrel 75 mg tablet 75 mg PO HS 10/17/21 08/27/23 acetaminophen 650 mg tablet 650 mg PO Q6H PRN Pain 02/05/23 08/27/23 cyanocobalamin (vitamin B-12) 1,000 mcg IM DIRECTED 02/05/23 08/27/23 1,000 mcg/mL injection solution ferrous sulfate 325 mg (65 mg 325 mg PO DAILY 02/05/23 08/27/23 iron) tablet levothyroxine 125 mcg tablet 137 mcg PO DAILY 02/05/23 08/27/23 naproxen 250 mg tablet 250 mg PO BID PRN pain 07/03/23 08/27/23 furosemide 40 mg tablet 40 mg PO DAILY 08/17/23 08/27/23 pantoprazole 40 mg tablet,delayed 40 mg PO DAILY 08/17/23 08/27/23 release Allergies Allergy/AdvReac Type Severity Reaction Status Date / Time lisinopril Allergy Intermediate Difficulty Verified 10/27/23 14:30 Breathing Review of Systems Review of Systems: CONSTITUTIONAL: Denies fever, chills, or sweats. EYES: Denies vision changes. CARDIOVASCULAR: Denies chest pain. RESPIRATORY: Denies cough or dyspnea. GASTROINTESTINAL: Denies abdominal pain, nausea, vomiting. MUSCULOSKELETAL: Denies back pain, extremity pain, myalgia. NEUROLOGIC: See HPI. All systems reviewed & are unremarkable except as noted in HPI and below PMFSH Past Medical History Medical History Chronic anemia Chronic kidney disease Coronary artery disease Diastolic congestive heart failure Erosive gastritis Hyperlipidemia Hypertension Hypothyroidism Hypothyroidism Neurologic gait dysfunction Obesity Pulmonary hypertension Retinopathy Sick sinus syndrome Type 2 diabetes mellitus Surgical History Surgical History History of cholecystectomy History of coronary artery bypass graft History of knee replacement History of repair of rotator cuff History of tonsillectomy History of tubal ligation Family History Family History Sibling Patient's sister is in good health Family history of diabetes mellitus in first degree relative Patient's brother is in good health Father Family history of diabetes mellitus in first degree relative Patient's father is Mother Patient's mother is Social History Social History Social History: The patient is and has 3 children. The patient is retired from [employer]. She has never smoked. She does not use any alcohol marijuana or illicit drugs. Her children on the durable power shipping & receiving lead for healthcare. She is from [facility] status full code Smoking status: Never smoker Second hand tobacco smoke exposure
--- NOTE | 2023-10-27 19:00 | PC.NURSE ---
report called to Cindy at [facility] , waiting for transport, family and pt updated. Pt resting
== END 2023-10-27 19:37 ==
PROVIDERS: Emergency Provider Physician Assistant; PCP Internal Medicine
DX: S05.11XA Contusion of eyeball and orbital tissues, right eye, initial encounter (principal); H11.421 Conjunctival edema, right eye; I13.0 Hypertensive heart and chronic kidney disease with heart failure and stage 1 through stage 4 chronic kidney disease, or unspecified chronic kidney disease; E11.22 Type 2 diabetes mellitus with diabetic chronic kidney disease; N18.9 Chronic kidney disease, unspecified; I50.30 Unspecified diastolic (congestive) heart failure; E03.9 Hypothyroidism, unspecified; I27.20 Pulmonary hypertension, unspecified; W05.0XXA Fall from non-moving wheelchair, initial encounter
CPT/HCPCS: 70450; 70486; 72125; 99284

== ENCOUNTER 2023-11-12 07:19 | Emergency (ER) | payer MEDICARE, SELFPAY ==
--- NOTE | ~2023-11-12 | CT_ITS ---
EXAMINATION: CT brain wo con DATE: 11/12/2023 07:56 INDICATION: Head injury. TECHNIQUE: Computed tomography (CT) of the head was performed without intravenous contrast. The mA wa s adjusted according to patient size. Iterative reconstruction technique was employed. The dose-lengt h product was 529.67 mGy-cm. COMPARISON: Head CT 10/27/2023 FINDINGS: There is no intracranial hemorrhage, acute infarction, or abnormal intracranial mass lesion . There are scattered areas of low attenuation in the cerebral white matter, which is within normal l imits for the patient's age. The ventricles are normal in size. There are likely changes of ocular le ns replacement surgeries. There is mild mucosal thickening in the paranasal sinuses. The mastoid air cells are normal. There is right posterior scalp soft tissue swelling. IMPRESSION: 1. Normal aging brain. Reviewed, dictated and finalized at location E. LSTERY DEPARTMENT SUPERVISOR IMPRESSION: 1. Normal aging brain.
--- NOTE | ~2023-11-12 | CT_ITS ---
EXAMINATION: CT facial & cervical spine wo DATE: 11/12/2023 07:56 INDICATION: Face and neck injury. TECHNIQUE: Computed tomography (CT) of the maxillofacial region and cervical spine was performed with out intravenous contrast. Automated exposure control and iterative reconstruction technique were empl oyed. The dose-length product was 495.98 mGy-cm. COMPARISON: CT 10/27/2023 FINDINGS: MAXILLOFACIAL CT: There are likely changes of ocular lens replacement surgeries. There is mild mucosal thickening in th e ethmoid sinuses. The mastoid air cells are normal. Bone alignment is normal. No fracture. CERVICAL SPINE CT: There is 7 degrees levocurvature of cervical spine. There is kyphosis of cervical spine. There is 2 m m anterolisthesis of C3 on C4. Vertebral body heights are normal. There is moderately decreased disc height at C3-C4 and severely decreased disc height from C4-C5 through T2-T3. The following disc level s are specifically discussed: C2-C3: There is mild bilateral uncovertebral joint osteoarthritis. There is severe bilateral facet vinny int osteoarthritis. There is no neural foraminal stenosis. There is no central canal stenosis. C3-C4: There is moderate right and severe left uncovertebral joint osteoarthritis. There is severe bi lateral facet joint osteoarthritis. There is mild bilateral neural foraminal stenosis. There is mild central canal stenosis. C4-C5: There is severe bilateral uncovertebral joint osteoarthritis. There is severe bilateral facet joint osteoarthritis. There is moderate right and mild left neural foraminal stenosis. There is mild central canal stenosis. C5-C6: There is severe bilateral uncovertebral joint osteoarthritis. There is severe bilateral facet joint osteoarthritis. There is mild bilateral neural foraminal stenosis. There is mild central canal stenosis. C6-C7: There is severe bilateral uncovertebral joint osteoarthritis. There is severe bilateral facet joint osteoarthritis. There is mild bilateral neural foraminal stenosis. There is mild central canal stenosis. C7-T1: There is severe bilateral uncovertebral joint osteoarthritis. There is severe bilateral facet joint osteoarthritis. There is mild bilateral neural foraminal stenosis. There is mild central canal stenosis. IMPRESSION: 1. No fracture. 2. Severe cervical spondylosis. Reviewed, dictated and finalized at location E. TRICAL AND ELECTRONIC ASSEMBLER
[2023-11-12 07:19] VITALS: BP 101/48; PULSE 51; RESP 13; TEMP 36.6; O2SAT 100
--- NOTE | 2023-11-12 07:35 | ED.FALL ---
HPI - Fall General Chief Complaint: Fall Stated Complaint: fall History of Present Illness HPI Narrative: 83-year-old female presenting to the emergency department for evaluation after having a ground level. Patient had a fall a few days ago and did injure her face. retirement states that the patient had another fall today. Patient does have a small laceration to the top of her right-sided scalp. Patient is unaware of any pain or injury. Patient denies any complaints. Related Data Home Medications Medication Instructions Recorded Confirmed aspirin 81 mg tablet,delayed 81 mg PO HS 03/26/20 10/29/23 release (Adult Low Dose Aspirin) atorvastatin 20 mg tablet 20 mg PO HS 03/26/20 10/29/23 losartan 25 mg tablet 25 mg PO DAILY 03/26/20 10/29/23 clopidogrel 75 mg tablet 75 mg PO HS 10/17/21 10/29/23 acetaminophen 650 mg tablet 650 mg PO Q6H PRN Pain 02/05/23 10/29/23 cyanocobalamin (vitamin B-12) 1,000 mcg IM DIRECTED 02/05/23 10/29/23 1,000 mcg/mL injection solution ferrous sulfate 325 mg (65 mg 325 mg PO DAILY 02/05/23 10/29/23 iron) tablet levothyroxine 125 mcg tablet 137 mcg PO DAILY 02/05/23 10/29/23 naproxen 250 mg tablet 250 mg PO BID PRN pain 07/03/23 10/29/23 furosemide 40 mg tablet 40 mg PO DAILY 08/17/23 10/29/23 pantoprazole 40 mg tablet,delayed 40 mg PO DAILY 08/17/23 10/29/23 release Allergies Allergy/AdvReac Type Severity Reaction Status Date / Time lisinopril Allergy Intermediate Difficulty Verified 11/12/23 07:38 Breathing Review of Systems Review of Systems: All systems reviewed & are unremarkable except as noted in HPI and below PMFSH Past Medical History Medical History Chronic anemia Chronic kidney disease Coronary artery disease Diastolic congestive heart failure Erosive gastritis Hyperlipidemia Hypertension Hypothyroidism Hypothyroidism Neurologic gait dysfunction Obesity Pulmonary hypertension Retinopathy Sick sinus syndrome Type 2 diabetes mellitus Surgical History Surgical History History of cholecystectomy History of coronary artery bypass graft History of knee replacement History of repair of rotator cuff History of tonsillectomy History of tubal ligation Family History Family History Sibling Patient's sister is in good health Family history of diabetes mellitus in first degree relative Patient's brother is in good health Father Family history of diabetes mellitus in first degree relative Patient's father is Mother Patient's mother is Social History Social History Social History: The patient is and has 3 children. The patient is retired from [employer]. She has never smoked. She does not use any alcohol marijuana or illicit drugs. Her children on the durable power deputy prosecuting attorney for healthcare. She is from [facility] Code status full code Smoking status: Never smoker Second hand tobacco smoke exposure: No Alcohol intake: current Drinks per week: 1 Alcohol use details: socially Substance use: never Substance use type: does not use Lack of Transportation: No Lack of Food: Never True Current Housing: I Have Housing Concerned About Future Housing: No Difficulty Paying Gas/Electric Bills: No Difficulty Paying for Meds: No Currently Unemployed: No Education: High School Diploma/GED Difficulty w/ Childcare or Family Care: No Living arrangements: with family Spiritual care concerns: No Exam Narrative: APPEARANCE: Well appearing, no pain, no distress, well-nourished. HEAD: normocephalic, small laceration top right scalp. EYES: PERRLA/EOMI, conjunctivae clear. NOSE: Normal no drainage EARS:TMS clear with good light refl
[2023-11-12 08:45] VITALS: BP 127/89; PULSE 47; RESP 12; O2SAT 100
== END 2023-11-12 09:48 ==
PROVIDERS: Emergency Provider Emergency Medicine; PCP Family Medicine
DX: S01.01XA Laceration without foreign body of scalp, initial encounter (principal); I13.0 Hypertensive heart and chronic kidney disease with heart failure and stage 1 through stage 4 chronic kidney disease, or unspecified chronic kidney disease; E11.22 Type 2 diabetes mellitus with diabetic chronic kidney disease; N18.9 Chronic kidney disease, unspecified; I50.30 Unspecified diastolic (congestive) heart failure; E78.5 Hyperlipidemia, unspecified; E03.9 Hypothyroidism, unspecified; I25.10 Atherosclerotic heart disease of native coronary artery without angina pectoris; I27.20 Pulmonary hypertension, unspecified; I49.5 Sick sinus syndrome; D64.9 Anemia, unspecified; Z95.1 Presence of aortocoronary bypass graft; Z96.659 Presence of unspecified artificial knee joint; Z90.49 Acquired absence of other specified parts of digestive tract; Z79.82 Long term (current) use of aspirin; M47.812 Spondylosis without myelopathy or radiculopathy, cervical region; W19.XXXA Unspecified fall, initial encounter
CPT/HCPCS: 12001; 70450; 70486; 72125; 99284